=== PATIENT | male | born 1950 | race African-American/Black ===

== ENCOUNTER → 2016-06-26 | Outpatient (CLI) | payer MEDICAID ==
[2014-07-05 12:32] VITALS: BP 166/74
[2016-06-26 16:06] LABS: BASOPHILS # (AUTO) 0.1 X10^3/uL (0.0-0.1); BASOPHILS % (AUTO) 1.5 % (0.2-1.0); EOSINOPHILS # (AUTO) 0.3 x10^3/uL (0.0-0.2); EOSINOPHILS % (AUTO) 3.7 % (0.9-2.9); HEMATOCRIT 35.1 % (42.0-54.0); HEMOGLOBIN 10.9 g/dL (13.5-18.0); LYMPHOCYTES # (AUTO) 2.1 X10^3/uL (1.3-2.9); MEAN CORPUSCULAR HEMOGLOBIN 22.2 pg (27.0-34.0); MEAN CORPUSCULAR VOLUME 71.6 fL (80.0-100.0); MEAN PLATELET VOLUME 6.8 fL (7.4-11.0); MONOCYTES # (AUTO) 0.8 x10^3/uL (0.3-0.8); MONOCYTES % (AUTO) 10.6 % (0.0-13.0); NEUTROPHILS # (AUTO) 4.1 x10^3/uL (2.2-4.8); NEUTROPHILS % (AUTO) 55.2 % (42.0-75.0); PLATELET COUNT 399 X10^3/uL (150.0-450.0); RED BLOOD COUNT 4.91 X10^6/uL (4.7-6.0); WHITE BLOOD COUNT 7.4 X10^3/uL (3.6-10.0)
[2016-06-26 16:12] LABS: CREATININE,URINE 298.78 mg/dL (40-278); MICROALBUMIN,URINE 32.1 mg/L
[2016-06-26 16:14] LABS: HEMOGLOBIN A1C 6.8 % (4.5-6.2)
[2016-06-26 16:34] LABS: HYPOCHROMASIA 1+
[2016-06-26 16:37] LABS: ANISOCYTOSIS SLIGHT; BURR CELLS SLIGHT; TARGET CELLS SLIGHT
[2016-06-26 16:38] LABS: OVALOCYTES SLIGHT
[2016-06-26 16:52] LABS: ERYTHROCYTE SEDIMENTATION RATE 40 MM/HOUR (0-15)
[2016-06-26 16:53] LABS: PLATELET MORPHOLOGY COMMENT NORMAL (NORMAL)
[2016-06-26 16:59] LABS: BLOOD UREA NITROGEN 8 mg/dL (7-18); CALCIUM 8.7 mg/dL (8.5-10.1); CARBON DIOXIDE 27.1 mmol/L (21-32); CHLORIDE 103 mmol/L (98-107); COR NA(FOR HYPERGLY) 143 mmol/L (136-145); CREATININE 0.94 mg/dL (0.70-1.30); GLUCOSE 180 mg/dL (65-99); SODIUM 141 mmol/L (136-145); eGFR BLACK RACES > 60 (>60); eGFR NON BLACK RACES > 60 (>60)
--- NOTE | 2016-06-26 17:41 | RAD ---
HISTORY: Cough Study: PA and lateral Comparison: 06/13/2014 Findings: The trachea is midline. The heart is borderline enlarged but unchanged. The pulmonary vessels are n ormal. There is mild linear densities along the lung bases which are more prominent. There are mild degenerative changes throughout the spine. No effusion is seen. The bones are intact. IMPRESSION: Mild discoid atelectasis or scarring along the lung bases which is more prominent. Reported By:
--- NOTE | 2016-06-26 18:17 | RAD ---
HISTORY: Right hip pain Study: AP pelvis and frog-leg view right hip Comparison: None Findings: A single frontal view of the pelvis demonstrates the pelvic ring to be intact. No evidence for acut e cortical disruption or dislocation of the hip can be observed. Frog leg views of the hip fails to demonstrate evidence for fracture or significant joint abnormality. Impression: Mild joint space narrowing in both hips with no acute fracture. Reported By:
== END ==
LOC: LAB 14:53
PROVIDERS: ATTEND Nurse Practitioner Family
DX: M25.551 Pain in right hip (principal); R05 Cough; E11.40 Type 2 diabetes mellitus with diabetic neuropathy, unspecified
CPT/HCPCS: 36415; 71020; 73501; 80048; 82043; 83036; 85025; 85652; 86140

== ENCOUNTER → 2016-07-13 | Outpatient (CLI) | payer MEDICAID ==
[2014-07-05 12:32] VITALS: BP 166/74
[2016-07-13 10:05] LABS: URIC ACID 5.7 mg/dL (3.5-7.2)
[2016-07-13 10:07] LABS: BASOPHILS # (AUTO) 0.1 X10^3/uL (0.0-0.1); BASOPHILS % (AUTO) 1.7 % (0.2-1.0); EOSINOPHILS # (AUTO) 0.3 x10^3/uL (0.0-0.2); EOSINOPHILS % (AUTO) 4.5 % (0.9-2.9); HEMATOCRIT 36.6 % (42.0-54.0); HEMOGLOBIN 11.4 g/dL (13.5-18.0); LYMPHOCYTES # (AUTO) 1.9 X10^3/uL (1.3-2.9); MEAN CORPUSCULAR HEMOGLOBIN 22.3 pg (27.0-34.0); MEAN CORPUSCULAR HGB CONC 31.2 g/dL (33.0-35.0); MEAN CORPUSCULAR VOLUME 71.4 fL (80.0-100.0); MONOCYTES # (AUTO) 0.7 x10^3/uL (0.3-0.8); MONOCYTES % (AUTO) 10.8 % (0.0-13.0); NEUTROPHILS # (AUTO) 3.3 x10^3/uL (2.2-4.8); PLATELET COUNT 357 X10^3/uL (150.0-450.0); RED BLOOD COUNT 5.13 X10^6/uL (4.7-6.0); RED CELL DISTRIBUTION WIDTH 18.6 % (11.6-16.5); WHITE BLOOD COUNT 6.3 X10^3/uL (3.6-10.0)
[2016-07-13 10:46] LABS: ANISOCYTOSIS SLIGHT; HYPOCHROMASIA 1+; PLATELET MORPHOLOGY COMMENT NORMAL (NORMAL)
[2016-07-15 06:48] LABS: ANTI-NUCLEAR ANTIBODY TEST None Detected (None Detected)
== END ==
LOC: LAB 08:59
PROVIDERS: ATTEND Nurse Practitioner Family
DX: M25.551 Pain in right hip (principal); D64.89 Other specified anemias
CPT/HCPCS: 36415; 82607; 82728; 82746; 84466; 84550; 85025; 86200; 86308

== ENCOUNTER → 2016-07-27 | Outpatient (CLI) | payer MEDICAID ==
[2014-07-05 12:32] VITALS: BP 166/74
[2016-07-27 08:46] LABS: BASOPHILS # (AUTO) 0.1 X10^3/uL (0.0-0.1); BASOPHILS % (AUTO) 1.5 % (0.2-1.0); EOSINOPHILS # (AUTO) 0.4 x10^3/uL (0.0-0.2); HEMATOCRIT 35.8 % (42.0-54.0); HEMOGLOBIN 10.9 g/dL (13.5-18.0); LYMPHOCYTES # (AUTO) 3.2 X10^3/uL (1.3-2.9); LYMPHOCYTES % (AUTO) 41.3 % (21.0-51.0); MEAN CORPUSCULAR HEMOGLOBIN 22.1 pg (27.0-34.0); MEAN CORPUSCULAR HGB CONC 30.3 g/dL (33.0-35.0); MEAN CORPUSCULAR VOLUME 72.9 fL (80.0-100.0); MONOCYTES # (AUTO) 1.2 x10^3/uL (0.3-0.8); MONOCYTES % (AUTO) 15.8 % (0.0-13.0); NEUTROPHILS # (AUTO) 2.8 x10^3/uL (2.2-4.8); NEUTROPHILS % (AUTO) 36.4 % (42.0-75.0); PLATELET COUNT 352 X10^3/uL (150.0-450.0); RED BLOOD COUNT 4.91 X10^6/uL (4.7-6.0); RED CELL DISTRIBUTION WIDTH 19.2 % (11.6-16.5); WHITE BLOOD COUNT 7.8 X10^3/uL (3.6-10.0)
[2016-07-27 08:56] LABS: ALANINE AMINOTRANSFERASE 16 Units/L (12-78); ALBUMIN 3.1 g/dL (3.4-5.0); ALKALINE PHOSPHATASE 85 Units/L (46-116); ASPARTATE AMINO TRANSFERASE 13 Units/L (15-37); BLOOD UREA NITROGEN 8 mg/dL (7-18); CALCIUM 8.8 mg/dL (8.5-10.1); CHLORIDE 109 mmol/L (98-107); COR CA(FOR HYPOALB) 9.5 mg/dL (8.5-10.1); CREATININE 0.89 mg/dL (0.70-1.30); GLUCOSE 58 mg/dL (65-99); SODIUM 146 mmol/L (136-145); TOTAL PROTEIN 7.9 g/dL (6.4-8.2); eGFR BLACK RACES > 60 (>60); eGFR NON BLACK RACES > 60 (>60)
[2016-07-27 09:23] LABS: ANISOCYTOSIS 1+; HYPOCHROMASIA 1+; PLATELET MORPHOLOGY COMMENT NORMAL (NORMAL)
--- NOTE | 2016-07-29 08:46 | RAD ---
Skeletal bone survey, 30 two views provided Indication: Chronic pain in multiple joints Cervical spine without acute fracture or malalignment. No sclerotic or lytic lesion. Thoracic and jamie mbar spine demonstrates moderate multilevel spondylosis without lytic or sclerotic lesion. No lesion identified within the skull. Pelvis and bilateral proximal femoral are normal. No abnormality ident ified within either humerus. Curvilinear sclerotic lesions within the proximal right tibia and dista l right tibia are again noted. Postsurgical change with removal of hardware within the distal right fibular diaphysis. Left tibia demonstrates similar curvilinear sclerotic lesions within the proximal and distal tibial metaphysis. Curvilinear sclerotic lesion within the distal right radial metaphysi s. Similar sclerotic lesion within distal left radial metaphysis. Curvilinear sclerotic lesion withi n distal right femoral metaphysis. 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 No acute lytic or sclerotic lesion identified within the axial or appendicu lar skeleton. Reported By:
[2016-07-29 20:48] LABS: ALBUMIN (SPEP) 3.34 g/dL (3.75-5.01); ALPHA-1 (SPEP) 0.58 g/dL (0.19-0.46); ALPHA-2 (SPEP) 1.08 g/dL (0.48-1.05); GAMMA (SPEP) 1.38 g/dL (0.62-1.51)
== END ==
LOC: LAB 07:33
PROVIDERS: ATTEND Nurse Practitioner Family
DX: G89.29 Other chronic pain (principal)
CPT/HCPCS: 36415; 77075; 80053; 84165; 84166; 85025

== ENCOUNTER 2016-07-30 07:54 | Day surgery (SDC) | payer MEDICAID ==
[2016-07-30] MEDS ORDERED: D5 LR 1000 ML 1,000 ML IV ONE (08:05)
[2016-07-30] MEDS ORDERED: DIPRIVAN VIAL 20 ML ONE (09:50)
[2016-07-30 11:36] VITALS: BP 147/67
== END 2016-07-30 10:30 | disposition home or self-care (01) ==
LOC: SURG1 07:54
PROVIDERS: ATTEND Internal Medicine Gastroenterology
PROC: 0DJ08ZZ Inspection of Upper Intestinal Tract, Via Natural or Artificial Opening Endoscopic (ICD-10-PCS; principal; 2016-07-30 10:30)
DX: D50.8 Other iron deficiency anemias (principal); K21.9 Gastro-esophageal reflux disease without esophagitis; R10.13 Epigastric pain; K25.9 Gastric ulcer, unspecified as acute or chronic, without hemorrhage or perforation; K20.8 Other esophagitis
CPT/HCPCS: A4217; J3490; J7120

== ENCOUNTER → 2016-07-31 | Outpatient (CLI) | payer MEDICAID ==
[2016-07-30 11:36] VITALS: BP 147/67
[2016-08-05 07:48] LABS: KAPPA LIGHT CHAINS 6.13 mg/dL (0.33-1.94); LAMBDA LIGHT CHAIN 3.24 mg/dL (0.57-2.63)
[2016-08-05 22:38] LABS: ALBUMIN (SPEP) 3.32 g/dL (3.75-5.01); ALPHA-1 (SPEP) 0.58 g/dL (0.19-0.46); ALPHA-2 (SPEP) 1.15 g/dL (0.48-1.05); GAMMA (SPEP) 1.36 g/dL (0.62-1.51)
[2016-08-06 06:32] LABS: KAPPA/LAMBDA RATIO 1.89 (0.26-1.65)
== END ==
LOC: LAB 15:50
PROVIDERS: ATTEND Nurse Practitioner Family
DX: M89.8X8 Other specified disorders of bone, other site (principal)
CPT/HCPCS: 83883; 84157; 84165; 84166

== ENCOUNTER 2016-08-06 06:51 | Day surgery (SDC) | payer MEDICAID ==
[2016-08-06] MEDS ORDERED: D5 LR 1000 ML 1,000 ML IV ONE (07:20)
[2016-08-06] MEDS ORDERED: DIPRIVAN VIAL 20 ML ONE ×2 (08:33→08:45)
[2016-08-06 09:46] VITALS: BP 137/70
== END 2016-08-06 09:15 | disposition home or self-care (01) ==
LOC: SURG1 06:51
PROVIDERS: ATTEND Internal Medicine Gastroenterology
PROC: 0DJD8ZZ Inspection of Lower Intestinal Tract, Via Natural or Artificial Opening Endoscopic (ICD-10-PCS; principal; 2016-08-06 07:30)
PROC: 0DBH8ZX Excision of Cecum, Via Natural or Artificial Opening Endoscopic, Diagnostic (ICD-10-PCS; principal; 2016-08-06 07:30)
DX: D50.8 Other iron deficiency anemias (principal); R71.0 Precipitous drop in hematocrit; Z86.010 Personal history of colon polyps; R19.4 Change in bowel habit; K63.5 Polyp of colon; K57.30 Diverticulosis of large intestine without perforation or abscess without bleeding; K64.0 First degree hemorrhoids
CPT/HCPCS: A4217; J3490; J7120

== ENCOUNTER → 2016-09-07 | Outpatient (CLI) | payer MEDICAID ==
[2016-09-07 08:12] LABS: BASOPHILS # (AUTO) 0.1 X10^3/uL (0.0-0.1); EOSINOPHILS # (AUTO) 0.3 x10^3/uL (0.0-0.2); EOSINOPHILS % (AUTO) 5.1 % (0.9-2.9); HEMATOCRIT 34.1 % (42.0-54.0); HEMOGLOBIN 10.7 g/dL (13.5-18.0); LYMPHOCYTES # (AUTO) 2.6 X10^3/uL (1.3-2.9); LYMPHOCYTES % (AUTO) 39.3 % (21.0-51.0); MEAN CORPUSCULAR HEMOGLOBIN 22.1 pg (27.0-34.0); MEAN CORPUSCULAR HGB CONC 31.3 g/dL (33.0-35.0); MEAN CORPUSCULAR VOLUME 70.7 fL (80.0-100.0); MEAN PLATELET VOLUME 6.9 fL (7.4-11.0); MONOCYTES % (AUTO) 15.5 % (0.0-13.0); NEUTROPHILS # (AUTO) 2.6 x10^3/uL (2.2-4.8); NEUTROPHILS % (AUTO) 38.1 % (42.0-75.0); PLATELET COUNT 371 X10^3/uL (150.0-450.0); RED BLOOD COUNT 4.83 X10^6/uL (4.7-6.0); WHITE BLOOD COUNT 6.7 X10^3/uL (3.6-10.0)
[2016-09-07 08:24] LABS: ALANINE AMINOTRANSFERASE 25 Units/L (12-78); ALBUMIN 3.1 g/dL (3.4-5.0); ALKALINE PHOSPHATASE 74 Units/L (46-116); ASPARTATE AMINO TRANSFERASE 19 Units/L (15-37); BLOOD UREA NITROGEN 11 mg/dL (7-18); CALCIUM 8.8 mg/dL (8.5-10.1); CARBON DIOXIDE 26.6 mmol/L (21-32); CHLORIDE 109 mmol/L (98-107); COR CA(FOR HYPOALB) 9.5 mg/dL (8.5-10.1); CREATININE 0.94 mg/dL (0.70-1.30); GLUCOSE 54 mg/dL (65-99); SODIUM 142 mmol/L (136-145); TOTAL PROTEIN 7.6 g/dL (6.4-8.2); eGFR BLACK RACES > 60 (>60); eGFR NON BLACK RACES > 60 (>60)
[2016-09-07 08:40] LABS: HYPOCHROMASIA 1+; MICROCYTOSIS 1+; PLATELET MORPHOLOGY COMMENT NORMAL (NORMAL); POIKILOCYTOSIS SLIGHT
== END ==
LOC: LAB 07:45
PROVIDERS: ATTEND Internal Medicine Hematology & Oncology
DX: D47.2 Monoclonal gammopathy (principal); D50.8 Other iron deficiency anemias; E53.8 Deficiency of other specified B group vitamins
CPT/HCPCS: 36415; 80053; 85025

== ENCOUNTER → 2016-10-19 | Outpatient (CLI) | payer OTHER, MEDICAID ==
[2016-10-19 08:05] LABS: BASOPHILS # (AUTO) 0.1 X10^3/uL (0.0-0.1); BASOPHILS % (AUTO) 1.3 % (0.2-1.0); EOSINOPHILS # (AUTO) 0.2 x10^3/uL (0.0-0.2); HEMATOCRIT 35.8 % (42.0-54.0); HEMOGLOBIN 11.4 g/dL (13.5-18.0); LYMPHOCYTES # (AUTO) 2.3 X10^3/uL (1.3-2.9); MEAN CORPUSCULAR HEMOGLOBIN 23.2 pg (27.0-34.0); MEAN CORPUSCULAR HGB CONC 31.7 g/dL (33.0-35.0); MEAN CORPUSCULAR VOLUME 73.1 fL (80.0-100.0); MEAN PLATELET VOLUME 7.1 fL (7.4-11.0); MONOCYTES # (AUTO) 0.9 x10^3/uL (0.3-0.8); MONOCYTES % (AUTO) 15.2 % (0.0-13.0); NEUTROPHILS # (AUTO) 2.6 x10^3/uL (2.2-4.8); NEUTROPHILS % (AUTO) 42.5 % (42.0-75.0); PLATELET COUNT 326 X10^3/uL (150.0-450.0); RED CELL DISTRIBUTION WIDTH 22.8 % (11.6-16.5); WHITE BLOOD COUNT 6.1 X10^3/uL (3.6-10.0)
[2016-10-19 08:20] LABS: ALANINE AMINOTRANSFERASE 36 Units/L (12-78); ALBUMIN 3.1 g/dL (3.4-5.0); ALKALINE PHOSPHATASE 90 Units/L (46-116); ASPARTATE AMINO TRANSFERASE 16 Units/L (15-37); BLOOD UREA NITROGEN 6 mg/dL (7-18); CALCIUM 8.7 mg/dL (8.5-10.1); CARBON DIOXIDE 28.9 mmol/L (21-32); CHLORIDE 102 mmol/L (98-107); CHOL/HDL RATIO 7.7 (0.0-5.0); CHOLESTEROL 146 mg/dL (0-200); COR CA(FOR HYPOALB) 9.4 mg/dL (8.5-10.1); COR NA(FOR HYPERGLY) 135 mmol/L (136-145); CREATININE 0.93 mg/dL (0.70-1.30); GLUCOSE 131 mg/dL (65-99); HDL CHOLESTEROL 19 mg/dL (40-60); SODIUM 134 mmol/L (136-145); TOTAL PROTEIN 7.8 g/dL (6.4-8.2); TRIGLYCERIDES 73 mg/dL (0-150); eGFR BLACK RACES > 60 (>60); eGFR NON BLACK RACES > 60 (>60)
[2016-10-19 08:21] LABS: CREATININE,URINE 158.06 mg/dL (40-278); MICROALBUMIN,URINE 10.8 mg/L
[2016-10-19 08:30] LABS: HEMOGLOBIN A1C 6.5 % (4.5-6.2)
[2016-10-19 08:34] LABS: PLATELET MORPHOLOGY COMMENT NORMAL (NORMAL)
[2016-10-19 08:35] LABS: ANISOCYTOSIS 2+; HYPOCHROMASIA 1+; MICROCYTOSIS SLIGHT
--- NOTE | 2016-10-19 08:39 | RAD ---
Left shoulder, three views Indication: Chronic left shoulder pain Comparison: October 21, 2012 Findings: No acute fracture subluxation is identified. There is patchy sclerosis of the left humeral head, compatible with osteonecrosis without evidence of articular collapse or significant secondary OA. There is mild DJD of the AC joint. The acromiohumeral interval is within normal limits. Soft ti ssues are unremarkable. Impression: Osteonecrosis of the humeral head without evidence of subchondral collapse or significant secondary OA. Mild AC joint DJD. Reported By:
[2016-10-19 11:17] LABS: IRON 30 ug/dL (50-175); TOTAL IRON BINDING CAPACITY 361 ug/dL (250-450); TOTAL PSA 0.27 ng/mL (0.13-4.0)
== END ==
LOC: LAB 07:12
PROVIDERS: ATTEND Nurse Practitioner Family
DX: D64.9 Anemia, unspecified (principal); I10 Essential (primary) hypertension; E11.40 Type 2 diabetes mellitus with diabetic neuropathy, unspecified; R35.8 Other polyuria; E61.1 Iron deficiency; M25.512 Pain in left shoulder; M19.012 Primary osteoarthritis, left shoulder; R39.15 Urgency of urination
CPT/HCPCS: 36415; 73030; 80053; 80061; 82043; 83036; 83540; 83550; 84153; 85025

== ENCOUNTER 2016-12-17 07:21 | Day surgery (SDC) | payer OTHER, MEDICAID ==
[2016-12-17] MEDS ORDERED: NS 1000 ML 1,000 ML ONE (07:40)
[2016-12-17] MEDS ORDERED: ROBINUL ONE (09:22)
[2016-12-17] MEDS ORDERED: FENTANYL INJ 100 mcg ONE (09:22)
[2016-12-17] MEDS ORDERED: DIPRIVAN VIAL 10 ML ONE (09:22)
[2016-12-17] MEDS ORDERED: VERSED ONE (09:37)
[2016-12-17 10:01] VITALS: BP 167/74
== END 2016-12-17 09:56 | disposition home or self-care (01) ==
LOC: SURG1 07:21 → EDSEX 07:21 → SURG1 09:56
PROVIDERS: ATTEND Internal Medicine Gastroenterology
PROC: 0DB38ZX Excision of Lower Esophagus, Via Natural or Artificial Opening Endoscopic, Diagnostic (ICD-10-PCS; principal; 2016-12-17 09:30)
PROC: 0DB68ZX Excision of Stomach, Via Natural or Artificial Opening Endoscopic, Diagnostic (ICD-10-PCS; principal; 2016-12-17 09:30)
PROC: 0DJ08ZZ Inspection of Upper Intestinal Tract, Via Natural or Artificial Opening Endoscopic (ICD-10-PCS; principal; 2016-12-17 09:30)
DX: K25.9 Gastric ulcer, unspecified as acute or chronic, without hemorrhage or perforation (principal); K21.9 Gastro-esophageal reflux disease without esophagitis; K29.60 Other gastritis without bleeding; K20.8 Other esophagitis
CPT/HCPCS: A4217; J2250; J3010; J3490

== ENCOUNTER → 2017-01-06 | Outpatient (CLI) | payer OTHER, MEDICAID ==
[2017-01-06 08:57] LABS: BASOPHILS % (AUTO) 0.3 % (0.2-1.0); EOSINOPHILS # (AUTO) 0.3 x10^3/uL (0.0-0.2); EOSINOPHILS % (AUTO) 4.5 % (0.9-2.9); HEMATOCRIT 39.6 % (42.0-54.0); HEMOGLOBIN 13.1 g/dL (13.5-18.0); LYMPHOCYTES # (AUTO) 2.3 X10^3/uL (1.3-2.9); LYMPHOCYTES % (AUTO) 32.5 % (21.0-51.0); MEAN CORPUSCULAR HEMOGLOBIN 27.1 pg (27.0-34.0); MEAN CORPUSCULAR HGB CONC 33.2 g/dL (33.0-35.0); MEAN CORPUSCULAR VOLUME 81.8 fL (80.0-100.0); MEAN PLATELET VOLUME 7.4 fL (7.4-11.0); MONOCYTES # (AUTO) 1.1 x10^3/uL (0.3-0.8); MONOCYTES % (AUTO) 15.3 % (0.0-13.0); NEUTROPHILS # (AUTO) 3.3 x10^3/uL (2.2-4.8); NEUTROPHILS % (AUTO) 47.4 % (42.0-75.0); PLATELET COUNT 275 X10^3/uL (150.0-450.0); RED BLOOD COUNT 4.85 X10^6/uL (4.7-6.0); RED CELL DISTRIBUTION WIDTH 22.4 % (11.6-16.5)
[2017-01-06 09:06] LABS: ALANINE AMINOTRANSFERASE 21 Units/L (12-78); ALKALINE PHOSPHATASE 105 Units/L (46-116); ASPARTATE AMINO TRANSFERASE 13 Units/L (15-37); BLOOD UREA NITROGEN 6 mg/dL (7-18); CALCIUM 8.7 mg/dL (8.5-10.1); CARBON DIOXIDE 25.9 mmol/L (21-32); CHLORIDE 104 mmol/L (98-107); COR CA(FOR HYPOALB) 9.5 mg/dL (8.5-10.1); CREATININE 0.97 mg/dL (0.70-1.30); SODIUM 141 mmol/L (136-145); TOTAL PROTEIN 7.6 g/dL (6.4-8.2); eGFR BLACK RACES > 60 (>60); eGFR NON BLACK RACES > 60 (>60)
[2017-01-06 09:34] LABS: ANISOCYTOSIS 1+; PLATELET MORPHOLOGY COMMENT NORMAL (NORMAL)
[2017-01-06 09:36] LABS: IRON 42 ug/dL (50-175); TOTAL IRON BINDING CAPACITY 323 ug/dL (250-450)
[2017-01-08 05:19] LABS: KAPPA LIGHT CHAINS 6.29 mg/dL (0.33-1.94); LAMBDA LIGHT CHAIN 2.62 mg/dL (0.57-2.63)
[2017-01-08 14:02] LABS: IMMUNOGLOBULIN M 57 mg/dL (35-263)
[2017-01-08 15:50] LABS: ALBUMIN (SPEP) 3.32 g/dL (3.75-5.01); ALPHA-1 (SPEP) 0.37 g/dL (0.19-0.46); ALPHA-2 (SPEP) 1.19 g/dL (0.48-1.05); GAMMA (SPEP) 1.41 g/dL (0.62-1.51)
--- NOTE | 2017-01-11 07:08 | MRI ---
MRI left shoulder without contrast Indication: Left shoulder pain Technique: Multiplanar, multi sequence imaging of the left shoulder without IV contrast administratio n. Comparison: Radiographs performed on 10/19/2016 Findings: There is a large curvilinear area of decreased T1 and increased T2 signal within the left h umeral head most severely affecting the posterior lateral head. There is surrounding decreased T1 and T2 signal within the lesion consistent with osteonecrosis. There is no significant bone marrow edema adjacent to the area of osteonecrosis within the humeral head or neck. There is fragmentation of the superior humeral head with tracts of fluid extending from the humeral head cortex into the medullary bone for example on coronal image 12. Small osteophyte is noted within the medial humeral head as we ll. Moderate-sized joint effusion within the glenohumeral joint. Diffuse tendinopathy of the supraspinatus and infraspinatus tendon with low grade approximate 25% art icular surface tearing of the distal infraspinatus tendon. No muscle atrophy within the supraspinatus or infraspinatus tendons. Subscapularis tendon is normal. Intra-articular long head biceps tendon is also normal. There is mild increased T2 signal within the superior and posterior superior labrum consistent with n ondisplaced, degenerative tearing. The posterior labrum also demonstrates abnormal morphology and int ermediate T2 signal consistent with a degenerative tear. No acute or displaced labral tear is present . The distal acromion is type 1. AC joint demonstrates mild synovial osseous hypertrophic change. There is no mass effect on the adjacent rotator cuff. Impression: 1.Fairly large volume osteonecrosis of the humeral head most severely affecting the posterior lateral humeral head articular surface with mild subchondral collapse and fragmentation of the superior femo ral head cortex. Small surface osteophyte is also present within the medial humeral head. There is no significant bone marrow edema within the adjacent humeral head or neck junction. 2. Moderate diffuse tendinopathy of the supraspinatus and infraspinatus tendons with low-grade articu lar surface fraying/tearing of the distal infraspinatus tendon. 3. Degenerative tear of the superior, posterior superior and posterior labrum, there is no evidence o f acute or displaced labral tear. 4. Mild to moderate glenohumeral osteoarthrosis with moderate-size glenohumeral joint effusion. 5. Mild osteoarthrosis of the AC joint, there is no evidence of mass effect of the rotator cuff by de generative changes at the AC joint. Reported By:
== END | disposition home or self-care (01) ==
LOC: EDSEX → RAD 08:08
PROVIDERS: ATTEND Orthopaedic Surgery
DX: D47.2 Monoclonal gammopathy (principal); M25.512 Pain in left shoulder; M25.712 Osteophyte, left shoulder; S43.492A Other sprain of left shoulder joint, initial encounter; X58.XXXA Exposure to other specified factors, initial encounter; M19.012 Primary osteoarthritis, left shoulder; M87.822 Other osteonecrosis, left humerus
CPT/HCPCS: 36415; 73221; 80053; 82607; 82728; 82784; 83540; 83550; 83883; 84165; 85025; 86334

== ENCOUNTER → 2017-01-19 | Outpatient (CLI) | payer OTHER, MEDICAID ==
[2017-01-19 14:26] LABS: CREATININE,URINE 173.65 mg/dL (40-278); MICROALBUMIN,URINE 7.9 mg/L
--- NOTE | 2017-01-20 08:17 | MRI ---
MRI SPINE LUMBAR WITHOUT CONTRAST CLINICAL HISTORY: 66-year-old male with chronic low back pain and bilateral radicular symptoms. COMPARISON: Radiographs of the lumbar spine 07/05/2014. Technique: Multiplanar, multisequence MRI images of the lumbar spine were obtained without the admin istration of contrast. FINDINGS: The most caudad, fully-formed intervertebral disc will be labeled L5-S1 for the purpose of this dictation. Straightening of the lumbar lordosis as imaged. Subtle degenerative retrolisthesis L4 on L5 and L5 on S1. Vertebral body heights are preserved. Loss of disc space L4-S1 with associated s ignal loss. Marrow signal is unremarkable with remaining disc signal preserved. Cord signal is normal . The conus medullaris is normal in signal characteristics and morphology and terminates at the L1-2 level. T11-T12: Symmetric disc bulge with far right lateral annular fissure. No central canal or neural fora any stenosis. T12-L1: Large symmetric disc bulge without central canal or neural foraminal stenosis. L1-L2: Large symmetric disc bulge without central canal or neural foraminal stenosis. L2-L3: Large symmetric disc bulge with moderate facet hypertrophy and thickened ligamentum flavum no significant central canal or neural foraminal stenosis. Buckle ligamentum flavum contacts the dorsal aspect of the exiting right L2 nerve root. L3-L4: Large symmetric disc bulge with moderate to severe facet hypertrophy with thickened ligamentum flavum with mild bilateral neural foraminal stenosis and severe bilateral subarticular recess stenos is. Disc bulge contacts the ventral aspect of the exiting L3 nerve roots bilaterally as well as trans iting L4 nerve roots along the ventral aspect. No significant central canal stenosis. L4-L5: Severe symmetric disc bulge with severe facet hypertrophy and thickened ligamentum flavum. Ruby tral canal is concentrically narrowed to 6.8 mm with moderate left and moderate to severe right neura l foraminal stenosis. There is engagement of the ventral dorsal aspects of the exiting L4 nerve roots with mild flattening. L5-S1: Large symmetric disc bulge with a central extruded component with inferior migration and annul ar fissure centrally along the inferior aspect. Moderate facet hypertrophy. No central canal stenosis . Severe bilateral subarticular recess stenosis with mild bilateral neural foraminal stenosis. Disc b ulge contacts the ventral aspect of the exiting and transiting L5 and S1 nerve roots bilaterally. Paraspinous soft tissues are unremarkable. IMPRESSION: 1. Multilevel disc degeneration and spondyloarthropathy, most severe L4-L5 with concentric narrowing of the central canal and significant bilateral neural foraminal stenosis with engagement of the exiti ng and transiting nerve roots. 2. See level by level descriptions above. Reported By:
== END | disposition home or self-care (01) | DRG 74 ==
LOC: RAD 13:57
PROVIDERS: ATTEND Psychiatry & Neurology Neurology
DX: E11.40 Type 2 diabetes mellitus with diabetic neuropathy, unspecified (principal); R29.898 Other symptoms and signs involving the musculoskeletal system; M51.36 Other intervertebral disc degeneration, lumbar region; M47.896 Other spondylosis, lumbar region; M48.061 Spinal stenosis, lumbar region without neurogenic claudication
CPT/HCPCS: 36415; 72148; 82043; 83036

== ENCOUNTER → 2017-01-21 | Outpatient (CLI) | payer OTHER, MEDICAID | LOC: RAD 14:32 | PROVIDERS: ATTEND Psychiatry & Neurology Neurology | DX: R29.898 Other symptoms and signs involving the musculoskeletal system (principal); M62.81 Muscle weakness (generalized) | CPT/HCPCS: 93306 ==

== ENCOUNTER → 2017-02-22 | Outpatient (CLI) | payer OTHER, MEDICAID ==
[~2017-02-22] MED LIST: LEXISCAN IV ONE
[2017-02-22 12:26] LABS: BILIRUBIN,URINE NEGATIVE (NEGATIVE); BLOOD/HEMOGLOBIN,URINE NEGATIVE (NEGATIVE); GLUCOSE, URINE NEGATIVE (NEGATIVE); KETONES,URINE NEGATIVE (NEGATIVE); LEUKOCYTE ESTERASE ,URINE NEGATIVE (NEGATIVE); NITRITES,URINE NEGATIVE (NEGATIVE); PROTEIN,URINE NEGATIVE (NEGATIVE); UROBILINOGEN,URINE 1+ (NORMAL)
[2017-02-22 12:26] LABS: BASOPHILS # (AUTO) 0.1 X10^3/uL (0.0-0.1); BASOPHILS % (AUTO) 1.3 % (0.2-1.0); EOSINOPHILS # (AUTO) 0.2 x10^3/uL (0.0-0.2); EOSINOPHILS % (AUTO) 3.8 % (0.9-2.9); HEMATOCRIT 42.7 % (42.0-54.0); HEMOGLOBIN 14.1 g/dL (13.5-18.0); LYMPHOCYTES # (AUTO) 1.9 X10^3/uL (1.3-2.9); LYMPHOCYTES % (AUTO) 31.1 % (21.0-51.0); MEAN CORPUSCULAR HEMOGLOBIN 28.2 pg (27.0-34.0); MEAN CORPUSCULAR VOLUME 85.3 fL (80.0-100.0); MEAN PLATELET VOLUME 7.5 fL (7.4-11.0); MONOCYTES # (AUTO) 0.7 x10^3/uL (0.3-0.8); MONOCYTES % (AUTO) 11.5 % (0.0-13.0); NEUTROPHILS # (AUTO) 3.2 x10^3/uL (2.2-4.8); NEUTROPHILS % (AUTO) 52.3 % (42.0-75.0); PLATELET COUNT 257 X10^3/uL (150.0-450.0); RED BLOOD COUNT 5.01 X10^6/uL (4.7-6.0); RED CELL DISTRIBUTION WIDTH 17.8 % (11.6-16.5); WHITE BLOOD COUNT 6.2 X10^3/uL (3.6-10.0)
[2017-02-22 12:29] LABS: ALANINE AMINOTRANSFERASE 23 Units/L (12-78); ALBUMIN 3.4 g/dL (3.4-5.0); ALKALINE PHOSPHATASE 110 Units/L (46-116); ASPARTATE AMINO TRANSFERASE 16 Units/L (15-37); BLOOD UREA NITROGEN 6 mg/dL (7-18); CALCIUM 8.9 mg/dL (8.5-10.1); CARBON DIOXIDE 32.4 mmol/L (21-32); CHLORIDE 103 mmol/L (98-107); CREATININE 0.73 mg/dL (0.70-1.30); SODIUM 143 mmol/L (136-145); TOTAL PROTEIN 8.2 g/dL (6.4-8.2); eGFR BLACK RACES > 60 (>60); eGFR NON BLACK RACES > 60 (>60)
--- NOTE | 2017-02-22 12:35 | RAD ---
Examination: Chest, PA and lateral views History: Preop Comparison reference: 06/26/2016 Findings: Continued normal heart size. There is no acute pulmonary or pleural lesion identified. Ther e is mild chronic bibasal interstitial prominence related to peribronchial thickening. No pleural flu id or hilar lesion demonstrated. Appearance of the thoracic spine is consistent with DISH. Impression: No significant change or acute disease demonstrated. Reported By:
[2017-02-22 12:39] LABS: APPEARANCE,URINE CLEAR (CLEAR); BACTERIA,URINE TRACE /HPF (NEGATIVE); COLOR,URINE YELLOW (YELLOW); RBC,URINE 0-1 /HPF (NEGATIVE); SQUAMOUS EPITHELIAL CELL,UR MODERATE /HPF (NEGATIVE)
[2017-02-22 13:19] LABS: ERYTHROCYTE SEDIMENTATION RATE 36 MM/HOUR (0-15)
== END ==
LOC: RAD 08:21
PROVIDERS: ATTEND Internal Medicine Cardiovascular Disease
DX: Z01.818 Encounter for other preprocedural examination (principal); Z79.899 Other long term (current) drug therapy; Z11.8 Encounter for screening for other infectious and parasitic diseases; Z79.01 Long term (current) use of anticoagulants; Z01.810 Encounter for preprocedural cardiovascular examination; Z01.811 Encounter for preprocedural respiratory examination; M87.022 Idiopathic aseptic necrosis of left humerus; I20.9 Angina pectoris, unspecified
CPT/HCPCS: 36415; 71020; 78452; 80053; 81001; 85025; 85610; 85652; 85730; 86140; 86850; 86900; 86901; 87640; 87641; 93005; 93010; 93017; A4222; A9502; J2785

== ENCOUNTER 2017-02-23 08:30 | Inpatient (IN) | payer MEDICAID ==
[2017-03-08] MEDS ORDERED: D5 LR 1000 ML 1,000 ML IV ONE (07:41)
[2017-03-08] MEDS ORDERED: ANCEF VIAL 1 GM ONE (07:42)
[2017-03-08] MEDS ORDERED: NS 100 ML IV 100 ML IV ONE (07:42)
[2017-03-08] MEDS ORDERED: MARCAINE 0.25% INJ ONE (07:50)
[2017-03-08] MEDS ORDERED: XYLOCAINE 1% and EPINEPHRINE 1:100,000 ONE ×2 (07:50→08:26)
[2017-03-08] MEDS ORDERED: FENTANYL INJ 100 mcg ONE (07:59)
[2017-03-08] MEDS ORDERED: NAROPIN 0.75% EPI ONE (08:02)
[2017-03-08 08:14] VITALS: BMI 34.4
[2017-03-08] MEDS ORDERED: PREVNAR 13 IM ONE (08:14)
[2017-03-08] MEDS ORDERED: FENTANYL INJ 250 mcg ONE ×2 (08:42→09:37)
[2017-03-08] MEDS: HYDROGEN PEROXIDE 3% ONE ×2 (09:42→11:48)
[2017-03-08] MEDS: BACTROBAN OINT ONE ×2 (09:43→11:48)
[2017-03-08] MEDS ORDERED: NS IRRIGATION 1000 ML 1,000 ML with BACITRACIN VIAL 50,000 UNT IR ONE ×2 (09:44)
[2017-03-08] MEDS ORDERED: VERSED ONE (10:35)
[2017-03-08] MEDS ORDERED: XYLOCAINE 2 % (PLAIN) ONE (10:35)
[2017-03-08] MEDS ORDERED: QUELICIN (OR ANECTINE) ONE (10:35)
[2017-03-08] MEDS ORDERED: ULTANE GAS IN ONE (10:35)
[2017-03-08] MEDS ORDERED: NEOSTIGMINE INJ ONE (10:35)
[2017-03-08] MEDS ORDERED: ROBINUL ONE (10:35)
[2017-03-08] MEDS ORDERED: ZOFRAN INJ 4 MG VIAL ONE (10:35)
[2017-03-08] MEDS ORDERED: NORCURON INJ 10 MG VIAL ONE (10:35)
[2017-03-08] MEDS ORDERED: LR 1000 ML IV 1,000 ML IV ONE (10:58)
[2017-03-08] MEDS: DILAUDID INJ ONE ×5 (12:02→13:01)
[2017-03-08] MEDS ORDERED: PHENERGAN INJ 25 MG IVP PRN (12:33)
[2017-03-08] MEDS ORDERED: BENADRYL INJ 50 MG VIAL IVP PRN (12:33)
[2017-03-08] MEDS ORDERED: REGLAN INJ 10 MG VIAL IVP PRN (12:33)
[2017-03-08] MEDS ORDERED: ZOFRAN INJ 4 MG VIAL IVP PRN (12:33)
[2017-03-08] MEDS ORDERED: DILAUDID INJ IVP PRN (12:33)
[2017-03-08] MEDS: MORPHINE SULFATE PCA 30 MG IVP PRN (14:19)
--- NOTE | 2017-03-08 14:46 | RAD ---
Examination: Left shoulder, three views History: Postop Comparison reference 10/19/2016 Findings: Arthroplasty has been performed, and there is no evidence for displacement, periprosthetic fracture, hardware abnormality. The expected postsurgical soft tissue changes are observed. Impression: Interval performance left TSA; no postoperative abnormality demonstrated. Reported By:
[2017-03-08] MEDS: LR 1000 ML IV 1,000 ML IV SCH (16:49)
[2017-03-09] MEDS: MORPHINE SULFATE PCA 30 MG IVP PRN (02:55)
[2017-03-09 05:39] LABS: BASOPHILS # (AUTO) 0.1 X10^3/uL (0.0-0.1); BASOPHILS % (AUTO) 0.9 % (0.2-1.0); EOSINOPHILS % (AUTO) 0.3 % (0.9-2.9); HEMATOCRIT 40.1 % (42.0-54.0); HEMOGLOBIN 13.3 g/dL (13.5-18.0); LYMPHOCYTES # (AUTO) 1.8 X10^3/uL (1.3-2.9); MEAN CORPUSCULAR HEMOGLOBIN 28.4 pg (27.0-34.0); MEAN CORPUSCULAR HGB CONC 33.3 g/dL (33.0-35.0); MEAN CORPUSCULAR VOLUME 85.5 fL (80.0-100.0); MEAN PLATELET VOLUME 7.3 fL (7.4-11.0); MONOCYTES # (AUTO) 1.7 x10^3/uL (0.3-0.8); MONOCYTES % (AUTO) 14.9 % (0.0-13.0); NEUTROPHILS # (AUTO) 7.6 x10^3/uL (2.2-4.8); NEUTROPHILS % (AUTO) 67.9 % (42.0-75.0); PLATELET COUNT 209 X10^3/uL (150.0-450.0); RED BLOOD COUNT 4.69 X10^6/uL (4.7-6.0); RED CELL DISTRIBUTION WIDTH 17.4 % (11.6-16.5); WHITE BLOOD COUNT 11.2 X10^3/uL (3.6-10.0)
[2017-03-09 06:08] LABS: BLOOD UREA NITROGEN 5 mg/dL (7-18); CARBON DIOXIDE 28.9 mmol/L (21-32); CHLORIDE 101 mmol/L (98-107); COR NA(FOR HYPERGLY) 140 mmol/L (136-145); SODIUM 139 mmol/L (136-145)
[2017-03-09 06:14] LABS: CALCIUM 8.2 mg/dL (8.5-10.1); CREATININE 0.84 mg/dL (0.70-1.30); eGFR BLACK RACES > 60 (>60); eGFR NON BLACK RACES > 60 (>60)
[2017-03-09] MEDS ORDERED: K-RIDER 10 MEQ/NS 100 ML 10 MEQ/100 ML BAG IV PRN (06:27)
[2017-03-09] MEDS ORDERED: POTASSIUM CHLORIDE LIQ 20 MEQ UDC PO PRN (06:27)
[2017-03-09] MEDS ORDERED: POTASSIUM CHL 60 MEQ/NS 0.45% 500 ML IV PRN (06:27)
[2017-03-09] MEDS ORDERED: K-LYTE EFFERVESCENT PO PRN (06:27)
[2017-03-09] MEDS ORDERED: POTASSIUM CHL 40 MEQ/NS 0.45% 500 ML IV PRN (06:27)
[2017-03-09] MEDS ORDERED: MAG-OX TAB PO PRN (06:27)
[2017-03-09] MEDS: LR 1000 ML IV 1,000 ML IV SCH ×2 (09:20→16:47)
[2017-03-09] MEDS ORDERED: NS 500 ML IV 500 ML IV ONE (10:07)
[2017-03-09] MEDS: MAGNESIUM SULFATE 1 GM/100 mL PREMIX 1 GM/100 ML BAG IV PRN ×4 (10:16→15:13)
[2017-03-09] MEDS: MILK OF MAGNESIA PO SCH ×2 (11:11→21:25)
[2017-03-09] MEDS: COLACE CAP 100 MG PO SCH ×2 (11:11→21:25)
[2017-03-09] MEDS: LEVAQUIN PREMIX IV 250 MG 250 MG/50 ML BAG IV SCH (11:11)
--- NOTE | 2017-03-09 14:25 | PCM.PROG ---
Progress Note - Progress Note for Day of Date: 03/09/17 - Subjective Subjective: doing very well. pain well controlled. dressing clean and dry. labs normal. vital stable. - Past Medical Family Social History Allergies: Allergies No Known Drug Allergies Allergy (Verified 03/08/17 08:33) - Vital Signs and I&O's Vital Signs: Temperature 100.3 F Pulse Rate [Right Radial] 97 Pulse Rate 81 Respiratory Rate 20 Blood Pressure [Left Arm] 165/70 Blood Pressure 155/88 O2 Sat by Pulse Oximetry 98 Intake and Output: Intake & Output 03/07/17 03/08/17 03/09/17 03/10/17 11:59 11:59 11:59 11:59 Intake Total 1080 Output Total 1350 Balance -1350 1080 - Physical Exam Mood Description: Calm Speech Pattern: Clear - Laboratory and Diagnostics Result Diagrams: 03/09/17 05:10 03/09/17 05:10 Labs: Laboratory WBC 11.2 X10^3/uL (3.6-10.0) H 03/09/17 05:10 RBC 4.69 X10^6/uL (4.7-6.0) L 03/09/17 05:10 Hgb 13.3 g/dL (13.5-18.0) L 03/09/17 05:10 Hct 40.1 % (42.0-54.0) L 03/09/17 05:10 MCV 85.5 fL (80.0-100.0) 03/09/17 05:10 MCH 28.4 pg (27.0-34.0) 03/09/17 05:10 MCHC 33.3 g/dL (33.0-35.0) 03/09/17 05:10 RDW 17.4 % (11.6-16.5) H 03/09/17 05:10 Plt Count 209 X10^3/uL (150.0-450.0) 03/09/17 05:10 MPV 7.3 fL (7.4-11.0) L 03/09/17 05:10 Neut % 67.9 % (42.0-75.0) 03/09/17 05:10 Lymph % 16.0 % (21.0-51.0) L 03/09/17 05:10 [place] % 14.9 % (0.0-13.0) H 03/09/17 05:10 Eos % 0.3 % (0.9-2.9) L 03/09/17 05:10 Baso % 0.9 % (0.2-1.0) 03/09/17 05:10 Neut # 7.6 x10^3/uL (2.2-4.8) H 03/09/17 05:10 Lymph # 1.8 X10^3/uL (1.3-2.9) 03/09/17 05:10 [place] # 1.7 x10^3/uL (0.3-0.8) H 03/09/17 05:10 Eos # 0.0 x10^3/uL (0.0-0.2) 03/09/17 05:10 Baso # 0.1 X10^3/uL (0.0-0.1) 03/09/17 05:10 Absolute Nucleated RBC 0.1 /100WBC 03/09/17 05:10 Sodium 139 mmol/L (136-145) 03/09/17 05:10 Corrected Sodium 140 mmol/L (136-145) 03/09/17 05:10 Potassium 3.5 mmol/L (3.5-5.1) 03/09/17 05:10 Chloride 101 mmol/L (98-107) 03/09/17 05:10 Carbon Dioxide 28.9 mmol/L (21-32) 03/09/17 05:10 BUN 5 mg/dL (7-18) L 03/09/17 05:10 Creatinine 0.84 mg/dL (0.70-1.30) 03/09/17 05:10 Est GFR (MDRD) Af Amer > 60 (>60) 03/09/17 05:10 Est GFR (MDRD) Non-Af > 60 (>60) 03/09/17 05:10 Glucose 132 mg/dL (65-99) H 03/09/17 05:10 POC Glucose (mg/dL) 172 mg/dL (65-99) H 03/09/17 11:15 Calcium 8.2 mg/dL (8.5-10.1) L 03/09/17 05:10 Magnesium 1.2 mg/dL (1.7-2.9) L 03/09/17 05:10 Blood Type B POSITIVE 03/04/17 12:38 Antibody Screen Negative 03/04/17 12:38 Crossmatch See Detail 03/04/17 12:38 - Plan (1) Shoulder joint replacement status Status: Acute Qualifiers: Laterality: left Qualified Code(s): Z96.612 - Presence of left artificial shoulder joint Plan: PO pain meds. dressing change tomorrow. social service agency director for discharge planning tomorrow. follow up as advised. use shoulder immobilizer as advised.
--- NOTE | 2017-03-09 14:55 | OR.GENERIC ---
Post-Op Note Generic - Post-Op Note Operative Report: preoperative diagnosis-LEFT shoulder avascular necrosis stage III, proximal humerus Postoperative diagnosis-LEFT shoulder avascular necrosis stage III, proximal humerus Procedure-LEFT shoulder hemiarthroplasty implants used -Alistair re [place] TSA a .11 modular humeral stem b. humeral head 44 22 mm Indications- 66-year-old malewith LEFT humeral avascular necrosis. Stage III. Patient presented to my office with LEFT shoulder pain and inability to move the LEFT shoulder for many months to a year. X-rays are suggestive for avascular necrosis with collapse of LEFT humeral head. This was confirmed with an MRI. Treatment discussions were done with him. Patient had an intact rotator cuff and had no osteoarthritic changes in the glenoid surface and so was posted for hemiarthroplasty of the LEFT shoulder. He was taken through the procedure in detail. Preoperative and postoperative course was explained to them in detail. Complications including but not limited to infection, osteomyelitis, hemorrhage, neurovascular damage, axillary nerve injury, stiffness, need for revision, fracture, loosening a few of the complications which were discussed with them. They understood and verbalized same. Patient was seen in the preoperative holding area. Limb was marked. Patient got an appropriate block. Consent was again revisited. Patient was brought to the operating room. Patient was put under generous anesthesia and endotracheal intubation was completed. Patient was placed in a beachchair position. Limb was tapped and draped. A deltopectoral approach was used. Incision measuring about 10-15 cm was placed from the tip of the coracoid process. Dissection carried down through subcutaneous chest tissue to expose the deltopectoral groove. Cephalic vein identified and protected throughout the procedure. Tributaries on the lateral side where ligated and the cephalic vein was retracted medially. A deep retractor was placed retracting the pectoralis major on the medial side and a deltoid retractor was placed retracting the deltoid. Dissection carried down to the deep tissue to expose the biceps tendon. Biceps tendon identified and protected throughout the procedure. Subscapularis had to be resected from the lesser tuberosity to expose the humeral head as well as the glenoid. The subscapularis was tagged with the #1 Ethibond. At this stage the rotator cuff where identified and protected. Rotator cuff did not show any significant tear showed minimal tear on the undersurface. Capsulotomy completedanteriorly and the the humeral head dislocated with the extension and external rotation. Humeral head delivered into the wound. Using using a targeting jig and a planned osteotomy was marked. An extramedullary alignment jig was placed parallel to the femoral shaft and at 135.retroversion was determined and fine performed to be around 30-40 of retroversion. with the elbow flexed at 90 and the forearm rotated about 30-40 of external rotation, the targeting [employer] fixed in place with pins. The neck osteotomy was completed through the slot of the jig. The resected head measured about 46 millimeter in diameter. There was collapse of the humeral head noted. Osteophytes are also noted. Superior and inferior retractors were placed to protect the rotator cuff as well as the axillary nerve and the vessels. An entry was made on the lateral aspect of the neck cut corresponding to the long axis of the humerus. Medullary canal was entered with the 8mm medullary reamer which was reamed manually. Sequential reaming was done manually up to size 11. It was ensured that the reaming was up to the top of the cutting teeth as well using a press-fit stem. at this time for preparation of the humerus was done with sequential broaching. the broach was advanced with appropriate version dialed into it.Started from 8 and size 11 was found to be a very good fit. It was confirmed with C-arm. Calcar was reamed and the neck cut was smoothened. The glenoid was exposed and on inspection no arthritis was noted and it was decided to not proceed with glenoid resurfacing. Humeral head was trialed with single radius as well as multiple reduced heads and a size 4422 humeral head was found to be suitable and stable. the broach was extracted after trialing. Thorough irrigation was done and definitive prosthesis was opened. A press-fit stem size 11 was mounted on the insertion device. After thorough irrigation of the medullary canal the press-fit stem was driven into the humeral shaft without much difficulty. There was a good fit with the anterolateral flexion of about 30-40 . The definitive head was mounted on the Ruiz taper after cleaning the Ruiz taper. The humeral head was reduced. Thorough irrigation was done. 2-3 drill holes were made in the lesser tuberosity and exiting medially. Multiple sutures which were placed in the subscapularis was retrieved with a Hall suture passer. Subscapularis repair was performeddirectly to the bone through multiple drill holes. The limb was placed in internal rotation for the repair. Thorough irrigation was done. Wound was closed in layers. hemostasis was maintained. sterile dressing was placed. Patient was woken up from the surgery. Patient was extubated. An LEFT shoulder immobilizer was applied. Patient reports shift to the PACU in stable condition. Postop x-ray shows satisfactory placement of the humeral processes and nipple reduced humeral head without any complications. The family was updated about surgery and the postoperative course. Patient will be admitted for pain control. He'll be placed on a [employer] morphine pump. We will plan on discharging him in the next few days. All questions were answered.
[2017-03-09] MEDS: PERCOCET TAB 5/325 MG PO PRN (16:26)
[2017-03-09] MEDS ORDERED: HumuLIN R SUBCUT PRN (18:07)
[2017-03-09] MEDS ORDERED: SNACK - Diabetic Appropriate PO SCH (20:00)
[2017-03-10 05:25] LABS: BASOPHILS # (AUTO) 0.1 X10^3/uL (0.0-0.1); BASOPHILS % (AUTO) 0.5 % (0.2-1.0); EOSINOPHILS % (AUTO) 0.3 % (0.9-2.9); HEMATOCRIT 38.9 % (42.0-54.0); LYMPHOCYTES # (AUTO) 1.1 X10^3/uL (1.3-2.9); LYMPHOCYTES % (AUTO) 10.1 % (21.0-51.0); MEAN CORPUSCULAR HEMOGLOBIN 28.6 pg (27.0-34.0); MEAN CORPUSCULAR HGB CONC 33.3 g/dL (33.0-35.0); MEAN CORPUSCULAR VOLUME 85.9 fL (80.0-100.0); MEAN PLATELET VOLUME 7.6 fL (7.4-11.0); MONOCYTES # (AUTO) 1.7 x10^3/uL (0.3-0.8); MONOCYTES % (AUTO) 15.1 % (0.0-13.0); NEUTROPHILS # (AUTO) 8.3 x10^3/uL (2.2-4.8); PLATELET COUNT 187 X10^3/uL (150.0-450.0); RED BLOOD COUNT 4.53 X10^6/uL (4.7-6.0); WHITE BLOOD COUNT 11.2 X10^3/uL (3.6-10.0)
[2017-03-10 05:32] LABS: BLOOD UREA NITROGEN 5 mg/dL (7-18); CARBON DIOXIDE 30.2 mmol/L (21-32); CHLORIDE 100 mmol/L (98-107); COR NA(FOR HYPERGLY) 137 mmol/L (136-145); CREATININE 0.73 mg/dL (0.70-1.30); MAGNESIUM 2.1 mg/dL (1.7-2.9); SODIUM 136 mmol/L (136-145); eGFR BLACK RACES > 60 (>60); eGFR NON BLACK RACES > 60 (>60)
[2017-03-10] MEDS: LEVAQUIN PREMIX IV 250 MG 250 MG/50 ML BAG IV SCH (09:34)
[2017-03-10] MEDS: MILK OF MAGNESIA PO SCH (09:34)
[2017-03-10] MEDS ORDERED: FERROUS SULFATE 325 MG PO SCH (09:45)
[2017-03-10] MEDS ORDERED: LORATADINE 10 MG PO SCH (09:45)
[2017-03-10] MEDS ORDERED: PATIENT'S HOME MEDICATION (Glimepiride [Glimepiride 2 Mg] 2 MG) PO SCH (09:45)
[2017-03-10] MEDS ORDERED: PATIENT'S HOME MEDICATION (Losartan Potassium [Losartan Potassium] 25 MG) PO SCH (09:45)
[2017-03-10] MEDS ORDERED: NEURONTIN CAP 300 MG PO SCH (10:00)
[2017-03-10] MEDS ORDERED: ASPIRIN EC 81 MG PO SCH (10:00)
[2017-03-10] MEDS ORDERED: NEURONTIN CAP 100 MG PO SCH (10:00)
[2017-03-10] MEDS ORDERED: ZETIA TAB 10 MG PO SCH (10:00)
--- NOTE | 2017-03-10 10:28 | PCM.PROG ---
Progress Note - Progress Note for Day of Date: 03/09/17 - Subjective Subjective: IS STATUS POST LEFT TOTAL SHOULDER REPLACEMENT. SURGERY WAS ON 03/08/17 BY . CONSULTED US FOR MEDICAL CARE WHILE PATIENT IS IN THE HOSPITAL. TODAY, HE IS ALERT AND ORIENTED, LYING IN BED ON MORNING ROUNDS. HE IS NOTED WITH COMPLAINTS OF LEFT SHOULDER PAIN. ON EXAMINATION, HEART IS NORMAL IN RATE AND RHYTHM. LUNGS ARE CLEAR BILATERALLY TO AUSCULTATION. ABDOMEN IS ROUND, SOFT, AND NON-TENDER WITH NORMAL BOWEL SOUNDS NOTED IN ALL QUADRANTS. THERE IS A SURGICAL DRESSING NOTED TO THE LEFT SHOULDER. DRESSING IS DRY AND INTACT WITH NO SIGNS OF INFECTION NOTED TO SITE. HIS VITAL SIGNS THIS MORNING ARE 101.1-98-22-99%-195/87. ABNORMAL LAB VALUES INCLUDE THE FOLLOWING: WBC 11.2, RBC 4.53, HGB 13.0, HCT 38.9, BUN 5, GLUCOSE 132, CALCIUM 8.2, MAGNESIUM 1.2. HE WILL RECEIVE PHYSICAL THERAPY AND OCCUPATIONAL THERAPY TODAY. WE WILL CONTINUE WITH CURRENT PLAN OF CARE. OTHERWISE, WE WILL FOLLOW UP WITH AM LABS AND CONTINUE TO MONITOR PATIENT. - Past Medical Family Social History Past Med/Fam/Surg Hx: No changes since H&P Allergies: Allergies No Known Drug Allergies Allergy (Verified 03/08/17 08:33) - Review of Systems ROS: No change since H&P - Vital Signs and I&O's Vital Signs: Temperature 98.5 F Pulse Rate [Right Radial] 111 Pulse Rate 81 Respiratory Rate 22 Blood Pressure [Left Arm] 159/67 Blood Pressure 155/88 O2 Sat by Pulse Oximetry 93 Intake and Output: Intake & Output 03/07/17 03/08/17 03/09/17 03/10/17 11:59 11:59 11:59 11:59 Intake Total 1080 660 Output Total 1350 795 Balance -1350 1080 -135 - Physical Exam Oriented: Normal Eyes: Normal. negative: Blurred Vision, Diplopia, Discharge, Pain, Redness, Photophobia, Other Ear: Normal. negative: Right, Left, Swelling, Ecchymosis, Hemotypanum, Abrasion , Laceration Nose: Normal. negative: Injected, Discharge, Blood, Other Throat: Normal. negative: Tonsillar Hypertrophy, Red, Exudate, Dry, Other Respiratory: Normal. negative: Right, Left, Generalized, Superior, Inferior, Diminished, Wheezes, Rales, Rhonchi, OTHER Cardiovascular: Normal. negative: Tachycardia, Bradycardia, Irregular, S3, S4, Systolic, Diastolic, Murmur, Edema, Other : Normal. negative: Dysuria, Hematuria, Frequency, Discharge, Testicular Pain , Bleeding, , Other Auscultation: Bowel Sounds: Normal. negative: Bruit, Absent, Increased, Decreased, High Pitched, Other Palpation: Normal Tenderness: Normal. negative: Rebound, Guarding, Rigidity Skin: Normal, Wound (SURGICAL WOUND LEFT SHOULDER ) Musculoskeletal: Left, Shoulder, Tender Psychiatric: Normal Mood Description: Calm Affect: Normal Speech Pattern: Clear - Laboratory and Diagnostics Result Diagrams: 03/10/17 04:25 03/10/17 04:25 Labs: Laboratory WBC 11.2 X10^3/uL (3.6-10.0) H 03/10/17 04:25 RBC 4.53 X10^6/uL (4.7-6.0) L 03/10/17 04:25 Hgb 13.0 g/dL (13.5-18.0) L 03/10/17 04:25 Hct 38.9 % (42.0-54.0) L 03/10/17 04:25 MCV 85.9 fL (80.0-100.0) 03/10/17 04:25 MCH 28.6 pg (27.0-34.0) 03/10/17 04:25 MCHC 33.3 g/dL (33.0-35.0) 03/10/17 04:25 RDW 17.0 % (11.6-16.5) H 03/10/17 04:25 Plt Count 187 X10^3/uL (150.0-450.0) 03/10/17 04:25 MPV 7.6 fL (7.4-11.0) 03/10/17 04:25 Neut % 74.0 % (42.0-75.0) 03/10/17 04:25 Lymph % 10.1 % (21.0-51.0) L 03/10/17 04:25 [place] % 15.1 % (0.0-13.0) H 03/10/17 04:25 Eos % 0.3 % (0.9-2.9) L 03/10/17 04:25 Baso % 0.5 % (0.2-1.0) 03/10/17 04:25 Neut # 8.3 x10^3/uL (2.2-4.8) H 03/10/17 04:25 Lymph # 1.1 X10^3/uL (1.3-2.9) L 03/10/17 04:25 [place] # 1.7 x10^3/uL (0.3-0.8) H 03/10/17 04:25 Eos # 0.0 x10^3/uL (0.0-0.2) 03/10/17 04:25 Baso # 0.1 X10^3/uL (0.0-0.1) 03/10/17 04:25 Absolute Nucleated RBC 0.0 /100WBC 03/10/17 04:25 Sodium 136 mmol/L (136-145) 03/10/17 04:25 Corrected Sodium 137 mmol/L (136-145) 03/10/17 04:25 Potassium 3.6 mmol/L (3.5-5.1) 03/10/17 04:25 Chloride 100 mmol/L (98-107) 03/10/17 04:25 Carbon Dioxide 30.2 mmol/L (21-32) 03/10/17 04:25 BUN 5 mg/dL (7-18) L 03/10/17 04:25 Creatinine 0.73 mg/dL (0.70-1.30) 03/10/17 04:25 Est GFR (MDRD) Af Amer > 60 (>60) 03/10/17 04:25 Est GFR (MDRD) Non-Af > 60 (>60) 03/10/17 04:25 Glucose 134 mg/dL (65-99) H 03/10/17 04:25 POC Glucose (mg/dL) 129 mg/dL (65-99) H 03/10/17 06:00 Calcium 8.0 mg/dL (8.5-10.1) L 03/10/17 04:25 Magnesium 2.1 mg/dL (1.7-2.9) 03/10/17 04:25 Blood Type B POSITIVE 03/04/17 12:38 Antibody Screen Negative 03/04/17 12:38 Crossmatch See Detail 03/04/17 12:38 - Plan (1) Shoulder joint replacement status Status: Acute Qualifiers: Laterality: left Qualified Code(s): Z96.612 - Presence of left artificial shoulder joint Plan: PO pain meds, wound care, PT/OT, use shoulder immobilizer as advised, continue to monitor
[2017-03-10] MEDS: GLUCOPHAGE PO SCH ×2 (10:44→13:51)
[2017-03-10] MEDS: PERCOCET TAB 5/325 MG PO PRN (11:26)
[2017-03-10 12:20] VITALS: BP 177/80
[2017-03-10] MEDS ORDERED: FLUVIRIN IM ONE (15:34)
[2017-03-10] MEDS ORDERED: ZANAFLEX PO SCH (21:00)
[2017-03-10] MEDS ORDERED: LANTUS SC SCH (21:00)
[2017-03-10] MEDS ORDERED: PATIENT'S HOME MEDICATION (Tizanidine Hcl [Zanaflex 4 Mg] 4 MG) PO SCH (21:00)
[2017-03-10] MEDS ORDERED: ZANTAC PO SCH (21:00)
[2017-03-10] MEDS ORDERED: NIACIN PO SCH (21:00)
[2017-03-10] MEDS ORDERED: NIASPAN ER TAB 500 MG PO SCH (21:00)
[2017-03-11] MEDS ORDERED: AMARYL TAB 4 MG PO SCH (07:00)
[2017-03-11] MEDS ORDERED: COZAAR PO SCH (09:00)
[2017-03-11] MEDS ORDERED: CLARITIN PO SCH (09:00)
[2017-03-11] MEDS ORDERED: HYDROCHLOROTHIAZIDE 12.5 MG CAP PO SCH (09:00)
[2017-03-11] MEDS ORDERED: HEMOCYTE-PLUS PO SCH (09:00)
== END 2017-03-10 16:15 | disposition home or self-care (01) | DRG 483 ==
LOC: OBS 03-08 07:34 → MED/SURG 03-08 11:23
PROVIDERS: ADMIT Orthopaedic Surgery; ATTEND Internal Medicine
PROC: 0RRK0J6 Replacement of Left Shoulder Joint with Synthetic Substitute, Humeral Surface, Open Approach (ICD-10-PCS; principal; 2017-03-09)
PROC: 3E0234Z Introduction of Serum, Toxoid and Vaccine into Muscle, Percutaneous Approach (ICD-10-PCS; 2017-03-09)
DX: M87.022 Idiopathic aseptic necrosis of left humerus (principal); M25.512 Pain in left shoulder; E11.65 Type 2 diabetes mellitus with hyperglycemia; R26.89 Other abnormalities of gait and mobility; Z23 Encounter for immunization; I10 Essential (primary) hypertension; E78.2 Mixed hyperlipidemia
CPT/HCPCS: 36415; 73030; 76000; 80048; 83735; 85025; 86850; 86900; 86901; 86922; 90686; 94640; 94762; A4216; A4222; S0020; 90670; J0330; J0690; J1170; J1956; J2001; J2250; J2271; J2405; J2710; J3010; J3490; J7120

== ENCOUNTER → 2017-03-04 | Outpatient (CLI) | payer OTHER, MEDICAID | LOC: LAB 12:25 | PROVIDERS: ATTEND Orthopaedic Surgery | DX: Z79.899 Other long term (current) drug therapy (principal) | CPT/HCPCS: 86850; 86900; 86901 ==

== ENCOUNTER 2017-04-05 08:47 | Emergency (ER) | payer OTHER, MEDICAID ==
[2017-04-05 09:10] VITALS: BMI 33.9
--- NOTE | 2017-04-05 09:46 | DR.GENAD ---
HPI - PCP Primary Care Physician: COLEMAN DUBON - HPI Comment HPI Comment: HISTORY BELOW. - Complaint/Symptoms Chief Complaint Doctors Comments: PATIENT NOTED TO BE BLEEDING FROM LEFT LATERAL ANKLE AFTER PHYSICAL THERAPY TODAY. NO TRAUMA. CURRENTLY IN ED, NO ACTIVE BLEEDING NOTED. Chief Complaint:: PTS FAMILY BROUGHT HIM HERE WITH C/O OF TAKING HIM TO THERAPY AND SHE NOTICED THAT HIS RIGHT LEG WAS BLEEDING .. Self Treatment fo Chief Complaint: BLOOD ON PTS PANTS LEG AND DRIED BLOOD NOTED TO PTS RIGHT SHOE .. CLOSER EXAM OF PTS RIGHT LOWER FOOT AN ABRASION NOTED .. NO ACITIVE BLEEDING NOTED ,, BR - Nurses notes reviewed Nurses Notes Review: Yes - Source History Provided: Patient - Mode of Arrival Mode of Arrival: Ambulatory - Timing Onset of Chief Complaint: 04/05/17 Came on: Suddenly - Duration Duration: Since Onset Duration: Hours - Severity Severity: Moderate PMH - PMH Past Medical History: Yes Past Medical History: Arthritis, Cirrhosis, Coronary Artery Disease, Dyslipidemia, Hypertension Past Surgical History: Yes Surgical History: Ortho Surgery - Family History History of Family Medical Conditions: Yes Family Medical History: Diabetes Mellitus, Cancer, [place], Heart Failure, Hypertension - Social History Does patient currently use any type of tobacco product: No Have you used tobacco products in the last 12 months: No Type of Tobacco Use: None Does any household member use tobacco: No Alcohol Use: None Do you use any recreational Drugs:: No Lives With: Family Lives Where: Home - infectious screening In the last 2 months have you had wt loss of >10#?: NO Have you had fever, night sweats or hemotysis?: No Have you traveled outside the country in the last 6 months?: No Isolation: Standard ROS - Review of Systems Constitutional: Weakness, Fatigue. negative: Chills, Fever Eyes: negative: Eye Pain, Discharge ENTM: negative: Ear Pain, Nose Discharge, Nose Congestion, Mouth Pain Respiratoy: Short of Breath (ON EXERTION) Cardiovascular: negative: Chest Pain Gastrointestinal/Abdominal: negative: Abdominal Pain, Diarrhea, Nausea, Vomiting Genitourinary: negative: Hematuria Neurological: Weakness Musculoskeletal: Ankle (ABRASION, LT) Integumentary: Bruises (ABRSION LT LAT ANKLE. SOME OLD BLOOD PRESENT.) Hematologic/Lymphatic: Easy Bruising All Other Systems: Reviewed and Negative PE - Vital Signs Vitals: Pulse Rate [Right Radial] 89 Pulse Rate 79 Respiratory Rate 18 Blood Pressure [Right Arm] 159/72 Blood Pressure [Left Arm] 177/80 Blood Pressure 181/87 O2 Sat by Pulse Oximetry 99 - General Limitations: No Limitations General Appearance: Alert - Head Head Exam: Normal Inspection - Eyes Eye exam: negative: PERRL - ENT ENT Exam: Normal External Ear Exam External Ear Exam: Normal External Inspection TM/Canal Exam: Bilateral Normal Nose Exam: Normal Nose Exam Mouth Exam: Normal Inspection - Neck Neck Exam: Trachea Midline - Chest Chest Inspection: Symmetric Chest Wall Rise - Respiratory Respiratory Exam: Normal Lung Sounds Bilat Respiratory Exam: Bilateral Rhonchi, Lower Rhonchi - Cardiovascular Cardiovascular Exam: Regular Rate, Normal Rhythm, Normal Heart Sounds - Abdominal Exam Abdominal Exam: Normal Bowel Sounds, Soft. negative: Tenderness - Extremities Extremities Exam: Edema (3 PLUS LOWER EXTREMITY EDEMA.) - Back Back Exam: Paraspinal Tenderness - Neurologic Neurological Exam: Alert - Psychiatric Psychiatric Exam: Normal Affect, Normal Mood MDM - Differential Diagnosis Differential Diagnosis: LEFT ANKLE ABRSION Course - Treatment Treatment: SEE ORDERS. - Reevaluation 1st: Improved (DRESSING APPLIED TO ABRASION IM ED.) - Education/Counseling Education/Counseling: Patient, Education Educated On: Diagnosis, Needs for Follow Up - Diagnosis Discharge Problem: Ankle abrasion Qualifiers: Encounter type: initial encounter Laterality: left Qualified Code(s): S90.512A - Abrasion, left ankle, initial encounter - Discharge Plan Disposition: 01 HOME, SELF-CARE Condition: Stable - Follow ups/Referrals Follow ups/Referrals: NFD,None [Primary Care Provider] - 3 days - Instructions Instructions: [facility], Adult, [id number] Additional Instructions: RETURN TO ED IF WORSE. YOU ALSO HAVE ABRSION ON YOUR LEFT ANKLE.
[2017-04-05 09:59] VITALS: BP 159/72
== END 2017-04-05 11:00 | disposition home or self-care (01) ==
LOC: ER 09:17
DX: S90.512A Abrasion, left ankle, initial encounter (principal); Y33.XXXA Other specified events, undetermined intent, initial encounter; Y92.9 Unspecified place or not applicable
CPT/HCPCS: 99282

== ENCOUNTER → 2017-04-20 | Outpatient (CLI) | payer OTHER, MEDICAID ==
[2017-04-05 09:59] VITALS: BP 159/72
--- NOTE | 2017-04-20 14:19 | RAD ---
HISTORY: Follow-up left shoulder arthroplasty Study: Left shoulder internal, external, Y-view Comparison: 03/08/2017 Findings: The patient is status post left shoulder hemiarthroplasty. Position and alignment is anatomic. The cl avicle, scapula, left upper ribs, and proximal humerus are intact. There is no evidence for fracture or loosening. IMPRESSION: Status post left shoulder hemiarthroplasty in good position without acute findings Reported By:
== END | disposition home or self-care (01) | DRG 556 ==
LOC: RAD 09:15
PROVIDERS: ATTEND Orthopaedic Surgery
DX: M25.512 Pain in left shoulder (principal); Z96.612 Presence of left artificial shoulder joint
CPT/HCPCS: 73030

== ENCOUNTER → 2017-04-26 | Outpatient (CLI) | payer OTHER, MEDICAID ==
[2017-04-05 09:59] VITALS: BP 159/72
[2017-04-26 07:57] LABS: BASOPHILS # (AUTO) 0.1 X10^3/uL (0.0-0.1); BASOPHILS % (AUTO) 1.4 % (0.2-1.0); EOSINOPHILS # (AUTO) 0.2 x10^3/uL (0.0-0.2); EOSINOPHILS % (AUTO) 3.8 % (0.9-2.9); HEMATOCRIT 39.5 % (42.0-54.0); HEMOGLOBIN 13.2 g/dL (13.5-18.0); LYMPHOCYTES # (AUTO) 2.5 X10^3/uL (1.3-2.9); LYMPHOCYTES % (AUTO) 44.1 % (21.0-51.0); MEAN CORPUSCULAR HGB CONC 33.3 g/dL (33.0-35.0); MEAN CORPUSCULAR VOLUME 86.9 fL (80.0-100.0); MEAN PLATELET VOLUME 7.2 fL (7.4-11.0); MONOCYTES # (AUTO) 0.7 x10^3/uL (0.3-0.8); NEUTROPHILS # (AUTO) 2.2 x10^3/uL (2.2-4.8); NEUTROPHILS % (AUTO) 38.7 % (42.0-75.0); PLATELET COUNT 314 X10^3/uL (150.0-450.0); RED BLOOD COUNT 4.54 X10^6/uL (4.7-6.0); RED CELL DISTRIBUTION WIDTH 16.8 % (11.6-16.5); WHITE BLOOD COUNT 5.6 X10^3/uL (3.6-10.0)
[2017-04-26 08:01] LABS: MICROALBUMIN,URINE 14.1 mg/L
[2017-04-26 08:06] LABS: ALANINE AMINOTRANSFERASE 18 Units/L (12-78); ALBUMIN 3.1 g/dL (3.4-5.0); ALKALINE PHOSPHATASE 81 Units/L (46-116); ASPARTATE AMINO TRANSFERASE 17 Units/L (15-37); BLOOD UREA NITROGEN 7 mg/dL (7-18); CALCIUM 8.9 mg/dL (8.5-10.1); CARBON DIOXIDE 27.6 mmol/L (21-32); CHLORIDE 102 mmol/L (98-107); CHOL/HDL RATIO 4.4 (0.0-5.0); CHOLESTEROL 131 mg/dL (0-200); COR CA(FOR HYPOALB) 9.6 mg/dL (8.5-10.1); CREATININE 0.79 mg/dL (0.70-1.30); HDL CHOLESTEROL 30 mg/dL (40-60); SODIUM 137 mmol/L (136-145); TOTAL PROTEIN 7.9 g/dL (6.4-8.2); TRIGLYCERIDES 104 mg/dL (0-150); eGFR BLACK RACES > 60 (>60); eGFR NON BLACK RACES > 60 (>60)
[2017-04-26 08:23] LABS: TOTAL PSA 0.18 ng/mL (0.13-4.0)
[2017-04-26 09:04] LABS: ERYTHROCYTE SEDIMENTATION RATE 31 MM/HOUR (0-15)
== END ==
LOC: LAB 07:27
PROVIDERS: ATTEND Nurse Practitioner Family
DX: E11.40 Type 2 diabetes mellitus with diabetic neuropathy, unspecified (principal); M10.9 Gout, unspecified; R35.8 Other polyuria; R35.0 Frequency of micturition
CPT/HCPCS: 36415; 80053; 80061; 82043; 83036; 84153; 85025; 85652; 86140

== ENCOUNTER 2017-04-29 08:26 | Day surgery (SDC) | payer OTHER, MEDICAID ==
[2017-04-29] MEDS ORDERED: NS 1000 ML 1,000 ML ONE (08:35)
[2017-04-29] MEDS ORDERED: DIPRIVAN VIAL 20 ML ONE (09:59)
[2017-04-29 12:54] VITALS: BP 157/58
== END 2017-04-29 10:40 | disposition home or self-care (01) ==
LOC: SURG1 08:26
PROVIDERS: ATTEND Internal Medicine Gastroenterology
PROC: 0DJ08ZZ Inspection of Upper Intestinal Tract, Via Natural or Artificial Opening Endoscopic (ICD-10-PCS; principal; 2017-04-29 12:00)
PROC: 0DB68ZX Excision of Stomach, Via Natural or Artificial Opening Endoscopic, Diagnostic (ICD-10-PCS; principal; 2017-04-29 12:00)
DX: R63.4 Abnormal weight loss (principal); R10.13 Epigastric pain; K25.9 Gastric ulcer, unspecified as acute or chronic, without hemorrhage or perforation; K29.60 Other gastritis without bleeding; K20.8 Other esophagitis; K21.9 Gastro-esophageal reflux disease without esophagitis
CPT/HCPCS: A4217; J3490

== ENCOUNTER → 2017-07-05 | Outpatient (CLI) | payer OTHER, MEDICAID ==
[2017-07-05 08:24] LABS: BASOPHILS # (AUTO) 0.1 X10^3/uL (0.0-0.1); BASOPHILS % (AUTO) 1.5 % (0.2-1.0); EOSINOPHILS # (AUTO) 0.2 x10^3/uL (0.0-0.2); EOSINOPHILS % (AUTO) 3.1 % (0.9-2.9); HEMATOCRIT 39.3 % (42.0-54.0); HEMOGLOBIN 12.9 g/dL (13.5-18.0); LYMPHOCYTES # (AUTO) 2.4 X10^3/uL (1.3-2.9); MEAN CORPUSCULAR HEMOGLOBIN 27.6 pg (27.0-34.0); MEAN CORPUSCULAR HGB CONC 32.8 g/dL (33.0-35.0); MEAN CORPUSCULAR VOLUME 84.2 fL (80.0-100.0); MEAN PLATELET VOLUME 7.2 fL (7.4-11.0); MONOCYTES # (AUTO) 0.6 x10^3/uL (0.3-0.8); NEUTROPHILS # (AUTO) 3.4 x10^3/uL (2.2-4.8); NEUTROPHILS % (AUTO) 50.4 % (42.0-75.0); PLATELET COUNT 327 X10^3/uL (150.0-450.0); RED BLOOD COUNT 4.67 X10^6/uL (4.7-6.0); RED CELL DISTRIBUTION WIDTH 16.5 % (11.6-16.5); WHITE BLOOD COUNT 6.8 X10^3/uL (3.6-10.0)
[2017-07-05 08:32] LABS: ALANINE AMINOTRANSFERASE 16 Units/L (12-78); ALBUMIN 3.1 g/dL (3.4-5.0); ALKALINE PHOSPHATASE 75 Units/L (46-116); ASPARTATE AMINO TRANSFERASE 9 Units/L (15-37); BLOOD UREA NITROGEN 6 mg/dL (7-18); CALCIUM 8.7 mg/dL (8.5-10.1); CARBON DIOXIDE 28.3 mmol/L (21-32); CHLORIDE 104 mmol/L (98-107); COR CA(FOR HYPOALB) 9.4 mg/dL (8.5-10.1); CREATININE 0.71 mg/dL (0.70-1.30); SODIUM 143 mmol/L (136-145); TOTAL PROTEIN 7.9 g/dL (6.4-8.2); eGFR BLACK RACES > 60 (>60); eGFR NON BLACK RACES > 60 (>60)
[2017-07-05 09:21] LABS: IRON 27 ug/dL (50-175); TOTAL IRON BINDING CAPACITY 345 ug/dL (250-450)
[2017-07-07 08:50] LABS: KAPPA LIGHT CHAINS 3.83 mg/dL (0.33-1.94); LAMBDA LIGHT CHAIN 2.28 mg/dL (0.57-2.63)
[2017-07-07 15:39] LABS: IMMUNOGLOBULIN M 41 mg/dL (35-263); KAPPA/LAMBDA RATIO 1.68 (0.26-1.65)
[2017-07-08 00:37] LABS: ALBUMIN (SPEP) 3.24 g/dL (3.75-5.01); GAMMA (SPEP) 1.35 g/dL (0.62-1.51)
== END ==
LOC: LAB 07:42
PROVIDERS: ATTEND Internal Medicine Hematology & Oncology
DX: D47.2 Monoclonal gammopathy (principal); D64.9 Anemia, unspecified
CPT/HCPCS: 36415; 80053; 82728; 82784; 83540; 83550; 83883; 84165; 85025; 86334

== ENCOUNTER 2019-03-24 12:02 | Inpatient (IN) ==
[2019-03-24 12:38] VITALS: BMI 38.7
[2019-03-24] MEDS ORDERED: AMOXIL CAP 500 MG PO ONE ×2 (14:02→14:19)
[2019-03-24 14:06] LABS: BASOPHILS # (AUTO) 0.1 X10^3/uL (0.0-0.1); BASOPHILS % (AUTO) 0.6 % (0.2-1.0); EOSINOPHILS # (AUTO) 0.2 x10^3/uL (0.0-0.2); EOSINOPHILS % (AUTO) 2.4 % (0.9-2.9); HEMATOCRIT 37.9 % (42.0-54.0); HEMOGLOBIN 12.7 g/dL (13.5-18.0); LYMPHOCYTES # (AUTO) 1.7 X10^3/uL (1.3-2.9); LYMPHOCYTES % (AUTO) 20.7 % (21.0-51.0); MEAN CORPUSCULAR HEMOGLOBIN 29.6 pg (27.0-34.0); MEAN CORPUSCULAR HGB CONC 33.5 g/dL (33.0-35.0); MEAN CORPUSCULAR VOLUME 88.3 fL (80.0-100.0); MEAN PLATELET VOLUME 6.9 fL (7.4-11.0); MONOCYTES % (AUTO) 12.6 % (0.0-13.0); NEUTROPHILS # (AUTO) 5.3 x10^3/uL (2.2-4.8); NEUTROPHILS % (AUTO) 63.7 % (42.0-75.0); PLATELET COUNT 385 X10^3/uL (150.0-450.0); RED BLOOD COUNT 4.29 X10^6/uL (4.7-6.0); RED CELL DISTRIBUTION WIDTH 16.1 % (11.6-16.5); WHITE BLOOD COUNT 8.3 X10^3/uL (3.6-10.0)
--- NOTE | 2019-03-24 14:08 | DR.SOBA ---
HPI Time Seen Time Seen by Provider: 03/24/19 13:58 Primary Care Physician Primary Care Physician: DR. VILLALTA Complaints Chief Complaint Doctors Comments: A 68 y/o male stating that he's had SOB and coughing for like 1 week now. He has productive cough but no fever. He was sent to the ED for evaluation and tx. by his BUSINESS RULES ANALYST. Chief Complaint:: PT STATES HE WOKE UP THIS AM SOB. REC'D A CALL FROM ARIS DORADO NP PRIOR TO PATIENT'S ARRIVAL THAT STATED THAT PATIENT WAS BEING SENT TO THE ER BECAUSE HIS HOME HEALTH NURSE STATED THAT PATIENT SOUNDED AWFUL. Reviewed Nurses Notes Reviewed: Yes Source History Provided: Patient, Significant Other and EMS Mode of Arrival Mode of Arrival: EMS Timing Onset of Chief Complaint: 03/24/19 Context Onset:: With Light Exertion PE Risk Factors:: None History of:: None Currently on:: Neither Prehospital Care:: None Modifying Factors Worsens:: Nothing Improves:: Nothing Associated Signs and Symptoms Associated Signs and Symptoms: Cough PMH PMH Past Medical History: Yes Past Medical History: Arthritis, Cirrhosis, CHF, COPD, Coronary Artery Disease, CVA, Diabetes, Dyslipidemia, GERD and Hypertension Past Medical History Comment: CHRONIC CONSTIPATION SEBORRHEIC DERMATITIS SHINGLES Past Surgical History: Yes Surgical History: Other Family History History of Family Medical Conditions: Yes Family Medical History: Diabetes Mellitus, Cancer, [place], Heart Failure and Hypertension Social History Do you use any recreational Drugs:: No Lives With: Spouse infectious screening In the last 2 months have you had wt loss of >10#?: NO Have you had fever, night sweats or hemotysis?: No Have you traveled outside the country in the last 6 months?: No Isolation: Standard ROS Review of Systems Constitutional: No Symptoms Reported Eyes: No Symptoms Reported ENTM: No Symptoms Reported Respiratoy: Productive Cough and Short of Breath Cardiovascular: No Symptoms Reported Gastrointestinal/Abdominal: No Symptoms Reported Genitourinary: No Symptoms Reported Neurological: No Symptoms Reported Musculoskeletal: No Symptoms Reported Integumentary: No Symptoms Reported Hematologic/Lymphatic: No Symptoms Reported Endocrine: No Symptoms Reported Psychiatric: No Symptoms Reported PE Vital Signs Vitals: Temperature 97.8 F Pulse Rate [Left Brachial] 64 Pulse Rate 60 Respiratory Rate 18 Blood Pressure [Right Arm] 143/60 Blood Pressure [Left Arm] 143/75 Blood Pressure 137/58 O2 Sat by Pulse Oximetry 94 General Limitations: No Limitations General Appearance: Alert and In No Apparent Distress Head Head Exam: Normal Inspection, Atraumatic and Normocephalic Eyes Eye exam: Normal Appearance and EOMI ENT ENT Exam: Normal Exam, Normal Oropharynx and Mucous Membranes Moist Neck Neck Exam: Normal Inspection, Full ROM and Trachea Midline Chest Chest Inspection: Normal Inspection and Symmetric Chest Wall Rise Respiratory Respiratory Exam: negative Normal Lung Sounds Bilat, Accessory Muscle Use, Chest Wall Tenderness, Prolonged Expiratory Phase, Respiratory Distress and Stridor Respiratory Exam: Bilateral: Rhonchi Cardiovascular Cardiovascular Exam: Regular Rate, Normal Rhythm, +S1 and +S2 Abdominal Exam Abdominal Exam: Normal Inspection, Normal Bowel Sounds and Soft Extremities Extremities Exam: Normal Inspection and Full ROM Back Back Exam: Normal Inspection and Full ROM Neurologic Neurological Exam: Alert and Oriented X3 Psychiatric Psychiatric Exam: Normal Affect and Normal Mood Skin Skin Exam: Dry and Normal Color COURSE Reevaluation 1st: Improved Consultation Consultation Comments: Name: WILEY VARGAS : 1950 Sex: M Location: ER Order Number(s): [id number] Procedure(s):CHEST WITH CON Ordering Physician: MIKE PENA Primary Care: Brooke Villalta M.D. Service Date: 03/24/19 Service Time: 1503 HISTORY:Abnormal chest x-ray, shortness of breath Study: CT chest with contrast Comparison: Same day radiograph Technique: Multiple axial images of the chest were obtained from the thoracic inlet to the upper abdomen after the administration of IV contrast. Dose reduction techniques including Automated Exposure Control (AEC) and adjustment of mA and kV were utilized. Findings: There is a left upper lobe mass measuring 2.9 x 2.7 cm for which malignancy is not excluded. Heart size is normal with calcified plaque throughout the coronary arteries and aorta. The aorta appears normal in caliber. There is a right lower lobe infiltrate that may represent pneumonia, correlate clinically. No effusion or pneumothorax identified. Airways are patent . The soft tissues and osseous structures appear intact. Cholelithiasis noted. IMPRESSION: 1. Left upper lobe mass measuring 2.9 x 2.7 cm concerning for malignancy. Pulmonology follow-up recommended for tissue sampling. 2. Right lower lobe infiltrates suggestive of pneumonia, correlate clinically. 3. Incidental note of cholelithiasis. Electronically signed by: SUNNI CABELLO (Mar 24, 2019 16:14:26) Education/Counseling Education/Counseling: Patient, Education and Counseling Educated On: Treatment, Diagnosis, Prognosis and Needs for Follow Up ROR Labs Reviewed Laboratory Results Reviewed?: Yes Result Diagrams: 03/24/19 12:34 03/24/19 12:34 Laboratory: WBC 8.3 X10^3/uL (3.6-10.0) 03/24/19 12:34 RBC 4.29 X10^6/uL (4.7-6.0) L 03/24/19 12:34 Hgb 12.7 g/dL (13.5-18.0) L 03/24/19 12:34 Hct 37.9 % (42.0-54.0) L 03/24/19 12:34 MCV 88.3 fL (80.0-100.0) 03/24/19 12:34 MCH 29.6 pg (27.0-34.0) 03/24/19 12:34 MCHC 33.5 g/dL (33.0-35.0) 03/24/19 12:34 RDW 16.1 % (11.6-16.5) 03/24/19 12:34 Plt Count 385 X10^3/uL (150.0-450.0) 03/24/19 12:34 MPV 6.9 fL (7.4-11.0) L 03/24/19 12:34 Neut % (Auto) 63.7 % (42.0-75.0) 03/24/19 12:34 Lymph % (Auto) 20.7 % (21.0-51.0) L 03/24/19 12:34 [place] % (Auto) 12.6 % (0.0-13.0) 03/24/19 12:34 Eos % (Auto) 2.4 % (0.9-2.9) 03/24/19 12:34 Baso % (Auto) 0.6 % (0.2-1.0) 03/24/19 12:34 Neut # (Auto) 5.3 x10^3/uL (2.2-4.8) H 03/24/19 12:34 Lymph # (Auto) 1.7 X10^3/uL (1.3-2.9) 03/24/19 12:34 [place] # (Auto) 1.0 x10^3/uL (0.3-0.8) H 03/24/19 12:34 Eos # (Auto) 0.2 x10^3/uL (0.0-0.2) 03/24/19 12:34 Baso # (Auto) 0.1 X10^3/uL (0.0-0.1) 03/24/19 12:34 Absolute Nucleated RBC 0.1 /100WBC 03/24/19 12:34 PT 14.2 SECONDS (11.8-14.3) 03/24/19 12:34 INR Target Range - 03/24/19 12:34 INR 1.14 (0.8-1.3) 03/24/19 12:34 APTT 30.2 SECONDS (22.9-36.5) 03/24/19 12:34 PTT Comment - 03/24/19 12:34 D-Dimer 376 ng/mL (0-400) 03/24/19 12:34 Sodium 139 mmol/L (136-145) 03/24/19 12:34 Corrected Sodium TNP 03/24/19 12:34 Potassium 3.7 mmol/L (3.5-5.1) 03/24/19 12:34 Chloride 100 mmol/L (98-107) 03/24/19 12:34 Carbon Dioxide 31.3 mmol/L (21-32) 03/24/19 12:34 BUN 5 mg/dL (7-18) L 03/24/19 12:34 Creatinine 0.87 mg/dL (0.70-1.30) 03/24/19 12:34 Est GFR (MDRD) Af Amer > 60 (>60) 03/24/19 12:34 Est GFR (MDRD) Non-Af > 60 (>60) 03/24/19 12:34 Glucose 91 mg/dL (65-99) 03/24/19 12:34 Calcium 8.8 mg/dL (8.5-10.1) 03/24/19 12:34 Corrected Calcium 9.8 mg/dL (8.5-10.1) 03/24/19 12:34 Total Bilirubin 0.50 mg/dL (0.2-1.0) 03/24/19 12:34 AST 14 Units/L (15-37) L 03/24/19 12:34 ALT 17 Units/L (12-78) 03/24/19 12:34 Alkaline Phosphatase 84 Units/L (46-116) 03/24/19 12:34 Creatine Kinase 36 Units/L (39-308) L 03/24/19 12:34 CK-MB (CK-2) < 1.0 ng/mL (0-4.0) 03/24/19 12:34 CK/CKMB % Calc 2.8 % (<4) 03/24/19 12:34 Troponin I < 0.02 ng/mL (0-1.5) 03/24/19 12:34 B-Natriuretic Peptide 118 pg/mL (0-79) H 03/24/19 12:34 Total Protein 7.6 g/dL (6.4-8.2) 03/24/19 12:34 Albumin 2.8 g/dL (3.4-5.0) L 03/24/19 12:34 Globulin 4.8 g/dL (2.5-4.5) H 03/24/19 12:34 Albumin/Globulin Ratio 0.6 Ratio (1.1-2.1) L 03/24/19 12:34 Opioid Opioid Risk Tool Age (Ronaldo box if 16-45): No History of Preadolescent Sexual Abuse: No Total: 0 Total Score Risk Category: Low Risk Copyright: Dominic THOMPSON predicting aberrant behaviors Diagnosis Discharge Problem: Lobar pneumonia, unspecified organism, Mass of upper lobe of left lung, Cerebrovascular accident, old
[2019-03-24 14:21] LABS: BLOOD UREA NITROGEN 5 mg/dL (7-18); CALCIUM 8.8 mg/dL (8.5-10.1); CARBON DIOXIDE 31.3 mmol/L (21-32); CHLORIDE 100 mmol/L (98-107); CREATININE 0.87 mg/dL (0.70-1.30); SODIUM 139 mmol/L (136-145); TROPONIN I < 0.02 ng/mL (0-1.5); eGFR NON BLACK RACES > 60 (>60)
[2019-03-24 14:26] LABS: ALANINE AMINOTRANSFERASE 17 Units/L (12-78); ALBUMIN 2.8 g/dL (3.4-5.0); ALKALINE PHOSPHATASE 84 Units/L (46-116); ASPARTATE AMINO TRANSFERASE 14 Units/L (15-37); CKMB % 2.8 % (<4); COR CA(FOR HYPOALB) 9.8 mg/dL (8.5-10.1); CREATINE KINASE 36 Units/L (39-308); CREATINE KINASE MB < 1.0 ng/mL (0-4.0); TOTAL PROTEIN 7.6 g/dL (6.4-8.2)
--- NOTE | 2019-03-24 14:38 | RAD ---
HISTORYShortness of breathSTUDYSingle-view [id number] trachea is midline. The cardiac silhouette is enlarged with a tortuous thoracic aorta. Focal density within the left upper lobe is observed for which developing infiltrate versus pulmonary mass is primary concern. CT of the chest with contrast would better well characterize these findings. The lesion measures 3.7 x 2.9 centimeters. The bony thorax is unremarkable.IMPRESSIONFocal density within the left upper lobe for which underlying pulmonary mass cannot be excluded and CT is recommended for further characterization. Developing infiltrate hand bronchopneumonia could have a similar appearance. The findings are not well appreciated on prior examination.Electronically signed by: KWESI BHAKTA (Mar 24, 2019 14:36:25)
--- NOTE | 2019-03-24 16:16 | CT ---
HISTORY:Abnormal chest x-ray, shortness of breathStudy: CT chest with contrastComparison: Same day radiographTechnique: Multiple axial images of the chest were obtained from the thoracic inlet to the upper abdomen after the administration of IV contrast. Dose reduction techniques including Automated Exposure Control (AEC) and adjustment of mA and kV were utilized.Findings:There is a left upper lobe mass measuring 2.9 x 2.7 cm for which malignancy is not excluded. Heart size is normal with calcified plaque throughout the coronary arteries and aorta. The aorta appears normal in caliber. There is a right lower lobe infiltrate that may represent pneumonia, correlate clinically. No effusion or pneumothorax identified. Airways are patent .The soft tissues and osseous structures appear intact. Cholelithiasis noted.IMPRESSION:1. Left upper lobe mass measuring 2.9 x 2.7 cm concerning for malignancy. Pulmonology follow-up recommended for tissue sampling.2. Right lower lobe infiltrates suggestive of pneumonia, correlate clinically.3. Incidental note of cholelithiasis.Electronically signed by: SUNNI CABELLO (Mar 24, 2019 16:14:26)
[2019-03-24] MEDS ORDERED: FORTAZ or TAZICEF VIAL INJ 1 G in NS 100 ML IV + SPIKE MINIBAG* 100 ML IV SCH (18:26)
[2019-03-24] MEDS ORDERED: FORTAZ or TAZICEF VIAL INJ IM ONE (18:26)
[2019-03-24] MEDS ORDERED: ZITHROMAX INJ 500 MG VIAL 500 MG in NS 250 ML IV 250 ML IV SCH ×4 (18:26)
[2019-03-24] MEDS ORDERED: NS 1/2 1000 ML IV 1,000 ML IV ONE (18:39)
[2019-03-24] MEDS: NS 1/2 1000 ML IV 1,000 ML IV SCH (18:52)
[2019-03-24] MEDS: SNACK - Diabetic Appropriate PO SCH (19:18)
[2019-03-24] MEDS: ROBITUSSIN DM PO SCH ×2 (19:48→21:48)
[2019-03-24] MEDS: DUONEB 0.5 MG/3 MG (3 mL) NEB SCH (20:29)
[2019-03-24] MEDS ORDERED: DUONEB 0.5 MG/3 MG (3 mL) NEB SCH (21:00)
[2019-03-24 21:47] LABS: BILIRUBIN,URINE NEGATIVE (NEGATIVE); BLOOD/HEMOGLOBIN,URINE NEGATIVE (NEGATIVE); GLUCOSE, URINE NEGATIVE (NEGATIVE); KETONES,URINE NEGATIVE (NEGATIVE); LEUKOCYTE ESTERASE ,URINE 1+ (NEGATIVE); NITRITES,URINE NEGATIVE (NEGATIVE); PROTEIN,URINE 1+ (NEGATIVE); UROBILINOGEN,URINE 1+ (NORMAL)
[2019-03-24 21:57] LABS: APPEARANCE,URINE HAZY (CLEAR); COLOR,URINE YELLOW (YELLOW)
[2019-03-24 21:58] LABS: BACTERIA,URINE NEGATIVE /HPF (NEGATIVE); MUCUS,URINE FEW /HPF (NEGATIVE); RBC,URINE NONE SEEN /HPF (0-3); SQUAMOUS EPITHELIAL CELL,UR NEGATIVE /HPF (NEGATIVE)
[2019-03-25] MEDS: DUONEB 0.5 MG/3 MG (3 mL) NEB SCH ×6 (00:45→20:35)
[2019-03-25] MEDS: FORTAZ or TAZICEF VIAL INJ 1 G in NS 100 ML IV + SPIKE MINIBAG* 100 ML IV SCH ×3 (02:34→20:48)
[2019-03-25 06:08] LABS: BASOPHILS # (AUTO) 0.1 X10^3/uL (0.0-0.1); EOSINOPHILS # (AUTO) 0.2 x10^3/uL (0.0-0.2); EOSINOPHILS % (AUTO) 3.9 % (0.9-2.9); HEMATOCRIT 36.4 % (42.0-54.0); HEMOGLOBIN 12.3 g/dL (13.5-18.0); LYMPHOCYTES # (AUTO) 1.7 X10^3/uL (1.3-2.9); LYMPHOCYTES % (AUTO) 28.2 % (21.0-51.0); MEAN CORPUSCULAR HEMOGLOBIN 29.4 pg (27.0-34.0); MEAN CORPUSCULAR HGB CONC 33.7 g/dL (33.0-35.0); MEAN CORPUSCULAR VOLUME 87.3 fL (80.0-100.0); MEAN PLATELET VOLUME 6.7 fL (7.4-11.0); MONOCYTES # (AUTO) 0.9 x10^3/uL (0.3-0.8); MONOCYTES % (AUTO) 14.1 % (0.0-13.0); NEUTROPHILS # (AUTO) 3.2 x10^3/uL (2.2-4.8); NEUTROPHILS % (AUTO) 52.8 % (42.0-75.0); PLATELET COUNT 365 X10^3/uL (150.0-450.0); RED BLOOD COUNT 4.17 X10^6/uL (4.7-6.0); RED CELL DISTRIBUTION WIDTH 15.8 % (11.6-16.5); WHITE BLOOD COUNT 6.1 X10^3/uL (3.6-10.0)
[2019-03-25 06:24] LABS: ALANINE AMINOTRANSFERASE 19 Units/L (12-78); ALBUMIN 2.5 g/dL (3.4-5.0); ALKALINE PHOSPHATASE 69 Units/L (46-116); ASPARTATE AMINO TRANSFERASE 15 Units/L (15-37); BLOOD UREA NITROGEN 3 mg/dL (7-18); CALCIUM 8.4 mg/dL (8.5-10.1); CARBON DIOXIDE 29.6 mmol/L (21-32); CHLORIDE 101 mmol/L (98-107); COR CA(FOR HYPOALB) 9.6 mg/dL (8.5-10.1); CREATININE 0.75 mg/dL (0.70-1.30); SODIUM 139 mmol/L (136-145); TOTAL PROTEIN 6.9 g/dL (6.4-8.2); eGFR NON BLACK RACES > 60 (>60)
[2019-03-25] MEDS ORDERED: ULTRAM PO PRN (08:38)
[2019-03-25] MEDS ORDERED: PATIENT'S HOME MEDICATION (Ranitidine Hcl 150 MG) PO SCH (08:45)
[2019-03-25] MEDS ORDERED: LASIX PO SCH (09:00)
[2019-03-25] MEDS: NEURONTIN CAP 300 MG PO SCH ×2 (09:53→20:50)
[2019-03-25] MEDS: ASPIRIN EC 81 MG PO SCH (09:53)
[2019-03-25] MEDS: LIPITOR TAB 10 MG PO SCH (09:53)
[2019-03-25] MEDS: FERROUS GLUCONATE PO SCH (09:53)
[2019-03-25] MEDS: PROTONIX TAB 40 MG PO SCH (09:53)
[2019-03-25] MEDS: TOPROL XL PO SCH (09:53)
[2019-03-25] MEDS: ROBITUSSIN DM PO SCH ×4 (09:53→20:48)
[2019-03-25] MEDS: COZAAR PO SCH (09:54)
[2019-03-25] MEDS: VSL#3 PO SCH (09:54)
--- NOTE | 2019-03-25 10:09 | DR.H&P ---
H&P History & Physical for Day of: H&P Date: 03/25/19 Chief Complaint Chief Complaint: SOB Allergies Allergies Allergy/AdvReac Type Severity Reaction Status Date / Time No Known Drug Allergies Allergy Verified 11/30/18 11:11 History of Present Illness History of Present Illness: Mr. Barraza is a 68y/o male with a PMH of COPD on intermittent oxygen, HTN, PVD, CHF and tobacco use presents with worsening SOB. Patient has home health due to chronic leg venous stasis ulcers and was advised to go to ED due to abnormal lung exam. He was seen in clinic on 03/06/19 and treated with Levaquin and prednisone. Patient reports increased cough with mucous. Denies fever or chills, no GI symptoms. In the ED, CXR was concerning for RUL pneumonia and possible STEPHANIE mass. CT chest was done and showed a STEPHANIE mass measuring 2.9 x 2.7 cm and RUL pneumonia. Patient was admitted for lobar pneumonia, started on IV abx and bronchodilators. Patient does smoke daily. Past Medical History Past Medical History: Arthritis, Cirrhosis, CHF, COPD, Coronary Artery Disease, CVA, Diabetes, Dyslipidemia, GERD and Hypertension Past Surgical History Surgical History: Unknown Family History Family Medical History: Diabetes Mellitus, Coronary Artery Disease and Heart Failure Social History Does patient currently use any type of tobacco product: Yes Have you used tobacco products in the last 12 months: Yes Type of Tobacco Use: Cigarettes How many years tobacco product used: 50 Does any household member use tobacco: No Alcohol Use: None Drug Use: None Medications Home Medications: No Known Drug Allergies Allergy (Verified 11/30/18 11:11) CONTINUE taking the following medications aspirin [Aspirin Low Dose] 81 mg PO DAILY 03/24/19 [History] atorvastatin 10 mg PO DAILY 03/24/19 [History] docusate sodium [Colace] 100 - 200 mg PO QHS PRN 03/24/19 [History] ezetimibe 10 mg PO QHS 03/24/19 [History] ferrous sulfate [Iron (ferrous sulfate)] 325 mg PO DAILY 03/24/19 [History] furosemide 40 mg PO BID 03/24/19 [History] gabapentin 100 mg PO QNOON 03/24/19 [History] gabapentin 300 mg PO BID 03/24/19 [History] glimepiride 2 mg PO QAM 03/24/19 [History] insulin detemir U-100 [Levemir FlexTouch U-100 Insuln] 5 unit SUBCUT QHS 03/24/19 [History] levocetirizine 5 mg PO DAILY 03/24/19 [History] loratadine 10 mg PO DAILY 03/24/19 [History] losartan 25 mg PO DAILY 03/24/19 [History] metformin 850 mg PO TID 03/24/19 [History] metoprolol succinate 25 mg PO DAILY 03/24/19 [History] niacin 1,000 mg PO QHS 03/24/19 [History] pantoprazole [Protonix] 40 mg PO QAM 03/24/19 [History] potassium chloride 10 meq PO DAILY 03/24/19 [History] ranitidine HCl 150 mg PO QHS 03/24/19 [History] solifenacin 5 mg PO DAILY 03/24/19 [History] tamsulosin 0.4 mg PO QHS 03/24/19 [History] tramadol 100 mg PO TID PRN 03/24/19 [History] Labs Result Diagrams: 03/25/19 05:35 03/25/19 05:35 Labs: 03/24/19 17:43 Sputum - Expectorated Sputum - Final Laboratory WBC 6.1 X10^3/uL (3.6-10.0) 03/25/19 05:35 RBC 4.17 X10^6/uL (4.7-6.0) L 03/25/19 05:35 Hgb 12.3 g/dL (13.5-18.0) L 03/25/19 05:35 Hct 36.4 % (42.0-54.0) L 03/25/19 05:35 MCV 87.3 fL (80.0-100.0) 03/25/19 05:35 MCH 29.4 pg (27.0-34.0) 03/25/19 05:35 MCHC 33.7 g/dL (33.0-35.0) 03/25/19 05:35 RDW 15.8 % (11.6-16.5) 03/25/19 05:35 Plt Count 365 X10^3/uL (150.0-450.0) 03/25/19 05:35 MPV 6.7 fL (7.4-11.0) L 03/25/19 05:35 Neut % (Auto) 52.8 % (42.0-75.0) 03/25/19 05:35 Lymph % (Auto) 28.2 % (21.0-51.0) 03/25/19 05:35 [place] % (Auto) 14.1 % (0.0-13.0) H 03/25/19 05:35 Eos % (Auto) 3.9 % (0.9-2.9) H 03/25/19 05:35 Baso % (Auto) 1.0 % (0.2-1.0) 03/25/19 05:35 Neut # (Auto) 3.2 x10^3/uL (2.2-4.8) 03/25/19 05:35 Lymph # (Auto) 1.7 X10^3/uL (1.3-2.9) 03/25/19 05:35 [place] # (Auto) 0.9 x10^3/uL (0.3-0.8) H 03/25/19 05:35 Eos # (Auto) 0.2 x10^3/uL (0.0-0.2) 03/25/19 05:35 Baso # (Auto) 0.1 X10^3/uL (0.0-0.1) 03/25/19 05:35 Absolute Nucleated RBC 0.0 /100WBC 03/25/19 05:35 PT 14.2 SECONDS (11.8-14.3) 03/24/19 12:34 INR Target Range - 03/24/19 12:34 INR 1.14 (0.8-1.3) 03/24/19 12:34 APTT 30.2 SECONDS (22.9-36.5) 03/24/19 12:34 PTT Comment - 03/24/19 12:34 D-Dimer 376 ng/mL (0-400) 03/24/19 12:34 Sodium 139 mmol/L (136-145) 03/25/19 05:35 Corrected Sodium TNP 03/25/19 05:35 Potassium 3.7 mmol/L (3.5-5.1) 03/25/19 05:35 Chloride 101 mmol/L (98-107) 03/25/19 05:35 Carbon Dioxide 29.6 mmol/L (21-32) 03/25/19 05:35 BUN 3 mg/dL (7-18) L 03/25/19 05:35 Creatinine 0.75 mg/dL (0.70-1.30) 03/25/19 05:35 Est GFR (MDRD) Af Amer > 60 (>60) 03/25/19 05:35 Est GFR (MDRD) Non-Af > 60 (>60) 03/25/19 05:35 Glucose 93 mg/dL (65-99) 03/25/19 05:35 POC Glucose (mg/dL) 93 mg/dL (65-99) 03/25/19 06:23 Lactic Acid 1.0 mmol/L (0.4-2.0) 03/24/19 17:02 Calcium 8.4 mg/dL (8.5-10.1) L 03/25/19 05:35 Corrected Calcium 9.6 mg/dL (8.5-10.1) 03/25/19 05:35 Total Bilirubin 0.50 mg/dL (0.2-1.0) 03/25/19 05:35 AST 15 Units/L (15-37) 03/25/19 05:35 ALT 19 Units/L (12-78) 03/25/19 05:35 Alkaline Phosphatase 69 Units/L (46-116) 03/25/19 05:35 Creatine Kinase 36 Units/L (39-308) L 03/24/19 12:34 CK-MB (CK-2) < 1.0 ng/mL (0-4.0) 03/24/19 12:34 CK/CKMB % Calc 2.8 % (<4) 03/24/19 12:34 Troponin I < 0.02 ng/mL (0-1.5) 03/24/19 12:34 B-Natriuretic Peptide 118 pg/mL (0-79) H 03/24/19 12:34 Total Protein 6.9 g/dL (6.4-8.2) 03/25/19 05:35 Albumin 2.5 g/dL (3.4-5.0) L 03/25/19 05:35 Globulin 4.4 g/dL (2.5-4.5) 03/25/19 05:35 Albumin/Globulin Ratio 0.6 Ratio (1.1-2.1) L 03/25/19 05:35 Specimen Type Random urine 03/24/19 21:32 Urine Color Yellow (YELLOW) 03/24/19 21:32 Urine Appearance Hazy (CLEAR) 03/24/19 21:32 Urine pH 8.0 (5.0 - 8.0) 03/24/19 21:32 Ur Specific [place] 1.005 (1.000-1.030) 03/24/19 21:32 Urine Protein 1+ (NEGATIVE) 03/24/19 21:32 Urine Glucose (UA) Negative (NEGATIVE) 03/24/19 21:32 Urine Ketones Negative (NEGATIVE) 03/24/19 21:32 Urine Occult Blood Negative (NEGATIVE) 03/24/19 21:32 Urine Nitrite Negative (NEGATIVE) 03/24/19 21:32 Urine Bilirubin Negative (NEGATIVE) 03/24/19 21:32 Urine Urobilinogen 1+ (NORMAL) 03/24/19 21:32 Ur Leukocyte Esterase 1+ (NEGATIVE) 03/24/19 21:32 Urine RBC None seen /HPF (0-3) 03/24/19 21:32 Urine WBC 0-2 /HPF (0-5) 03/24/19 21:32 Ur Squamous Epith Cells Negative /HPF (NEGATIVE) 03/24/19 21:32 Urine Bacteria Negative /HPF (NEGATIVE) 03/24/19 21:32 Urine Mucus Few /HPF (NEGATIVE) 03/24/19 21:32 Ur Culture Indicated? No/not indicated 03/24/19 21:32 Review of Systems Constitutional: Weakness Eyes: No Symptoms Reported ENT: Nose Discharge and Nose Congestion Respiratory: Cough, Shortness of Breath, SOB with Excertion and Wheezing; denies Hemoptysis Cardiovascular: Edema Gastrointestinal: No Symptoms Reported Genitourinary: No Symptoms Reported Musculoskeletal: No Symptoms Reported Neurological: Weakness Physical Exam Vital Signs: Temperature 97.7 F Pulse Rate [Left Brachial] 82 Pulse Rate 77 Respiratory Rate 18 Blood Pressure [Right Arm] 131/59 Blood Pressure [Left Arm] 142/64 Blood Pressure 137/58 O2 Sat by Pulse Oximetry 95 Oriented: Normal Nose: Discharge Respiratory: Rhonchi Throughout and Wheezes Throughout Cardiovascular: Normal Auscultation: Bowel Sounds: Normal Palpation: Normal Tenderness: Normal Skin: Other (chronic venous stasis in both legs with blisters, wrapped in dressing ) Psychiatric: Normal Mood Description: Calm Affect: Flat Speech Pattern: Clear and Appropriate Assessment/Plan (1) Lobar pneumonia, unspecified organism: Status: Acute Plan: continue Fortaz and azithromycin, follow sputum cultures Continue bronchodilators, oxygen prn to keep sats > 90% (2) COPD exacerbation: Status: Acute Plan: Will add prednisone, continue bronchodilators (3) Mass of upper lobe of left lung: Status: Acute Plan: CT-chest concerning for STEPHANIE mass, discussed findings with patient and the need for biopsy. Patient reports seeing Pulmonary in [place] but has not seen them in a while. Will need outpatient referral to Pulmonary on discharge. (4) Cerebrovascular accident, old: Status: Acute (5) Type 2 diabetes mellitus: Qualifiers: Diabetes mellitus complication detail: with peripheral angiopathy without gangrene Diabetes mellitus complication status: with circulatory complication Diabetes mellitus intermission coordinator insulin use: with intermission coordinator use Qualified Code(s): E11.51 - Type 2 diabetes mellitus with diabetic peripheral angiopathy without gangrene; Z79.4 - nursing home (current) use of insulin Status: Acute Plan: continue SSI, resume levemir (6) PAD (peripheral artery disease): Status: Acute (7) Tobacco use: Status: Acute (8) Hypertension: Qualifiers: Hypertension type: essential hypertension Qualified Code(s): I10 - Essential (primary) hypertension Status: Acute Plan: resume home medications
[2019-03-25] MEDS ORDERED: SOLIFENACIN 5 MG PO SCH (10:15)
[2019-03-25] MEDS ORDERED: LORATADINE 10 MG PO SCH (10:15)
[2019-03-25] MEDS ORDERED: PLAVIX ONE (11:11)
[2019-03-25] MEDS ORDERED: LOVENOX INJ 40 MG SYR SC ONE (11:11)
[2019-03-25] MEDS ORDERED: PREDNISONE TAB 20 MG PO ONE ×2 (11:12→11:26)
[2019-03-25] MEDS ORDERED: CLARITIN ONE (11:12)
[2019-03-25] MEDS: NEURONTIN CAP 100 MG PO SCH (11:18)
[2019-03-25] MEDS: PREDNISONE TAB 20 MG PO SCH (11:19)
[2019-03-25] MEDS: PLAVIX PO SCH (11:20)
[2019-03-25] MEDS: LOVENOX INJ 40 MG SYR SC SCH (11:20)
[2019-03-25] MEDS: PULMICORT NEB TX 0.5 MG NEB SCH ×2 (12:07→20:35)
[2019-03-25] MEDS: NS 1/2 1000 ML IV 1,000 ML IV SCH ×2 (13:35→22:25)
[2019-03-25] MEDS: HumuLIN R SUBCUT PRN ×2 (16:49→21:16)
[2019-03-25] MEDS ORDERED: NS 1/2 1000 ML IV 1,000 ML IV ONE (20:37)
[2019-03-25] MEDS: NIASPAN ER TAB 500 MG PO SCH (20:49)
[2019-03-25] MEDS: FLOMAX PO SCH (20:49)
[2019-03-25] MEDS: ZETIA TAB 10 MG PO SCH (20:50)
[2019-03-25] MEDS: LEVEMIR SC SCH (20:50)
[2019-03-25] MEDS: SNACK - Diabetic Appropriate PO SCH (20:53)
[2019-03-26] MEDS: DUONEB 0.5 MG/3 MG (3 mL) NEB SCH ×6 (00:58→20:34)
[2019-03-26] MEDS: FORTAZ or TAZICEF VIAL INJ 1 G in NS 100 ML IV + SPIKE MINIBAG* 100 ML IV SCH (03:33)
[2019-03-26 06:12] LABS: BASOPHILS % (AUTO) 0.4 % (0.2-1.0); EOSINOPHILS % (AUTO) 0.1 % (0.9-2.9); HEMATOCRIT 35.4 % (42.0-54.0); HEMOGLOBIN 11.6 g/dL (13.5-18.0); LYMPHOCYTES # (AUTO) 1.9 X10^3/uL (1.3-2.9); LYMPHOCYTES % (AUTO) 23.4 % (21.0-51.0); MEAN CORPUSCULAR HEMOGLOBIN 28.6 pg (27.0-34.0); MEAN CORPUSCULAR HGB CONC 32.7 g/dL (33.0-35.0); MEAN CORPUSCULAR VOLUME 87.6 fL (80.0-100.0); MEAN PLATELET VOLUME 6.8 fL (7.4-11.0); MONOCYTES % (AUTO) 12.1 % (0.0-13.0); NEUTROPHILS # (AUTO) 5.2 x10^3/uL (2.2-4.8); PLATELET COUNT 360 X10^3/uL (150.0-450.0); RED BLOOD COUNT 4.04 X10^6/uL (4.7-6.0); WHITE BLOOD COUNT 8.1 X10^3/uL (3.6-10.0)
[2019-03-26 06:16] LABS: BLOOD UREA NITROGEN 3 mg/dL (7-18); CALCIUM 8.4 mg/dL (8.5-10.1); CHLORIDE 105 mmol/L (98-107); COR NA(FOR HYPERGLY) 144 mmol/L (136-145); CREATININE 0.75 mg/dL (0.70-1.30); SODIUM 143 mmol/L (136-145); eGFR NON BLACK RACES > 60 (>60)
[2019-03-26] MEDS ORDERED: MICRO K EXTEN CAP 10 MEQ PO PRN (06:22)
[2019-03-26] MEDS ORDERED: POTASSIUM CHLORIDE LIQ 20 MEQ UDC PO PRN (06:22)
[2019-03-26] MEDS ORDERED: POTASSIUM CHL 40 MEQ/NS 0.45% 500 ML IV PRN (06:22)
[2019-03-26] MEDS ORDERED: K-DUR TAB 20 MEQ PO PRN (06:22)
[2019-03-26] MEDS ORDERED: POTASSIUM CHL 60 MEQ/NS 0.45% 500 ML IV PRN (06:22)
[2019-03-26] MEDS ORDERED: K-RIDER 10 MEQ/NS 100 ML 10 MEQ/100 ML BAG IV PRN (06:22)
[2019-03-26] MEDS: KLOR-CON PO PRN ×2 (06:27→11:41)
[2019-03-26] MEDS ORDERED: ROCEPHIN VIAL 1 GRAM ONE (09:11)
[2019-03-26] MEDS ORDERED: NS 100 ML IV + SPIKE MINIBAG* 100 ML IV ONE (09:11)
[2019-03-26] MEDS: ROCEPHIN VIAL 1 GRAM 1 G in NS 100 ML IV + SPIKE MINIBAG* 100 ML IV SCH ×2 (09:25→09:26)
[2019-03-26] MEDS: ROBITUSSIN DM PO SCH ×4 (09:27→20:17)
[2019-03-26] MEDS: VSL#3 PO SCH (09:27)
[2019-03-26] MEDS: CLARITIN PO SCH (09:28)
[2019-03-26] MEDS: NEURONTIN CAP 300 MG PO SCH ×2 (09:28→20:17)
[2019-03-26] MEDS: PREDNISONE TAB 20 MG PO SCH (09:28)
[2019-03-26] MEDS: FERROUS GLUCONATE PO SCH (09:28)
[2019-03-26] MEDS: TOPROL XL PO SCH (09:29)
[2019-03-26] MEDS: LASIX PO SCH (09:29)
[2019-03-26] MEDS: LIPITOR TAB 10 MG PO SCH (09:29)
[2019-03-26] MEDS: ASPIRIN EC 81 MG PO SCH (09:29)
[2019-03-26] MEDS: PLAVIX PO SCH (09:30)
[2019-03-26] MEDS: PROTONIX TAB 40 MG PO SCH (09:30)
[2019-03-26] MEDS: COZAAR PO SCH (09:30)
[2019-03-26] MEDS: LOVENOX INJ 40 MG SYR SC SCH (09:31)
[2019-03-26] MEDS: PULMICORT NEB TX 0.5 MG NEB SCH ×2 (09:36→20:34)
[2019-03-26] MEDS: ZITHROMAX TAB 250 MG PO SCH (10:11)
--- NOTE | 2019-03-26 10:24 | PCM.PROG ---
Progress Note Progress Note for Day of Date of Exam: 03/26/19 Subjective Subjective: Patient seen at bedside, reports feeling better. Denies any complaints. Sputum culture normal ramirez, will switch to Rocephin. Continue Azithromycin, bronchodilators and prednisone. DC IVF, replace K. Past Medical Family Social History Past Med/Fam/Surg Hx: No changes since H&P Allergies: Allergies No Known Drug Allergies Allergy (Verified 11/30/18 11:11) Review of Systems ROS: No change since H&P Vital Signs and I&O's Vital Signs: Temperature 97.5 F Pulse Rate [Left Brachial] 86 Pulse Rate 67 Respiratory Rate 18 Blood Pressure [Right Arm] 129/53 Blood Pressure [Left Arm] 152/64 Blood Pressure 137/58 O2 Sat by Pulse Oximetry 96 Intake and Output: Intake & Output 03/23/19 03/24/19 03/25/19 03/26/19 23:59 23:59 23:59 23:59 Intake Total 400 / 400 1200 / 1200 2160 / 2160 Output Total 1300 / 1300 325 / 325 Balance 400 / 400 -100 / -100 1835 / 1835 Physical Exam Oriented: Normal Nose: Normal Throat: Normal Respiratory: Wheezes (improved air entry, decreased wheezing ) Cardiovascular: Normal Auscultation: Bowel Sounds: Normal Tenderness: Normal Skin: Other (chronic venous stasis in both legs with blisters, wrapped in dressing ) Psychiatric: Normal Mood Description: Calm Affect: Flat Speech Pattern: Clear and Appropriate Laboratory and Diagnostics Result Diagrams: 03/26/19 05:55 03/26/19 05:55 Labs: 03/24/19 17:43 Sputum - Expectorated Sputum Sputum Culture - Preliminary 03/24/19 17:43 Sputum - Expectorated Sputum - Final 03/24/19 17:10 Blood Blood Culture - Preliminary 03/24/19 17:02 Blood Blood Culture - Preliminary Laboratory WBC 8.1 X10^3/uL (3.6-10.0) 03/26/19 05:55 RBC 4.04 X10^6/uL (4.7-6.0) L 03/26/19 05:55 Hgb 11.6 g/dL (13.5-18.0) L 03/26/19 05:55 Hct 35.4 % (42.0-54.0) L 03/26/19 05:55 MCV 87.6 fL (80.0-100.0) 03/26/19 05:55 MCH 28.6 pg (27.0-34.0) 03/26/19 05:55 MCHC 32.7 g/dL (33.0-35.0) L 03/26/19 05:55 RDW 16.0 % (11.6-16.5) 03/26/19 05:55 Plt Count 360 X10^3/uL (150.0-450.0) 03/26/19 05:55 MPV 6.8 fL (7.4-11.0) L 03/26/19 05:55 Neut % (Auto) 64.0 % (42.0-75.0) 03/26/19 05:55 Lymph % (Auto) 23.4 % (21.0-51.0) 03/26/19 05:55 [place] % (Auto) 12.1 % (0.0-13.0) 03/26/19 05:55 Eos % (Auto) 0.1 % (0.9-2.9) L 03/26/19 05:55 Baso % (Auto) 0.4 % (0.2-1.0) 03/26/19 05:55 Neut # (Auto) 5.2 x10^3/uL (2.2-4.8) H 03/26/19 05:55 Lymph # (Auto) 1.9 X10^3/uL (1.3-2.9) 03/26/19 05:55 [place] # (Auto) 1.0 x10^3/uL (0.3-0.8) H 03/26/19 05:55 Eos # (Auto) 0.0 x10^3/uL (0.0-0.2) 03/26/19 05:55 Baso # (Auto) 0.0 X10^3/uL (0.0-0.1) 03/26/19 05:55 Absolute Nucleated RBC 0.0 /100WBC 03/26/19 05:55 PT 14.2 SECONDS (11.8-14.3) 03/24/19 12:34 INR Target Range - 03/24/19 12:34 INR 1.14 (0.8-1.3) 03/24/19 12:34 APTT 30.2 SECONDS (22.9-36.5) 03/24/19 12:34 PTT Comment - 03/24/19 12:34 D-Dimer 376 ng/mL (0-400) 03/24/19 12:34 Sodium 143 mmol/L (136-145) 03/26/19 05:55 Corrected Sodium 144 mmol/L (136-145) 03/26/19 05:55 Potassium 3.3 mmol/L (3.5-5.1) L 03/26/19 05:55 Chloride 105 mmol/L (98-107) 03/26/19 05:55 Carbon Dioxide 28.0 mmol/L (21-32) 03/26/19 05:55 BUN 3 mg/dL (7-18) L 03/26/19 05:55 Creatinine 0.75 mg/dL (0.70-1.30) 03/26/19 05:55 Est GFR (MDRD) Af Amer > 60 (>60) 03/26/19 05:55 Est GFR (MDRD) Non-Af > 60 (>60) 03/26/19 05:55 Glucose 133 mg/dL (65-99) H 03/26/19 05:55 POC Glucose (mg/dL) 139 mg/dL (65-99) H 03/26/19 05:26 Lactic Acid 1.0 mmol/L (0.4-2.0) 03/24/19 17:02 Calcium 8.4 mg/dL (8.5-10.1) L 03/26/19 05:55 Corrected Calcium 9.6 mg/dL (8.5-10.1) 03/25/19 05:35 Total Bilirubin 0.50 mg/dL (0.2-1.0) 03/25/19 05:35 AST 15 Units/L (15-37) 03/25/19 05:35 ALT 19 Units/L (12-78) 03/25/19 05:35 Alkaline Phosphatase 69 Units/L (46-116) 03/25/19 05:35 Creatine Kinase 36 Units/L (39-308) L 03/24/19 12:34 CK-MB (CK-2) < 1.0 ng/mL (0-4.0) 03/24/19 12:34 CK/CKMB % Calc 2.8 % (<4) 03/24/19 12:34 Troponin I < 0.02 ng/mL (0-1.5) 03/24/19 12:34 B-Natriuretic Peptide 118 pg/mL (0-79) H 03/24/19 12:34 Total Protein 6.9 g/dL (6.4-8.2) 03/25/19 05:35 Albumin 2.5 g/dL (3.4-5.0) L 03/25/19 05:35 Globulin 4.4 g/dL (2.5-4.5) 03/25/19 05:35 Albumin/Globulin Ratio 0.6 Ratio (1.1-2.1) L 03/25/19 05:35 Specimen Type Random urine 03/24/19 21:32 Urine Color Yellow (YELLOW) 03/24/19 21:32 Urine Appearance Hazy (CLEAR) 03/24/19 21:32 Urine pH 8.0 (5.0 - 8.0) 03/24/19 21:32 Ur Specific [place] 1.005 (1.000-1.030) 03/24/19 21:32 Urine Protein 1+ (NEGATIVE) 03/24/19 21:32 Urine Glucose (UA) Negative (NEGATIVE) 03/24/19 21:32 Urine Ketones Negative (NEGATIVE) 03/24/19 21:32 Urine Occult Blood Negative (NEGATIVE) 03/24/19 21:32 Urine Nitrite Negative (NEGATIVE) 03/24/19 21:32 Urine Bilirubin Negative (NEGATIVE) 03/24/19 21:32 Urine Urobilinogen 1+ (NORMAL) 03/24/19 21:32 Ur Leukocyte Esterase 1+ (NEGATIVE) 03/24/19 21:32 Urine RBC None seen /HPF (0-3) 03/24/19 21:32 Urine WBC 0-2 /HPF (0-5) 03/24/19 21:32 Ur Squamous Epith Cells Negative /HPF (NEGATIVE) 03/24/19 21:32 Urine Bacteria Negative /HPF (NEGATIVE) 03/24/19 21:32 Urine Mucus Few /HPF (NEGATIVE) 03/24/19 21:32 Ur Culture Indicated? No/not indicated 03/24/19 21:32 Plan (1) Lobar pneumonia, unspecified organism: Status: Acute Plan: sputum: normal ramirez, DC fortaz, switch to Rocephin, continue Azithromycin and prednisone Continue bronchodilators, oxygen prn to keep sats > 90% (2) COPD exacerbation: Status: Acute Plan: continue prednisone and bronchodilators (3) Mass of upper lobe of left lung: Status: Acute Plan: CT-chest concerning for STEPHANIE mass, discussed findings with patient and the need for biopsy. Patient reports seeing Pulmonary in [place] but has not seen them in a while. Will need outpatient referral to Pulmonary on discharge. (4) Hypokalemia: Status: Acute Plan: replace as per protocol (5) Cerebrovascular accident, old: Status: Acute (6) Type 2 diabetes mellitus: Status: Acute Qualifiers: Diabetes mellitus roasterman insulin use: with roasterman use Diabetes mellitus complication status: with circulatory complication Diabetes mellitus complication detail: with peripheral angiopathy without gangrene Qualified Code(s): E11.51 - Type 2 diabetes mellitus with diabetic peripheral angiopathy without gangrene; Z79.4 - superintendent terminal (current) use of insulin Plan: continue SSI, resume levemir (7) PAD (peripheral artery disease): Status: Acute (8) Tobacco use: Status: Acute (9) Hypertension: Status: Acute Qualifiers: Hypertension type: essential hypertension Qualified Code(s): I10 - Essential (primary) hypertension Plan: resume home medications
[2019-03-26 10:37] LABS: MAGNESIUM 1.9 mg/dL (1.7-2.9)
[2019-03-26] MEDS: NEURONTIN CAP 100 MG PO SCH (11:42)
[2019-03-26] MEDS: MAGNESIUM SULFATE 1 GRAM/100 mL PREMIX 1 GM/100 ML BAG IV PRN ×2 (11:42→13:02)
[2019-03-26] MEDS: NIASPAN ER TAB 500 MG PO SCH (20:17)
[2019-03-26] MEDS: FLOMAX PO SCH (20:18)
[2019-03-26] MEDS: SNACK - Diabetic Appropriate PO SCH (20:18)
[2019-03-26] MEDS: ZETIA TAB 10 MG PO SCH (20:18)
[2019-03-26] MEDS: LEVEMIR SC SCH (20:52)
[2019-03-26] MEDS: HumuLIN R SUBCUT PRN (20:53)
[2019-03-26] MEDS ORDERED: NS 500 ML IV 500 ML IV ONE (23:10)
[2019-03-27] MEDS: DUONEB 0.5 MG/3 MG (3 mL) NEB SCH ×3 (01:28→09:39)
[2019-03-27 06:25] LABS: BASOPHILS % (AUTO) 0.6 % (0.2-1.0); EOSINOPHILS % (AUTO) 0.3 % (0.9-2.9); HEMATOCRIT 34.4 % (42.0-54.0); HEMOGLOBIN 11.5 g/dL (13.5-18.0); LYMPHOCYTES % (AUTO) 25.8 % (21.0-51.0); MEAN CORPUSCULAR HEMOGLOBIN 28.8 pg (27.0-34.0); MEAN CORPUSCULAR HGB CONC 33.4 g/dL (33.0-35.0); MEAN CORPUSCULAR VOLUME 86.3 fL (80.0-100.0); MEAN PLATELET VOLUME 6.6 fL (7.4-11.0); MONOCYTES # (AUTO) 0.9 x10^3/uL (0.3-0.8); MONOCYTES % (AUTO) 11.2 % (0.0-13.0); NEUTROPHILS # (AUTO) 4.9 x10^3/uL (2.2-4.8); NEUTROPHILS % (AUTO) 62.1 % (42.0-75.0); PLATELET COUNT 379 X10^3/uL (150.0-450.0); RED BLOOD COUNT 3.99 X10^6/uL (4.7-6.0); RED CELL DISTRIBUTION WIDTH 15.7 % (11.6-16.5); WHITE BLOOD COUNT 7.9 X10^3/uL (3.6-10.0)
[2019-03-27 06:34] LABS: BLOOD UREA NITROGEN 3 mg/dL (7-18); CALCIUM 8.6 mg/dL (8.5-10.1); CARBON DIOXIDE 28.5 mmol/L (21-32); CHLORIDE 106 mmol/L (98-107); COR NA(FOR HYPERGLY) 143 mmol/L (136-145); CREATININE 0.69 mg/dL (0.70-1.30); MAGNESIUM 2.4 mg/dL (1.7-2.9); SODIUM 143 mmol/L (136-145); eGFR NON BLACK RACES > 60 (>60)
[2019-03-27] MEDS: LOVENOX INJ 40 MG SYR SC SCH (08:58)
[2019-03-27] MEDS: PLAVIX PO SCH (08:59)
[2019-03-27] MEDS: NEURONTIN CAP 300 MG PO SCH (09:00)
[2019-03-27] MEDS: PROTONIX TAB 40 MG PO SCH (09:00)
[2019-03-27] MEDS: ASPIRIN EC 81 MG PO SCH (09:00)
[2019-03-27] MEDS: ROBITUSSIN DM PO SCH (09:00)
[2019-03-27] MEDS: COZAAR PO SCH (09:00)
[2019-03-27] MEDS: VSL#3 PO SCH (09:01)
[2019-03-27] MEDS: PREDNISONE TAB 20 MG PO SCH (09:01)
[2019-03-27] MEDS: FERROUS GLUCONATE PO SCH (09:01)
[2019-03-27] MEDS: ZITHROMAX TAB 250 MG PO SCH (09:01)
[2019-03-27] MEDS: CLARITIN PO SCH (09:01)
[2019-03-27] MEDS: LIPITOR TAB 10 MG PO SCH (09:01)
[2019-03-27] MEDS: LASIX PO SCH (09:02)
[2019-03-27] MEDS: TOPROL XL PO SCH (09:02)
[2019-03-27] MEDS: ROCEPHIN VIAL 1 GRAM 1 G in NS 100 ML IV + SPIKE MINIBAG* 100 ML IV SCH (09:02)
[2019-03-27] MEDS: PULMICORT NEB TX 0.5 MG NEB SCH (09:39)
[2019-03-27 12:10] VITALS: BP 126/60
[2019-03-27] MEDS: NEURONTIN CAP 100 MG PO SCH (12:11)
--- NOTE | 2019-03-28 10:51 | W.DIS.FURT ---
Summary of Discharge Discharge Summary of Date Date of Exam: 03/27/19 Admission Date Date of Admission: 03/24/19 Admission Diagnosis Hospital Course: Mr. Barraza is a 68y/o male with multiple medical problems who was admitted due to worsening shortness of breath. He was noted to have right sided pneumonia and also noted to have a left upper lobe mass that was not seen in prev imaging. CT- chest was done and it showed a 2.9 cm mass concerning for malignancy. Patient was treated for pneumonia with IV antibiotics and prednisone for COPD exacerbation. Sputum cultures were normal. He recieved aggressive pulmonary toilet with duonebs and pulmicort. Patient remained on room air with improvement in his cough and breathing. He was stable for discharge with outpatient pulmonary follow up. Patient was discharged on oral antibiotics and prednisone. He will follow up with PCP in one week. Vital Signs: Vital Signs (72 hours) 03/25/19 12:00 03/25/19 12:07 03/25/19 16:00 Temperature 98.5 F 97.9 F Pulse Rate 67 Pulse Rate [Left Brachial] 70 79 Respiratory Rate 18 20 Blood Pressure [Left Arm] 123/58 123/55 Blood Pressure [Right Arm] O2 Sat by Pulse Oximetry 99 97 94 L 03/25/19 17:02 03/25/19 19:53 03/25/19 20:35 Temperature 98.0 F Pulse Rate 75 78 Pulse Rate [Left Brachial] 81 Respiratory Rate 24 Blood Pressure [Left Arm] 143/70 Blood Pressure [Right Arm] O2 Sat by Pulse Oximetry 95 98 96 03/25/19 23:37 03/26/19 00:58 03/26/19 03:56 Temperature 97.9 F 97.7 F Pulse Rate 82 Pulse Rate [Left Brachial] 77 90 Respiratory Rate 18 22 Blood Pressure [Left Arm] 128/51 152/64 Blood Pressure [Right Arm] O2 Sat by Pulse Oximetry 96 94 L 98 03/26/19 05:25 03/26/19 08:00 03/26/19 09:36 Temperature 97.5 F L Pulse Rate 87 67 Pulse Rate [Left Brachial] 86 Respiratory Rate 18 Blood Pressure [Left Arm] Blood Pressure [Right Arm] 129/53 O2 Sat by Pulse Oximetry 96 98 96 03/26/19 12:00 03/26/19 12:12 03/26/19 16:00 Temperature 98.4 F 98.1 F Pulse Rate 71 Pulse Rate [Left Brachial] 79 84 Respiratory Rate 20 20 Blood Pressure [Left Arm] Blood Pressure [Right Arm] 130/50 121/54 O2 Sat by Pulse Oximetry 95 98 97 03/26/19 16:59 03/26/19 19:54 03/26/19 20:34 Temperature 98.5 F Pulse Rate 77 82 Pulse Rate [Left Brachial] 89 Respiratory Rate 22 Blood Pressure [Left Arm] Blood Pressure [Right Arm] 136/59 O2 Sat by Pulse Oximetry 97 98 98 03/27/19 00:00 03/27/19 01:28 03/27/19 04:00 Temperature 98.2 F 98.5 F Pulse Rate 77 Pulse Rate [Left Brachial] 83 81 Respiratory Rate 18 18 Blood Pressure [Left Arm] Blood Pressure [Right Arm] 119/56 138/45 O2 Sat by Pulse Oximetry 98 96 97 03/27/19 08:00 03/27/19 09:39 03/27/19 12:00 Temperature 97.9 F 98.5 F Pulse Rate 86 Pulse Rate [Left Brachial] 75 87 Respiratory Rate 20 20 Blood Pressure [Left Arm] Blood Pressure [Right Arm] 115/59 126/60 O2 Sat by Pulse Oximetry 94 L 97 96 Labs: Laboratory Last Values WBC 7.9 X10^3/uL (3.6-10.0) 03/27/19 05:20 RBC 3.99 X10^6/uL (4.7-6.0) L 03/27/19 05:20 Hgb 11.5 g/dL (13.5-18.0) L 03/27/19 05:20 Hct 34.4 % (42.0-54.0) L 03/27/19 05:20 MCV 86.3 fL (80.0-100.0) 03/27/19 05:20 MCH 28.8 pg (27.0-34.0) 03/27/19 05:20 MCHC 33.4 g/dL (33.0-35.0) 03/27/19 05:20 RDW 15.7 % (11.6-16.5) 03/27/19 05:20 Plt Count 379 X10^3/uL (150.0-450.0) 03/27/19 05:20 MPV 6.6 fL (7.4-11.0) L 03/27/19 05:20 Neut % (Auto) 62.1 % (42.0-75.0) 03/27/19 05:20 Lymph % (Auto) 25.8 % (21.0-51.0) 03/27/19 05:20 [place] % (Auto) 11.2 % (0.0-13.0) 03/27/19 05:20 Eos % (Auto) 0.3 % (0.9-2.9) L 03/27/19 05:20 Baso % (Auto) 0.6 % (0.2-1.0) 03/27/19 05:20 Neut # (Auto) 4.9 x10^3/uL (2.2-4.8) H 03/27/19 05:20 Lymph # (Auto) 2.0 X10^3/uL (1.3-2.9) 03/27/19 05:20 [place] # (Auto) 0.9 x10^3/uL (0.3-0.8) H 03/27/19 05:20 Eos # (Auto) 0.0 x10^3/uL (0.0-0.2) 03/27/19 05:20 Baso # (Auto) 0.0 X10^3/uL (0.0-0.1) 03/27/19 05:20 Absolute Nucleated RBC 0.0 /100WBC 03/27/19 05:20 PT 14.2 SECONDS (11.8-14.3) 03/24/19 12:34 INR Target Range - 03/24/19 12:34 INR 1.14 (0.8-1.3) 03/24/19 12:34 APTT 30.2 SECONDS (22.9-36.5) 03/24/19 12:34 PTT Comment - 03/24/19 12:34 D-Dimer 376 ng/mL (0-400) 03/24/19 12:34 Sodium 143 mmol/L (136-145) 03/27/19 05:20 Corrected Sodium 143 mmol/L (136-145) 03/27/19 05:20 Potassium 3.7 mmol/L (3.5-5.1) 03/27/19 05:20 Chloride 106 mmol/L (98-107) 03/27/19 05:20 Carbon Dioxide 28.5 mmol/L (21-32) 03/27/19 05:20 BUN 3 mg/dL (7-18) L 03/27/19 05:20 Creatinine 0.69 mg/dL (0.70-1.30) L 03/27/19 05:20 Est GFR (MDRD) Af Amer > 60 (>60) 03/27/19 05:20 Est GFR (MDRD) Non-Af > 60 (>60) 03/27/19 05:20 Glucose 113 mg/dL (65-99) H 03/27/19 05:20 POC Glucose (mg/dL) 175 mg/dL (65-99) H 03/27/19 11:58 Lactic Acid 1.0 mmol/L (0.4-2.0) 03/24/19 17:02 Calcium 8.6 mg/dL (8.5-10.1) 03/27/19 05:20 Corrected Calcium 9.6 mg/dL (8.5-10.1) 03/25/19 05:35 Magnesium 2.4 mg/dL (1.7-2.9) 03/27/19 05:20 Total Bilirubin 0.50 mg/dL (0.2-1.0) 03/25/19 05:35 AST 15 Units/L (15-37) 03/25/19 05:35 ALT 19 Units/L (12-78) 03/25/19 05:35 Alkaline Phosphatase 69 Units/L (46-116) 03/25/19 05:35 Creatine Kinase 36 Units/L (39-308) L 03/24/19 12:34 CK-MB (CK-2) < 1.0 ng/mL (0-4.0) 03/24/19 12:34 CK/CKMB % Calc 2.8 % (<4) 03/24/19 12:34 Troponin I < 0.02 ng/mL (0-1.5) 03/24/19 12:34 B-Natriuretic Peptide 118 pg/mL (0-79) H 03/24/19 12:34 Total Protein 6.9 g/dL (6.4-8.2) 03/25/19 05:35 Albumin 2.5 g/dL (3.4-5.0) L 03/25/19 05:35 Globulin 4.4 g/dL (2.5-4.5) 03/25/19 05:35 Albumin/Globulin Ratio 0.6 Ratio (1.1-2.1) L 03/25/19 05:35 Specimen Type Random urine 03/24/19 21:32 Urine Color Yellow (YELLOW) 03/24/19 21:32 Urine Appearance Hazy (CLEAR) 03/24/19 21:32 Urine pH 8.0 (5.0 - 8.0) 03/24/19 21:32 Ur Specific [place] 1.005 (1.000-1.030) 03/24/19 21:32 Urine Protein 1+ (NEGATIVE) 03/24/19 21:32 Urine Glucose (UA) Negative (NEGATIVE) 03/24/19 21:32 Urine Ketones Negative (NEGATIVE) 03/24/19 21:32 Urine Occult Blood Negative (NEGATIVE) 03/24/19 21:32 Urine Nitrite Negative (NEGATIVE) 03/24/19 21:32 Urine Bilirubin Negative (NEGATIVE) 03/24/19 21:32 Urine Urobilinogen 1+ (NORMAL) 03/24/19 21:32 Ur Leukocyte Esterase 1+ (NEGATIVE) 03/24/19 21:32 Urine RBC None seen /HPF (0-3) 03/24/19 21:32 Urine WBC 0-2 /HPF (0-5) 03/24/19 21:32 Ur Squamous Epith Cells Negative /HPF (NEGATIVE) 03/24/19 21:32 Urine Bacteria Negative /HPF (NEGATIVE) 03/24/19 21:32 Urine Mucus Few /HPF (NEGATIVE) 03/24/19 21:32 Ur Culture Indicated? No/not indicated 03/24/19 21:32 Reason For Visit: STEPHANIE LUNG MASS ,RLL PNEUMONIA,DM Discharge Date Discharge Date: 03/27/19 Discharge Diagnosis All Active Problems (Updated 03/28/19 @ 11:01 by Brooke Villalta) Hypokalemia (Acute) Hypertension (Acute) COPD exacerbation (Acute) Tobacco use (Chronic) PAD (peripheral artery disease) (Chronic) Type 2 diabetes mellitus (Chronic) CVA (cerebral vascular accident) (Chronic) Weakness of left lower extremity (Chronic) Shoulder joint replacement status (Chronic) Ankle abrasion (Chronic) Cellulitis (Chronic) Lobar pneumonia, unspecified organism (Acute) Mass of upper lobe of left lung (Acute) Cerebrovascular accident, old (Chronic) Plan of Treatment: Continue with present treatment and follow up plan. Pt is to keep follow up appointment as instructed and take medications as ordered. Discharge Medications Discharge Medications: No Known Drug Allergies Allergy (Verified 11/30/18 11:11) CONTINUE taking the following medications Levemir FlexTouch U-100 Insuln 5 unit SUBCUT QHS 03/24/19 [History] aspirin [Aspirin Low Dose] 81 mg PO DAILY 03/24/19 [History] atorvastatin 10 mg PO DAILY 03/24/19 [History] docusate sodium [Colace] 100 - 200 mg PO QHS PRN 03/24/19 [History] ezetimibe 10 mg PO QHS 03/24/19 [History] ferrous sulfate [Iron (ferrous sulfate)] 325 mg PO DAILY 03/24/19 [History] gabapentin 100 mg PO QNOON 03/24/19 [History] gabapentin 300 mg PO BID 03/24/19 [History] glimepiride 2 mg PO QAM 03/24/19 [History] levocetirizine 5 mg PO DAILY 03/24/19 [History] loratadine 10 mg PO DAILY 03/24/19 [History] losartan 25 mg PO DAILY 03/24/19 [History] metformin 850 mg PO TID 03/24/19 [History] metoprolol succinate 25 mg PO DAILY 03/24/19 [History] niacin 1,000 mg PO QHS 03/24/19 [History] pantoprazole [Protonix] 40 mg PO QAM 03/24/19 [History] potassium chloride 10 meq PO DAILY 03/24/19 [History] ranitidine HCl 150 mg PO QHS 03/24/19 [History] solifenacin 5 mg PO DAILY 03/24/19 [History] tamsulosin 0.4 mg PO QHS 03/24/19 [History] tramadol 100 mg PO TID PRN 03/24/19 [History] New Prescriptions clopidogrel 75 mg PO DAILY 30 Days #30 tab 03/27/19 [Rx] furosemide 20 mg PO DAILY #0 tab 03/27/19 [Rx] levofloxacin [Levaquin] 750 mg PO DAILY 5 Days #5 tab 12/30/19 [Rx] prednisone 40 mg PO DAILY 3 Days #6 tab 03/27/19 [Rx] Follow up and Referral Follow Up: 1 Week (PCP) Discharge Disposition Discharge Disposition: Home with home health.
== END 2019-03-27 12:05 | disposition home health service (06) | DRG 194 ==
LOC: ER 12:02 → MED/SURG 17:33
PROVIDERS: ADMIT Internal Medicine; ATTEND Internal Medicine
DX: I10 Essential (primary) hypertension; Z79.4 Long term (current) use of insulin; I25.10 Atherosclerotic heart disease of native coronary artery without angina pectoris; E87.6 Hypokalemia; E78.2 Mixed hyperlipidemia; J44.1 Chronic obstructive pulmonary disease with (acute) exacerbation; Z86.73 Personal history of transient ischemic attack (TIA), and cerebral infarction without residual deficits; R91.8 Other nonspecific abnormal finding of lung field; J13 Pneumonia due to Streptococcus pneumoniae; Z72.0 Tobacco use; R06.02 Shortness of breath; E11.51 Type 2 diabetes mellitus with diabetic peripheral angiopathy without gangrene; I73.9 Peripheral vascular disease, unspecified
CPT/HCPCS: 36415; 71010; 71045; 71260; 80048; 80053; 81001; 82550; 82553; 83605; 83735; 83880; 84132; 84484; 85025; 85378; 85610; 85730; 87040; 87070; 87077; 87186; 87205; 94640; 94760; 96365; 99284; A4222; J0456; J0696; J0713; J1650; J1815; J3475; J7040; J7050; J7512; J7620; J7626

== ENCOUNTER 2019-05-04 10:25 | Inpatient (IN) ==
[2019-05-04 10:53] VITALS: BMI 38.7
--- NOTE | 2019-05-04 11:07 | DR.WEAKNES ---
HPI Time Seen Time Seen by Provider: 05/04/19 11:07 Primary Care Physician Primary Care Physician: DR. MOREIRA Complaints Chief Complaint:: [facility] WAS DISPATCHED TO PATIENT'S RESIDENCE. UPON ARRIVAL, PT WAS FOUND IN THE FLOOR COVERED IN URINE. EMS STATES PATIENT REFUSED TO COME TO THE ED AND THEY ASSISTED TO HELP HIM UP AND PATIENT COULDN'T STAND. PATIENT STATES HE COULDN'T WALK. PATIENT IS C/O LEFT SHOULDER PAIN. Source History Provided: Patient and EMS Mode of Arrival Mode of Arrival: EMS Timing Onset of Chief Complaint: 05/03/19 PMH PMH Past Medical History: Yes Past Medical History: Arthritis, Cirrhosis, CHF, COPD, Coronary Artery Disease, CVA, Diabetes, Dyslipidemia, GERD and Hypertension Past Medical History Comment: CHRONIC CONSTIPATION SEBORRHEIC DERMATITIS SHINGLES Past Surgical History: Yes Surgical History: Unknown Family History History of Family Medical Conditions: Yes Family Medical History: Diabetes Mellitus, Coronary Artery Disease and Heart Failure Social History Type of Tobacco Use: Cigarettes Does any household member use tobacco: No Alcohol Use: None Do you use any recreational Drugs:: No Lives With: Alone Lives Where: Home infectious screening Have you traveled outside the country in the last 6 months?: No Isolation: Standard ROS Review of Systems Constitutional: No Symptoms Reported and See HPI Eyes: No Symptoms Reported and See HPI ENTM: No Symptoms Reported and See HPI Respiratoy: No Symptoms Reported and See HPI Cardiovascular: No Symptoms Reported and See HPI Gastrointestinal/Abdominal: No Symptoms Reported and See HPI Genitourinary: No Symptoms Reported and See HPI Neurological: No Symptoms Reported and See HPI Musculoskeletal: No Symptoms Reported and See HPI Integumentary: No Symptoms Reported and See HPI Hematologic/Lymphatic: No Symptoms Reported and See HPI Endocrine: No Symptoms Reported and See HPI Psychiatric: No Symptoms Reported and See HPI All Other Systems: Reviewed and Negative PE Vital Signs Vitals: Temperature 98.6 F Pulse Rate 89 Respiratory Rate 16 Blood Pressure [Right Arm] 126/60 Blood Pressure 139/62 O2 Sat by Pulse Oximetry 96 General Limitations: Altered Mental Status General Appearance: Alert and In Distress Head Head Exam: Atraumatic and Normocephalic Head Exam Physical: Other (NONE NOTED.) Eyes Eye exam: PERRL; negative Scleral Icterus and Conjunctival Injection Eyelids: Normal Inspection: Bilateral Pupils: Regular, Round: Bilateral and Reactive: Bilateral ENT ENT Exam: Normal Oropharynx, Normal External Ear Exam and TM's Normal Bilaterally Mouth Exam: negative Lip Swelling and Tongue Swelling Throat Exam: negative Tonsillar Erythema, Tonsillomegaly and Tonsillar Exudate Neck Neck Exam: Normal Inspection and Trachea Midline; negative Tenderness and Lymphadenopathy Chest Chest Inspection: Symmetric Chest Wall Rise; negative Tenderness Respiratory Respiratory Exam: Respiratory Distress; negative Accessory Muscle Use and Chest Wall Tenderness Respiratory Exam: Bilateral: Rhonchi and Lower: Rhonchi Cardiovascular Cardiovascular Exam: Regular Rate, Normal Rhythm and Normal Heart Sounds Abdominal Exam Abdominal Exam: Normal Bowel Sounds and Soft; negative Tenderness Extremities Extremities Exam: Normal Inspection and Normal Capillary Refill; negative Tenderness, Edema and Calf Tenderness Back Back Exam: Normal Inspection; negative (R) CVA Tenderness and (L) CVA Tenderness Neurologic Neurological Exam: Alert; negative Motor Sensory Deficit Patient Oriented To: Person Cranial Nerve Exam: Gag reflex (XI): Normal MDM Differential Diagnosis Differential Diagnosis: CVA, Electrolyte Disorder, Hypoglycemia, Mass Lesion, TIA and Other (DE, PNEUMONIA, DEHYDRATION, UTI.) COURSE Treatment Treatment: SEE ORDERS NS 125CC/HR. ROCEPH 1GM IVPB. EFFERVESENCE POTASSIUM 50MEQ PO. Consultation Consultation Comments: DISCUSSED PATIENT WITH DR. ATKINSON, SHE WILL ADMIT PATIENT. Education/Counseling Education/Counseling: Patient Educated On: Diagnosis ROR Labs Reviewed Laboratory Results Reviewed?: Yes Result Diagrams: 05/04/19 12:20 05/04/19 12:20 Laboratory: WBC 11.3 X10^3/uL (3.6-10.0) H 05/04/19 12:20 RBC 4.64 X10^6/uL (4.7-6.0) L 05/04/19 12:20 Hgb 13.3 g/dL (13.5-18.0) L 05/04/19 12:20 Hct 40.0 % (42.0-54.0) L 05/04/19 12:20 MCV 86.2 fL (80.0-100.0) 05/04/19 12:20 MCH 28.7 pg (27.0-34.0) 05/04/19 12:20 MCHC 33.3 g/dL (33.0-35.0) 05/04/19 12:20 RDW 16.9 % (11.6-16.5) H 05/04/19 12:20 Plt Count 279 X10^3/uL (150.0-450.0) 05/04/19 12:20 MPV 6.5 fL (7.4-11.0) L 05/04/19 12:20 Neut % (Auto) 71.1 % (42.0-75.0) 05/04/19 12:20 Lymph % (Auto) 14.3 % (21.0-51.0) L 05/04/19 12:20 [place] % (Auto) 12.5 % (0.0-13.0) 05/04/19 12:20 Eos % (Auto) 1.2 % (0.9-2.9) 05/04/19 12:20 Baso % (Auto) 0.9 % (0.2-1.0) 05/04/19 12:20 Neut # (Auto) 8.1 x10^3/uL (2.2-4.8) H 05/04/19 12:20 Lymph # (Auto) 1.6 X10^3/uL (1.3-2.9) 05/04/19 12:20 [place] # (Auto) 1.4 x10^3/uL (0.3-0.8) H 05/04/19 12:20 Eos # (Auto) 0.1 x10^3/uL (0.0-0.2) 05/04/19 12:20 Baso # (Auto) 0.1 X10^3/uL (0.0-0.1) 05/04/19 12:20 Absolute Nucleated RBC 0.1 /100WBC 05/04/19 12:20 Sodium 137 mmol/L (136-145) 05/04/19 12:20 Corrected Sodium TNP 05/04/19 12:20 Potassium 3.1 mmol/L (3.5-5.1) L 05/04/19 12:20 Chloride 99 mmol/L (98-107) 05/04/19 12:20 Carbon Dioxide 34.2 mmol/L (21-32) H 05/04/19 12:20 BUN 8 mg/dL (7-18) 05/04/19 12:20 Creatinine 0.82 mg/dL (0.70-1.30) 05/04/19 12:20 Est GFR (MDRD) Af Amer > 60 (>60) 05/04/19 12:20 Est GFR (MDRD) Non-Af > 60 (>60) 05/04/19 12:20 Glucose 107 mg/dL (65-99) H 05/04/19 12:20 Lactic Acid 1.4 mmol/L (0.4-2.0) 05/04/19 14:38 Calcium 8.6 mg/dL (8.5-10.1) 05/04/19 12:20 Corrected Calcium 9.6 mg/dL (8.5-10.1) 05/04/19 12:20 Total Bilirubin 0.80 mg/dL (0.2-1.0) 05/04/19 12:20 AST 43 Units/L (15-37) H 05/04/19 12:20 ALT 32 Units/L (12-78) 05/04/19 12:20 Alkaline Phosphatase 68 Units/L (46-116) 05/04/19 12:20 Creatine Kinase 722 Units/L (39-308) H 05/04/19 12:20 CK-MB (CK-2) 2.5 ng/mL (0-4.0) 05/04/19 12:20 CK/CKMB % Calc 0.4 % (<4) 05/04/19 12:20 Troponin I < 0.02 ng/mL (0-1.5) 05/04/19 12:20 Total Protein 7.3 g/dL (6.4-8.2) 05/04/19 12:20 Albumin 2.7 g/dL (3.4-5.0) L 05/04/19 12:20 Globulin 4.6 g/dL (2.5-4.5) H 05/04/19 12:20 Albumin/Globulin Ratio 0.6 Ratio (1.1-2.1) L 05/04/19 12:20 Specimen Type Catherized urine 05/04/19 12:13 Urine Color Dark yellow (YELLOW) 05/04/19 12:13 Urine Appearance Hazy (CLEAR) 05/04/19 12:13 Urine pH 7.0 (5.0 - 8.0) 05/04/19 12:13 Ur Specific [place] 1.005 (1.000-1.030) 05/04/19 12:13 Urine Protein 1+ (NEGATIVE) 05/04/19 12:13 Urine Glucose (UA) Negative (NEGATIVE) 05/04/19 12:13 Urine Ketones 1+ (NEGATIVE) 05/04/19 12:13 Urine Occult Blood Negative (NEGATIVE) 05/04/19 12:13 Urine Nitrite Negative (NEGATIVE) 05/04/19 12:13 Urine Bilirubin Negative (NEGATIVE) 05/04/19 12:13 Urine Urobilinogen 3+ (NORMAL) 05/04/19 12:13 Ur Leukocyte Esterase 1+ (NEGATIVE) 05/04/19 12:13 Urine RBC 0-2 /HPF (0-3) 05/04/19 12:13 Urine WBC 3-5 /HPF (0-5) 05/04/19 12:13 Ur Squamous Epith Cells Few /HPF (NEGATIVE) 05/04/19 12:13 Urine Bacteria Trace /HPF (NEGATIVE) 05/04/19 12:13 Urine Mucus Few /HPF (NEGATIVE) 05/04/19 12:13 Ur Culture Indicated? No/not indicated 05/04/19 12:13 Other Results Comments: IMPRESSION Persistent right basal infiltrate consistent with pneumonia or atelectasis. Stable appearance of left midlung mass which has been previously described on chest CT of 03/24/2019, and is suspicious for carcinoma. XRAY XRAY Findings: REPORT NOTED AND DISCUSSED WITH PATIENT. EKG Rate: 90 [place]: Normal Rhythm: NSR and PACs Block: None Hypertrophy: None ST: Ant and Lat (T WAVES ABNORMALITY.) Opioid Opioid Risk Tool Age (Ronaldo box if 16-45): No History of Preadolescent Sexual Abuse: No Total: 0 Total Score Risk Category: Low Risk Copyright: Dominic THOMPSON predicting aberrant behaviors Diagnosis Discharge Problem: Hypokalemia, Acute dehydration AMS (altered mental status) Qualifiers: Altered mental status type: transient alteration of awareness Qualified Code(s): R40.4 - Transient alteration of awareness Pneumonia Qualifiers: Pneumonia type: due to unspecified organism Laterality: right Lung location: lower lobe of lung Qualified Code(s): J18.9 - Pneumonia, unspecified organism Rhabdomyolysis Qualifiers: Rhabdomyolysis type: non-traumatic Qualified Code(s): M62.82 - Rhabdomyolysis Instructions Forms: Excuse From Work Patient Portal
[2019-05-04] MEDS ORDERED: NS 1000 ML 1,000 ML ONE (11:18)
[2019-05-04] MEDS: NS 1000 ML 1,000 ML IV SCH ×2 (12:16→21:00)
[2019-05-04 12:18] LABS: BILIRUBIN,URINE NEGATIVE (NEGATIVE); BLOOD/HEMOGLOBIN,URINE NEGATIVE (NEGATIVE); GLUCOSE, URINE NEGATIVE (NEGATIVE); KETONES,URINE 1+ (NEGATIVE); LEUKOCYTE ESTERASE ,URINE 1+ (NEGATIVE); NITRITES,URINE NEGATIVE (NEGATIVE); PROTEIN,URINE 1+ (NEGATIVE); UROBILINOGEN,URINE 3+ (NORMAL)
[2019-05-04 12:19] LABS: APPEARANCE,URINE HAZY (CLEAR); COLOR,URINE DARK YELLOW (YELLOW)
[2019-05-04 12:25] LABS: BACTERIA,URINE TRACE /HPF (NEGATIVE); MUCUS,URINE FEW /HPF (NEGATIVE); RBC,URINE 0-2 /HPF (0-3); SQUAMOUS EPITHELIAL CELL,UR FEW /HPF (NEGATIVE)
[2019-05-04 12:39] LABS: BASOPHILS # (AUTO) 0.1 X10^3/uL (0.0-0.1); BASOPHILS % (AUTO) 0.9 % (0.2-1.0); EOSINOPHILS # (AUTO) 0.1 x10^3/uL (0.0-0.2); EOSINOPHILS % (AUTO) 1.2 % (0.9-2.9); HEMOGLOBIN 13.3 g/dL (13.5-18.0); LYMPHOCYTES # (AUTO) 1.6 X10^3/uL (1.3-2.9); LYMPHOCYTES % (AUTO) 14.3 % (21.0-51.0); MEAN CORPUSCULAR HEMOGLOBIN 28.7 pg (27.0-34.0); MEAN CORPUSCULAR HGB CONC 33.3 g/dL (33.0-35.0); MEAN CORPUSCULAR VOLUME 86.2 fL (80.0-100.0); MEAN PLATELET VOLUME 6.5 fL (7.4-11.0); MONOCYTES # (AUTO) 1.4 x10^3/uL (0.3-0.8); MONOCYTES % (AUTO) 12.5 % (0.0-13.0); NEUTROPHILS # (AUTO) 8.1 x10^3/uL (2.2-4.8); NEUTROPHILS % (AUTO) 71.1 % (42.0-75.0); PLATELET COUNT 279 X10^3/uL (150.0-450.0); RED BLOOD COUNT 4.64 X10^6/uL (4.7-6.0); RED CELL DISTRIBUTION WIDTH 16.9 % (11.6-16.5); WHITE BLOOD COUNT 11.3 X10^3/uL (3.6-10.0)
--- NOTE | 2019-05-04 12:51 | CT ---
HISTORY: mental status changesStudy: CT brain without contrastComparison: NoneTechnique:Multiple axial images of the brain were obtained from the skull base to the vertex without administration of IV contrast.Findings:There is focal low density and atrophy along the right frontoparietal region extending inferiorly into the sylvian fissure and anterior right temporal lobe region consistent with encephalomalacia from an old infarct. There is mild compensatory dilatation of the right lateral ventricle anteriorly. Ventricles are mildly enlarged with mild periventricular low density bilaterally. No intracranial hemorrhage or edema is seen and there is no extra-axial fluid collection or mass. The midline structures are unremarkable. 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
[2019-05-04 13:08] LABS: ALANINE AMINOTRANSFERASE 32 Units/L (12-78); ALBUMIN 2.7 g/dL (3.4-5.0); ALKALINE PHOSPHATASE 68 Units/L (46-116); ASPARTATE AMINO TRANSFERASE 43 Units/L (15-37); BLOOD UREA NITROGEN 8 mg/dL (7-18); CALCIUM 8.6 mg/dL (8.5-10.1); CARBON DIOXIDE 34.2 mmol/L (21-32); CHLORIDE 99 mmol/L (98-107); CKMB % 0.4 % (<4); COR CA(FOR HYPOALB) 9.6 mg/dL (8.5-10.1); CREATINE KINASE 722 Units/L (39-308); CREATINE KINASE MB 2.5 ng/mL (0-4.0); CREATININE 0.82 mg/dL (0.70-1.30); SODIUM 137 mmol/L (136-145); TOTAL PROTEIN 7.3 g/dL (6.4-8.2); TROPONIN I < 0.02 ng/mL (0-1.5); eGFR NON BLACK RACES > 60 (>60)
--- NOTE | 2019-05-04 13:27 | RAD ---
HISTORYAMS, SOBSTUDYAP [id number] normal heart size. Persistent right medial lower lobe infi ltrate. 3.0 cm noncalcified peripheral left midlung mass. No bone destruction, pulmonary edema or ple ural fluid.IMPRESSIONPersistent right basal infiltrate consistent with pneumonia or atelectasis. Stab le appearance of left midlung mass which has been previously described on chest CT of 03/24/2019, and is suspicious for carcinoma.Electronically signed by: DESIRE ROCHA (May 04, 2019 13:25:11)
--- NOTE | 2019-05-04 13:44 | RAD ---
HISTORYFellSTUDYLeft shoulder two [id number] AP views of the left shoulder demonstrate a hemiarthroplasty without obvious displacement or periprosthetic fracture. There is degenerative narrowing of the AC joint. No fracture is seen.IMPRESSIONApparent stable appearance of left hemiarthroplasty. Lateral/orthogonal views were not obtained on the current study to confirm anatomic glenohumeral relation.Electronically signed by: EDSIRE ROCHA (May 04, 2019 13:42:47)
[2019-05-04] MEDS ORDERED: K-LYTE EFFERVESCENT PO ONE (14:27)
[2019-05-04] MEDS ORDERED: K-LYTE EFFERVESCENT ONE (14:55)
[2019-05-04] MEDS ORDERED: ROCEPHIN VIAL 1 GRAM 1 G in NS 100 ML IV + SPIKE MINIBAG* 100 ML IV ONE (15:16)
[2019-05-04] MEDS ORDERED: ROCEPHIN VIAL 1 GRAM ONE (15:24)
[2019-05-04] MEDS ORDERED: NS 100 ML IV + SPIKE MINIBAG* 100 ML IV ONE (15:24)
[2019-05-04] MEDS ORDERED: TUSSIONEX PENNKINETIC SUSP PO PRN (17:18)
[2019-05-04] MEDS ORDERED: SALINE 3% 15 ML NEB TX NEB ONE (17:50)
[2019-05-04] MEDS: ROBITUSSIN DM PO SCH ×2 (18:39→21:36)
[2019-05-04] MEDS ORDERED: K-RIDER 10 MEQ/NS 100 ML 10 MEQ/100 ML BAG IV PRN (20:40)
[2019-05-04] MEDS ORDERED: POTASSIUM CHLORIDE LIQ 20 MEQ UDC PO PRN (20:40)
[2019-05-04] MEDS ORDERED: POTASSIUM CHL 40 MEQ/NS 0.45% 500 ML IV PRN (20:40)
[2019-05-04] MEDS ORDERED: POTASSIUM CHL 60 MEQ/NS 0.45% 500 ML IV PRN (20:40)
[2019-05-04] MEDS ORDERED: KLOR-CON PO PRN (20:40)
[2019-05-04] MEDS: DUONEB 0.5 MG/3 MG (3 mL) NEB SCH (20:57)
[2019-05-04] MEDS: VIBRAMYCIN 100 MG in NS 100 ML IV + SPIKE MINIBAG* 100 ML IV SCH (21:30)
[2019-05-05] MEDS: NS 1000 ML 1,000 ML IV SCH ×4 (00:15→20:04)
[2019-05-05] MEDS: DUONEB 0.5 MG/3 MG (3 mL) NEB SCH ×6 (01:05→20:22)
[2019-05-05] MEDS: MAGNESIUM SULFATE 1 GRAM/100 mL PREMIX 1 GM/100 ML BAG IV PRN (01:43)
[2019-05-05 06:34] LABS: BASOPHILS % (AUTO) 0.6 % (0.2-1.0); EOSINOPHILS # (AUTO) 0.2 x10^3/uL (0.0-0.2); EOSINOPHILS % (AUTO) 2.4 % (0.9-2.9); HEMATOCRIT 39.6 % (42.0-54.0); HEMOGLOBIN 13.4 g/dL (13.5-18.0); LYMPHOCYTES # (AUTO) 1.4 X10^3/uL (1.3-2.9); LYMPHOCYTES % (AUTO) 18.2 % (21.0-51.0); MEAN CORPUSCULAR HEMOGLOBIN 29.1 pg (27.0-34.0); MEAN CORPUSCULAR HGB CONC 33.8 g/dL (33.0-35.0); MEAN PLATELET VOLUME 6.5 fL (7.4-11.0); MONOCYTES # (AUTO) 1.1 x10^3/uL (0.3-0.8); NEUTROPHILS # (AUTO) 4.8 x10^3/uL (2.2-4.8); NEUTROPHILS % (AUTO) 63.8 % (42.0-75.0); PLATELET COUNT 292 X10^3/uL (150.0-450.0); WHITE BLOOD COUNT 7.5 X10^3/uL (3.6-10.0)
[2019-05-05 06:44] LABS: ALANINE AMINOTRANSFERASE 40 Units/L (12-78); ALBUMIN 2.3 g/dL (3.4-5.0); ALKALINE PHOSPHATASE 64 Units/L (46-116); ASPARTATE AMINO TRANSFERASE 47 Units/L (15-37); BLOOD UREA NITROGEN 3 mg/dL (7-18); CALCIUM 8.4 mg/dL (8.5-10.1); CARBON DIOXIDE 27.2 mmol/L (21-32); CHLORIDE 102 mmol/L (98-107); COR CA(FOR HYPOALB) 9.8 mg/dL (8.5-10.1); COR NA(FOR HYPERGLY) 138 mmol/L (136-145); CREATININE 0.62 mg/dL (0.70-1.30); MAGNESIUM 1.8 mg/dL (1.7-2.9); SODIUM 137 mmol/L (136-145); TOTAL PROTEIN 6.8 g/dL (6.4-8.2); eGFR NON BLACK RACES > 60 (>60)
--- NOTE | 2019-05-05 09:25 | DR.H&P ---
H&P History & Physical for Day of: H&P Date: 05/04/19 Chief Complaint Chief Complaint: weakness, AMS Allergies Allergies Allergy/AdvReac Type Severity Reaction Status Date / Time No Known Drug Allergies Allergy Verified 11/30/18 11:11 History of Present Illness History of Present Illness: Mr. Barraza is a 68y/o male with multiple comorbidities including CAD, CHF, Type 2 DM, COPD and medical non-compliance. He was found on the floor covered in urine when EMS got there. He was not able to get up so was brought to the ED. He was also confused initially. He reports falling as he was walking to the bathroom but does not recall any other events. He denies feeling sick recently. He reports no trouble with breathing. He states he has been taking his medications. During his last hospitalization, there was a mass found on CT chest and he was supposed to follow up with pulmonary but he states he did not follow up. ED work-up: CT head: negative CXR: persistent RLL infiltrate, mass noted that was present before concerning for carcinoma. Labs: CK 722 ,WBC elevated, low potassium. He was started on IVF and potassium replacement. Abx: Rocephin and doxycycline Past Medical History Past Medical History: Arthritis, Cirrhosis, CHF, COPD, Coronary Artery Disease, CVA, Diabetes, Dyslipidemia, GERD and Hypertension Past Surgical History Surgical History: Unknown Family History Family Medical History: Diabetes Mellitus, Coronary Artery Disease and Heart Failure Social History Does patient currently use any type of tobacco product: Yes Have you used tobacco products in the last 12 months: Yes Type of Tobacco Use: Cigarettes Does any household member use tobacco: Yes Alcohol Use: None Drug Use: None Prescription drug monitoring program results: PDMP was not reviewed Medications Home Medications: No Known Drug Allergies Allergy (Verified 11/30/18 11:11) Labs Result Diagrams: 05/05/19 06:00 05/05/19 06:00 Labs: Laboratory WBC 7.5 X10^3/uL (3.6-10.0) 05/05/19 06:00 RBC 4.60 X10^6/uL (4.7-6.0) L 05/05/19 06:00 Hgb 13.4 g/dL (13.5-18.0) L 05/05/19 06:00 Hct 39.6 % (42.0-54.0) L 05/05/19 06:00 MCV 86.0 fL (80.0-100.0) 05/05/19 06:00 MCH 29.1 pg (27.0-34.0) 05/05/19 06:00 MCHC 33.8 g/dL (33.0-35.0) 05/05/19 06:00 RDW 17.0 % (11.6-16.5) H 05/05/19 06:00 Plt Count 292 X10^3/uL (150.0-450.0) 05/05/19 06:00 MPV 6.5 fL (7.4-11.0) L 05/05/19 06:00 Neut % (Auto) 63.8 % (42.0-75.0) 05/05/19 06:00 Lymph % (Auto) 18.2 % (21.0-51.0) L 05/05/19 06:00 [place] % (Auto) 15.0 % (0.0-13.0) H 05/05/19 06:00 Eos % (Auto) 2.4 % (0.9-2.9) 05/05/19 06:00 Baso % (Auto) 0.6 % (0.2-1.0) 05/05/19 06:00 Neut # (Auto) 4.8 x10^3/uL (2.2-4.8) 05/05/19 06:00 Lymph # (Auto) 1.4 X10^3/uL (1.3-2.9) 05/05/19 06:00 [place] # (Auto) 1.1 x10^3/uL (0.3-0.8) H 05/05/19 06:00 Eos # (Auto) 0.2 x10^3/uL (0.0-0.2) 05/05/19 06:00 Baso # (Auto) 0.0 X10^3/uL (0.0-0.1) 05/05/19 06:00 Absolute Nucleated RBC 0.0 /100WBC 05/05/19 06:00 Sodium 137 mmol/L (136-145) 05/05/19 06:00 Corrected Sodium 138 mmol/L (136-145) 05/05/19 06:00 Potassium 4.1 mmol/L (3.5-5.1) 05/05/19 06:00 Chloride 102 mmol/L (98-107) 05/05/19 06:00 Carbon Dioxide 27.2 mmol/L (21-32) 05/05/19 06:00 BUN 3 mg/dL (7-18) L 05/05/19 06:00 Creatinine 0.62 mg/dL (0.70-1.30) L 05/05/19 06:00 Est GFR (MDRD) Af Amer > 60 (>60) 05/05/19 06:00 Est GFR (MDRD) Non-Af > 60 (>60) 05/05/19 06:00 Glucose 121 mg/dL (65-99) H 05/05/19 06:00 POC Glucose (mg/dL) 125 mg/dL (65-99) H 05/05/19 05:24 Lactic Acid 1.4 mmol/L (0.4-2.0) 05/04/19 14:38 Calcium 8.4 mg/dL (8.5-10.1) L 05/05/19 06:00 Corrected Calcium 9.8 mg/dL (8.5-10.1) 05/05/19 06:00 Magnesium 1.8 mg/dL (1.7-2.9) 05/05/19 06:00 Total Bilirubin 0.60 mg/dL (0.2-1.0) 05/05/19 06:00 AST 47 Units/L (15-37) H 05/05/19 06:00 ALT 40 Units/L (12-78) 05/05/19 06:00 Alkaline Phosphatase 64 Units/L (46-116) 05/05/19 06:00 Creatine Kinase 722 Units/L (39-308) H 05/04/19 12:20 CK-MB (CK-2) 2.5 ng/mL (0-4.0) 05/04/19 12:20 CK/CKMB % Calc 0.4 % (<4) 05/04/19 12:20 Troponin I < 0.02 ng/mL (0-1.5) 05/04/19 12:20 Total Protein 6.8 g/dL (6.4-8.2) 05/05/19 06:00 Albumin 2.3 g/dL (3.4-5.0) L 05/05/19 06:00 Globulin 4.5 g/dL (2.5-4.5) 05/05/19 06:00 Albumin/Globulin Ratio 0.5 Ratio (1.1-2.1) L 05/05/19 06:00 Specimen Type Catherized urine 05/04/19 12:13 Urine Color Dark yellow (YELLOW) 05/04/19 12:13 Urine Appearance Hazy (CLEAR) 05/04/19 12:13 Urine pH 7.0 (5.0 - 8.0) 05/04/19 12:13 Ur Specific [place] 1.005 (1.000-1.030) 05/04/19 12:13 Urine Protein 1+ (NEGATIVE) 05/04/19 12:13 Urine Glucose (UA) Negative (NEGATIVE) 05/04/19 12:13 Urine Ketones 1+ (NEGATIVE) 05/04/19 12:13 Urine Occult Blood Negative (NEGATIVE) 05/04/19 12:13 Urine Nitrite Negative (NEGATIVE) 05/04/19 12:13 Urine Bilirubin Negative (NEGATIVE) 05/04/19 12:13 Urine Urobilinogen 3+ (NORMAL) 05/04/19 12:13 Ur Leukocyte Esterase 1+ (NEGATIVE) 05/04/19 12:13 Urine RBC 0-2 /HPF (0-3) 05/04/19 12:13 Urine WBC 3-5 /HPF (0-5) 05/04/19 12:13 Ur Squamous Epith Cells Few /HPF (NEGATIVE) 05/04/19 12:13 Urine Bacteria Trace /HPF (NEGATIVE) 05/04/19 12:13 Urine Mucus Few /HPF (NEGATIVE) 05/04/19 12:13 Ur Culture Indicated? No/not indicated 05/04/19 12:13 Review of Systems Constitutional: Weakness Eyes: No Symptoms Reported ENT: No Symptoms Reported Respiratory: Shortness of Breath Cardiovascular: No Symptoms Reported Gastrointestinal: No Symptoms Reported Genitourinary: No Symptoms Reported Musculoskeletal: Back Pain and Leg Pain Skin: Bruising Neurological: Weakness and Confusion Physical Exam Vital Signs: Temperature 98.3 F Pulse Rate [Left] 88 Pulse Rate 94 Respiratory Rate 22 Blood Pressure [Right Arm] 135/61 Blood Pressure 124/57 O2 Sat by Pulse Oximetry 96 Oriented: Person and Place Throat: Dry Respiratory: Rhonchi Throughout and Wheezes Throughout Cardiovascular: Normal and Edema Auscultation: Bowel Sounds: Normal Palpation: Normal Tenderness: Normal Skin: Bruising Musculoskeletal: Right, Left, Leg and Motor Deficit Psychiatric: Normal Mood Description: Flat Affect: Flat Speech Pattern: Clear Assessment/Plan (1) AMS (altered mental status): Qualifiers: Altered mental status type: transient alteration of awareness Qualified Code(s): R40.4 - Transient alteration of awareness Status: Acute Plan: Oriented to self and place, able to follow commands and answer questions. CT head: negative for acute changes, chronic lacunar infarct noted. (2) Hypokalemia: Status: Acute Plan: replace as per protocol (3) Rhabdomyolysis: Qualifiers: Rhabdomyolysis type: non-traumatic Qualified Code(s): M62.82 - Rhabdomyolysis Status: Acute Plan: CK elevated, continue hydration likely due to fall at home (4) Leg weakness: Qualifiers: Laterality: bilateral Qualified Code(s): R29.898 - Other symptoms and signs involving the musculoskeletal system Status: Acute Plan: b/l LE weakness, CT-head negative. Will get MRI-brain to rule out acute stroke PT/OT (5) Lung mass: Status: Acute Plan: CXR: Persistent right basal infiltrate consistent with pneumonia or atelectasis. Stable appearance of left midlung mass which has been previously described on chest CT of 03/24/2019, and is suspicious for carcinoma. Patient did not follow up with Pulmonary since the last admission. (6) Right lower lobe pneumonia: Qualifiers: Pneumonia type: due to unspecified organism Qualified Code(s): J18.9 - Pneumonia, unspecified organism Status: Acute Plan: Continue Rocephin and Doxycycline Follow tabitha martinez (7) GERD (gastroesophageal reflux disease): Qualifiers: Esophagitis presence: without esophagitis Qualified Code(s): K21.9 - Gastro-esophageal reflux disease without esophagitis Status: Acute Plan: Continue pantoprazole (8) CAD (coronary artery disease): Qualifiers: Associated angina: angina presence unspecified Coronary Disease- Associated Artery/Lesion type: unspecified vessel or lesion type [place] vs. 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
[2019-05-05] MEDS: ROBITUSSIN DM PO SCH ×4 (10:00→20:36)
[2019-05-05] MEDS: VSL#3 PO SCH (10:00)
[2019-05-05] MEDS: COZAAR PO SCH (10:00)
[2019-05-05] MEDS: PROTONIX TAB 40 MG PO SCH (10:00)
[2019-05-05] MEDS: ASPIRIN 81 MG CHEWTAB PO SCH (10:00)
[2019-05-05] MEDS: TOPROL XL PO SCH (10:01)
[2019-05-05] MEDS: ROCEPHIN VIAL 1 GRAM 1 G in NS 100 ML IV + SPIKE MINIBAG* 100 ML IV SCH (10:01)
--- NOTE | 2019-05-05 10:43 | PCM.PROG ---
Progress Note Progress Note for Day of Date of Exam: 05/05/19 Subjective Subjective: Patient seen at bedside, reports doing ok. He is currently on NC 2L. He denies SOB. He is alert to self and place. He still has weakness, not able to lift both legs. He does not recall a fall or what brought him to the hospital. He reports eating well. Past Medical Family Social History Past Med/Fam/Surg Hx: No changes since H&P Allergies: Allergies No Known Drug Allergies Allergy (Verified 11/30/18 11:11) Review of Systems ROS: No change since H&P Vital Signs and I&O's Vital Signs: Temperature 98.3 F Pulse Rate [Left] 88 Pulse Rate 94 Respiratory Rate 22 Blood Pressure [Right Arm] 135/61 Blood Pressure 124/57 O2 Sat by Pulse Oximetry 96 Intake and Output: Intake & Output 05/02/19 05/03/19 05/04/19 05/05/19 23:59 23:59 23:59 23:59 Intake Total 220 / 220 200 / 200 Output Total 250 / 250 1000 / 1000 Balance -30 / -30 -800 / -800 Physical Exam Oriented: Person and Place Throat: Dry Respiratory: Wheezes and Rhonchi Cardiovascular: Normal and Edema Auscultation: Bowel Sounds: Normal Tenderness: Normal Skin: Bruising Musculoskeletal: Right, Left, Leg and Motor Deficit Psychiatric: Normal Mood Description: Flat Affect: Flat Speech Pattern: Clear Laboratory and Diagnostics Result Diagrams: 05/05/19 06:00 05/05/19 06:00 Labs: Laboratory WBC 7.5 X10^3/uL (3.6-10.0) 05/05/19 06:00 RBC 4.60 X10^6/uL (4.7-6.0) L 05/05/19 06:00 Hgb 13.4 g/dL (13.5-18.0) L 05/05/19 06:00 Hct 39.6 % (42.0-54.0) L 05/05/19 06:00 MCV 86.0 fL (80.0-100.0) 05/05/19 06:00 MCH 29.1 pg (27.0-34.0) 05/05/19 06:00 MCHC 33.8 g/dL (33.0-35.0) 05/05/19 06:00 RDW 17.0 % (11.6-16.5) H 05/05/19 06:00 Plt Count 292 X10^3/uL (150.0-450.0) 05/05/19 06:00 MPV 6.5 fL (7.4-11.0) L 05/05/19 06:00 Neut % (Auto) 63.8 % (42.0-75.0) 05/05/19 06:00 Lymph % (Auto) 18.2 % (21.0-51.0) L 05/05/19 06:00 [place] % (Auto) 15.0 % (0.0-13.0) H 05/05/19 06:00 Eos % (Auto) 2.4 % (0.9-2.9) 05/05/19 06:00 Baso % (Auto) 0.6 % (0.2-1.0) 05/05/19 06:00 Neut # (Auto) 4.8 x10^3/uL (2.2-4.8) 05/05/19 06:00 Lymph # (Auto) 1.4 X10^3/uL (1.3-2.9) 05/05/19 06:00 [place] # (Auto) 1.1 x10^3/uL (0.3-0.8) H 05/05/19 06:00 Eos # (Auto) 0.2 x10^3/uL (0.0-0.2) 05/05/19 06:00 Baso # (Auto) 0.0 X10^3/uL (0.0-0.1) 05/05/19 06:00 Absolute Nucleated RBC 0.0 /100WBC 05/05/19 06:00 Sodium 137 mmol/L (136-145) 05/05/19 06:00 Corrected Sodium 138 mmol/L (136-145) 05/05/19 06:00 Potassium 4.1 mmol/L (3.5-5.1) 05/05/19 06:00 Chloride 102 mmol/L (98-107) 05/05/19 06:00 Carbon Dioxide 27.2 mmol/L (21-32) 05/05/19 06:00 BUN 3 mg/dL (7-18) L 05/05/19 06:00 Creatinine 0.62 mg/dL (0.70-1.30) L 05/05/19 06:00 Est GFR (MDRD) Af Amer > 60 (>60) 05/05/19 06:00 Est GFR (MDRD) Non-Af > 60 (>60) 05/05/19 06:00 Glucose 121 mg/dL (65-99) H 05/05/19 06:00 POC Glucose (mg/dL) 125 mg/dL (65-99) H 05/05/19 05:24 Lactic Acid 1.4 mmol/L (0.4-2.0) 05/04/19 14:38 Calcium 8.4 mg/dL (8.5-10.1) L 05/05/19 06:00 Corrected Calcium 9.8 mg/dL (8.5-10.1) 05/05/19 06:00 Magnesium 1.8 mg/dL (1.7-2.9) 05/05/19 06:00 Total Bilirubin 0.60 mg/dL (0.2-1.0) 05/05/19 06:00 AST 47 Units/L (15-37) H 05/05/19 06:00 ALT 40 Units/L (12-78) 05/05/19 06:00 Alkaline Phosphatase 64 Units/L (46-116) 05/05/19 06:00 Creatine Kinase 722 Units/L (39-308) H 05/04/19 12:20 CK-MB (CK-2) 2.5 ng/mL (0-4.0) 05/04/19 12:20 CK/CKMB % Calc 0.4 % (<4) 05/04/19 12:20 Troponin I < 0.02 ng/mL (0-1.5) 05/04/19 12:20 Total Protein 6.8 g/dL (6.4-8.2) 05/05/19 06:00 Albumin 2.3 g/dL (3.4-5.0) L 05/05/19 06:00 Globulin 4.5 g/dL (2.5-4.5) 05/05/19 06:00 Albumin/Globulin Ratio 0.5 Ratio (1.1-2.1) L 05/05/19 06:00 Specimen Type Catherized urine 05/04/19 12:13 Urine Color Dark yellow (YELLOW) 05/04/19 12:13 Urine Appearance Hazy (CLEAR) 05/04/19 12:13 Urine pH 7.0 (5.0 - 8.0) 05/04/19 12:13 Ur Specific [place] 1.005 (1.000-1.030) 05/04/19 12:13 Urine Protein 1+ (NEGATIVE) 05/04/19 12:13 Urine Glucose (UA) Negative (NEGATIVE) 05/04/19 12:13 Urine Ketones 1+ (NEGATIVE) 05/04/19 12:13 Urine Occult Blood Negative (NEGATIVE) 05/04/19 12:13 Urine Nitrite Negative (NEGATIVE) 05/04/19 12:13 Urine Bilirubin Negative (NEGATIVE) 05/04/19 12:13 Urine Urobilinogen 3+ (NORMAL) 05/04/19 12:13 Ur Leukocyte Esterase 1+ (NEGATIVE) 05/04/19 12:13 Urine RBC 0-2 /HPF (0-3) 05/04/19 12:13 Urine WBC 3-5 /HPF (0-5) 05/04/19 12:13 Ur Squamous Epith Cells Few /HPF (NEGATIVE) 05/04/19 12:13 Urine Bacteria Trace /HPF (NEGATIVE) 05/04/19 12:13 Urine Mucus Few /HPF (NEGATIVE) 05/04/19 12:13 Ur Culture Indicated? No/not indicated 05/04/19 12:13 Plan (1) AMS (altered mental status): Status: Acute Qualifiers: Altered mental status type: transient alteration of awareness Qualified Code(s): R40.4 - Transient alteration of awareness Plan: Oriented to self and place, able to follow commands and answer questions. CT head: negative for acute changes, chronic lacunar infarct noted. (2) Hypokalemia: Status: Acute Plan: Resolved, replace as per protocol (3) Rhabdomyolysis: Status: Acute Qualifiers: Rhabdomyolysis type: non-traumatic Qualified Code(s): M62.82 - Rhabdomyolysis Plan: CK elevated, continue hydration likely due to fall at home (4) Leg weakness: Status: Acute Qualifiers: Laterality: bilateral Qualified Code(s): R29.898 - Other symptoms and signs involving the musculoskeletal system Plan: b/l LE weakness, CT-head negative. Will get MRI-brain to rule out acute stroke PT/OT (5) Lung mass: Status: Acute Plan: CXR: Persistent right basal infiltrate consistent with pneumonia or atelectasis. Stable appearance of left midlung mass which has been previously described on chest CT of 03/24/2019, and is suspicious for carcinoma. Patient did not follow up with Pulmonary since the last admission. (6) Right lower lobe pneumonia: Status: Acute Qualifiers: Pneumonia type: due to unspecified organism Qualified Code(s): J18.9 - Pneumonia, unspecified organism Plan: Continue Rocephin and Doxycycline Follow tabitha martinez (7) GERD (gastroesophageal reflux disease): Status: Acute Qualifiers: Esophagitis presence: without esophagitis Qualified Code(s): K21.9 - Gastro-esophageal reflux disease without esophagitis Plan: Continue pantoprazole (8) CAD (coronary artery disease): Status: Acute Qualifiers: Associated angina: angina presence unspecified Coronary Disease- Associated Artery/Lesion type: unspecified vessel or lesion type [place] vs. transplanted heart: [place] heart Qualified Code(s): I25.10 - Atherosclerotic heart disease of [place] coronary artery without angina pectoris Plan: continue aspirin, statin, ezetimibe, losartan and metoprolol (9) Non compliance with medical treatment: Status: Acute (10) Type 2 diabetes mellitus: Status: Chronic Qualifiers: Diabetes mellitus complication detail: with peripheral angiopathy without gangrene Diabetes mellitus complication status: with circulatory complication Diabetes mellitus long-term insulin use: with long-term use Qualified Code(s): E11.51 - Type 2 diabetes mellitus with diabetic peripheral angiopathy without gangrene; Z79.4 - jail (current) use of insulin Plan: start SSI while inpatient
[2019-05-05] MEDS: VIBRAMYCIN 100 MG in NS 100 ML IV + SPIKE MINIBAG* 100 ML IV SCH ×2 (12:38→20:37)
[2019-05-05] MEDS: LOVENOX INJ 40 MG SYR SC SCH (12:38)
[2019-05-05] MEDS: FERROUS GLUCONATE PO SCH (17:11)
[2019-05-05] MEDS: ZETIA TAB 10 MG PO SCH (20:37)
[2019-05-06] MEDS: DUONEB 0.5 MG/3 MG (3 mL) NEB SCH ×6 (01:00→20:45)
[2019-05-06] MEDS: NS 1000 ML 1,000 ML IV SCH ×3 (05:03→20:25)
[2019-05-06 06:50] LABS: BASOPHILS # (AUTO) 0.1 X10^3/uL (0.0-0.1); BASOPHILS % (AUTO) 0.8 % (0.2-1.0); EOSINOPHILS # (AUTO) 0.2 x10^3/uL (0.0-0.2); EOSINOPHILS % (AUTO) 3.3 % (0.9-2.9); HEMATOCRIT 38.8 % (42.0-54.0); HEMOGLOBIN 12.8 g/dL (13.5-18.0); LYMPHOCYTES # (AUTO) 1.4 X10^3/uL (1.3-2.9); LYMPHOCYTES % (AUTO) 18.9 % (21.0-51.0); MEAN CORPUSCULAR HEMOGLOBIN 28.5 pg (27.0-34.0); MEAN CORPUSCULAR VOLUME 86.3 fL (80.0-100.0); MEAN PLATELET VOLUME 6.4 fL (7.4-11.0); MONOCYTES # (AUTO) 1.2 x10^3/uL (0.3-0.8); MONOCYTES % (AUTO) 15.8 % (0.0-13.0); NEUTROPHILS # (AUTO) 4.5 x10^3/uL (2.2-4.8); NEUTROPHILS % (AUTO) 61.2 % (42.0-75.0); PLATELET COUNT 305 X10^3/uL (150.0-450.0); RED BLOOD COUNT 4.49 X10^6/uL (4.7-6.0); RED CELL DISTRIBUTION WIDTH 17.1 % (11.6-16.5); WHITE BLOOD COUNT 7.3 X10^3/uL (3.6-10.0)
[2019-05-06 07:07] LABS: ALANINE AMINOTRANSFERASE 55 Units/L (12-78); ALBUMIN 2.3 g/dL (3.4-5.0); ALKALINE PHOSPHATASE 69 Units/L (46-116); ASPARTATE AMINO TRANSFERASE 47 Units/L (15-37); BLOOD UREA NITROGEN 2 mg/dL (7-18); CARBON DIOXIDE 26.3 mmol/L (21-32); CHLORIDE 104 mmol/L (98-107); COR CA(FOR HYPOALB) 9.4 mg/dL (8.5-10.1); COR NA(FOR HYPERGLY) 140 mmol/L (136-145); CREATINE KINASE 242 Units/L (39-308); CREATININE 0.62 mg/dL (0.70-1.30); MAGNESIUM 1.7 mg/dL (1.7-2.9); SODIUM 140 mmol/L (136-145); TOTAL PROTEIN 6.7 g/dL (6.4-8.2); eGFR NON BLACK RACES > 60 (>60)
[2019-05-06] MEDS: ROBITUSSIN DM PO SCH ×4 (09:20→20:25)
[2019-05-06] MEDS: TOPROL XL PO SCH (09:20)
[2019-05-06] MEDS: VIBRAMYCIN 100 MG in NS 100 ML IV + SPIKE MINIBAG* 100 ML IV SCH ×2 (09:20→20:25)
[2019-05-06] MEDS: ROCEPHIN VIAL 1 GRAM 1 G in NS 100 ML IV + SPIKE MINIBAG* 100 ML IV SCH (09:21)
[2019-05-06] MEDS: VSL#3 PO SCH (09:21)
[2019-05-06] MEDS: LOVENOX INJ 40 MG SYR SC SCH (09:21)
[2019-05-06] MEDS: COZAAR PO SCH (09:22)
[2019-05-06] MEDS: ASPIRIN 81 MG CHEWTAB PO SCH (09:22)
[2019-05-06] MEDS: K-DUR TAB 20 MEQ PO PRN (09:22)
[2019-05-06] MEDS: PROTONIX TAB 40 MG PO SCH (09:22)
--- NOTE | 2019-05-06 10:01 | PCM.PROG ---
Progress Note Progress Note for Day of Date of Exam: 05/06/19 Subjective Subjective: Patient seen at bedside, reports doing well. He is currently on 2L NC, he is not able to tell me how much O2 he uses at home. Patient was found at home on the floor in a very bad condition covered with urine. Patient states his neighbor and his niece check on him regularly. He also states HH services come during the week but he is not sure which company. Adult protective services were called when the patient was admitted. Waiting on their recommendations regarding patient's home conditions. Continue Rocephin and doxycycline for pneumonia. Blood cultures negative, sputum pending. Continue duonebs. Will add prednisone due to wheezing on exam. CK trending down. Replace electrolytes as per protocol. MRI brain was cancelled yesterday, patient does not have any specific neurological deficit but overall generalized weakness due to being in a poor state. Past Medical Family Social History Past Med/Fam/Surg Hx: No changes since H&P Allergies: Allergies No Known Drug Allergies Allergy (Verified 11/30/18 11:11) Review of Systems ROS: No change since H&P Vital Signs and I&O's Vital Signs: Temperature 98.6 F Pulse Rate [Left] 84 Pulse Rate 78 Respiratory Rate 22 Blood Pressure [Right Arm] 147/67 Blood Pressure 124/57 O2 Sat by Pulse Oximetry 90 Intake and Output: Intake & Output 05/03/19 05/04/19 05/05/19 05/06/19 23:59 23:59 23:59 23:59 Intake Total 220 / 220 2730 / 2730 650 / 650 Output Total 250 / 250 1925 / 1925 300 / 300 Balance -30 / -30 805 / 805 350 / 350 Physical Exam Oriented: Person and Place Throat: Normal Respiratory: Wheezes and Rhonchi Cardiovascular: Normal Auscultation: Bowel Sounds: Normal Tenderness: Normal Skin: Wound (multiple skin wounds due to fall and poor hygeine, dressing noted ) and Bruising Musculoskeletal: Right, Left, Leg and Motor Deficit Psychiatric: Normal Mood Description: Flat Affect: Flat Speech Pattern: Clear and Appropriate Laboratory and Diagnostics Result Diagrams: 05/06/19 06:20 05/06/19 06:20 Labs: 05/04/19 14:45 Blood Blood Culture - Preliminary 05/04/19 14:38 Blood Blood Culture - Preliminary 05/05/19 18:00 Sputum - Expectorated Sputum - Final Laboratory WBC 7.3 X10^3/uL (3.6-10.0) 05/06/19 06:20 RBC 4.49 X10^6/uL (4.7-6.0) L 05/06/19 06:20 Hgb 12.8 g/dL (13.5-18.0) L 05/06/19 06:20 Hct 38.8 % (42.0-54.0) L 05/06/19 06:20 MCV 86.3 fL (80.0-100.0) 05/06/19 06:20 MCH 28.5 pg (27.0-34.0) 05/06/19 06:20 MCHC 33.0 g/dL (33.0-35.0) 05/06/19 06:20 RDW 17.1 % (11.6-16.5) H 05/06/19 06:20 Plt Count 305 X10^3/uL (150.0-450.0) 05/06/19 06:20 MPV 6.4 fL (7.4-11.0) L 05/06/19 06:20 Neut % (Auto) 61.2 % (42.0-75.0) 05/06/19 06:20 Lymph % (Auto) 18.9 % (21.0-51.0) L 05/06/19 06:20 [place] % (Auto) 15.8 % (0.0-13.0) H 05/06/19 06:20 Eos % (Auto) 3.3 % (0.9-2.9) H 05/06/19 06:20 Baso % (Auto) 0.8 % (0.2-1.0) 05/06/19 06:20 Neut # (Auto) 4.5 x10^3/uL (2.2-4.8) 05/06/19 06:20 Lymph # (Auto) 1.4 X10^3/uL (1.3-2.9) 05/06/19 06:20 [place] # (Auto) 1.2 x10^3/uL (0.3-0.8) H 05/06/19 06:20 Eos # (Auto) 0.2 x10^3/uL (0.0-0.2) 05/06/19 06:20 Baso # (Auto) 0.1 X10^3/uL (0.0-0.1) 05/06/19 06:20 Absolute Nucleated RBC 0.0 /100WBC 05/06/19 06:20 Sodium 140 mmol/L (136-145) 05/06/19 06:20 Corrected Sodium 140 mmol/L (136-145) 05/06/19 06:20 Potassium 3.8 mmol/L (3.5-5.1) 05/06/19 06:20 Chloride 104 mmol/L (98-107) 05/06/19 06:20 Carbon Dioxide 26.3 mmol/L (21-32) 05/06/19 06:20 BUN 2 mg/dL (7-18) L 05/06/19 06:20 Creatinine 0.62 mg/dL (0.70-1.30) L 05/06/19 06:20 Est GFR (MDRD) Af Amer > 60 (>60) 05/06/19 06:20 Est GFR (MDRD) Non-Af > 60 (>60) 05/06/19 06:20 Glucose 116 mg/dL (65-99) H 05/06/19 06:20 POC Glucose (mg/dL) 125 mg/dL (65-99) H 05/05/19 05:24 Lactic Acid 1.4 mmol/L (0.4-2.0) 05/04/19 14:38 Calcium 8.0 mg/dL (8.5-10.1) L 05/06/19 06:20 Corrected Calcium 9.4 mg/dL (8.5-10.1) 05/06/19 06:20 Magnesium 1.7 mg/dL (1.7-2.9) 05/06/19 06:20 Total Bilirubin 0.40 mg/dL (0.2-1.0) 05/06/19 06:20 AST 47 Units/L (15-37) H 05/06/19 06:20 ALT 55 Units/L (12-78) 05/06/19 06:20 Alkaline Phosphatase 69 Units/L (46-116) 05/06/19 06:20 Creatine Kinase 242 Units/L (39-308) 05/06/19 06:20 CK-MB (CK-2) 2.5 ng/mL (0-4.0) 05/04/19 12:20 CK/CKMB % Calc 0.4 % (<4) 05/04/19 12:20 Troponin I < 0.02 ng/mL (0-1.5) 05/04/19 12:20 Total Protein 6.7 g/dL (6.4-8.2) 05/06/19 06:20 Albumin 2.3 g/dL (3.4-5.0) L 05/06/19 06:20 Globulin 4.4 g/dL (2.5-4.5) 05/06/19 06:20 Albumin/Globulin Ratio 0.5 Ratio (1.1-2.1) L 05/06/19 06:20 Specimen Type Catherized urine 05/04/19 12:13 Urine Color Dark yellow (YELLOW) 05/04/19 12:13 Urine Appearance Hazy (CLEAR) 05/04/19 12:13 Urine pH 7.0 (5.0 - 8.0) 05/04/19 12:13 Ur Specific [place] 1.005 (1.000-1.030) 05/04/19 12:13 Urine Protein 1+ (NEGATIVE) 05/04/19 12:13 Urine Glucose (UA) Negative (NEGATIVE) 05/04/19 12:13 Urine Ketones 1+ (NEGATIVE) 05/04/19 12:13 Urine Occult Blood Negative (NEGATIVE) 05/04/19 12:13 Urine Nitrite Negative (NEGATIVE) 05/04/19 12:13 Urine Bilirubin Negative (NEGATIVE) 05/04/19 12:13 Urine Urobilinogen 3+ (NORMAL) 05/04/19 12:13 Ur Leukocyte Esterase 1+ (NEGATIVE) 05/04/19 12:13 Urine RBC 0-2 /HPF (0-3) 05/04/19 12:13 Urine WBC 3-5 /HPF (0-5) 05/04/19 12:13 Ur Squamous Epith Cells Few /HPF (NEGATIVE) 05/04/19 12:13 Urine Bacteria Trace /HPF (NEGATIVE) 05/04/19 12:13 Urine Mucus Few /HPF (NEGATIVE) 05/04/19 12:13 Ur Culture Indicated? No/not indicated 05/04/19 12:13 Plan (1) AMS (altered mental status): Status: Acute Qualifiers: Altered mental status type: transient alteration of awareness Qualified Code(s): R40.4 - Transient alteration of awareness Plan: Resolved CT head: negative for acute changes, chronic lacunar infarct noted. (2) Hypokalemia: Status: Acute Plan: Resolved, replace as per protocol (3) Rhabdomyolysis: Status: Acute Qualifiers: Rhabdomyolysis type: non-traumatic Qualified Code(s): M62.82 - Rhabdomyolysis Plan: CK trending down, continue gentle hydration. (4) Leg weakness: Status: Acute Qualifiers: Laterality: bilateral Qualified Code(s): R29.898 - Other symptoms and signs involving the musculoskeletal system Plan: b/l LE weakness, CT-head negative. PT/OT (5) Lung mass: Status: Acute Plan: CXR: Persistent right basal infiltrate consistent with pneumonia or atelectasis. Stable appearance of left midlung mass which has been previously described on chest CT of 03/24/2019, and is suspicious for carcinoma. Patient did not follow up with Pulmonary since the last admission. (6) Right lower lobe pneumonia: Status: Acute Qualifiers: Pneumonia type: due to unspecified organism Qualified Code(s): J18.9 - Pneumonia, unspecified organism Plan: Continue Rocephin and Doxycycline Follow tabitha martinez (7) GERD (gastroesophageal reflux disease): Status: Acute Qualifiers: Esophagitis presence: without esophagitis Qualified Code(s): K21.9 - Gastro-esophageal reflux disease without esophagitis Plan: Continue pantoprazole (8) CAD (coronary artery disease): Status: Acute Qualifiers: Associated angina: angina presence unspecified Coronary Disease- Associated Artery/Lesion type: unspecified vessel or lesion type [place] vs. transplanted heart: [place] heart Qualified Code(s): I25.10 - Atherosclerotic heart disease of [place] coronary artery without angina pectoris Plan: continue aspirin, statin, ezetimibe, losartan and metoprolol (9) Non compliance with medical treatment: Status: Acute (10) Type 2 diabetes mellitus: Status: Chronic Qualifiers: Diabetes mellitus complication detail: with peripheral angiopathy without gangrene Diabetes mellitus complication status: with circulatory complication Diabetes mellitus senior living insulin use: with watermelon harvesting supervisor use Qualified Code(s): E11.51 - Type 2 diabetes mellitus with diabetic peripheral angiopathy without gangrene; Z79.4 - tank terminal gauger (current) use of insulin Plan: start SSI while inpatient (11) COPD exacerbation: Status: Acute Plan: Duonebs, start prednisone 40 mg O2 as needed
[2019-05-06] MEDS: PREDNISONE TAB 20 MG PO SCH (12:56)
[2019-05-06] MEDS: MAGNESIUM SULFATE 1 GRAM/100 mL PREMIX 1 GM/100 ML BAG IV PRN ×2 (16:23→17:26)
[2019-05-06] MEDS: FERROUS GLUCONATE PO SCH (17:22)
[2019-05-06] MEDS: FLOMAX PO SCH (20:25)
[2019-05-06] MEDS: ZETIA TAB 10 MG PO SCH (20:25)
[2019-05-06] MEDS: HumuLIN R SC PRN (20:59)
[2019-05-07] MEDS: DUONEB 0.5 MG/3 MG (3 mL) NEB SCH ×6 (00:35→20:28)
[2019-05-07] MEDS: NS 1000 ML 1,000 ML IV SCH (04:25)
[2019-05-07 07:12] LABS: BASOPHILS % (AUTO) 0.2 % (0.2-1.0); EOSINOPHILS % (AUTO) 0.2 % (0.9-2.9); HEMATOCRIT 38.8 % (42.0-54.0); LYMPHOCYTES # (AUTO) 1.5 X10^3/uL (1.3-2.9); LYMPHOCYTES % (AUTO) 20.8 % (21.0-51.0); MEAN CORPUSCULAR HEMOGLOBIN 28.7 pg (27.0-34.0); MEAN CORPUSCULAR HGB CONC 33.5 g/dL (33.0-35.0); MEAN CORPUSCULAR VOLUME 85.6 fL (80.0-100.0); MEAN PLATELET VOLUME 6.4 fL (7.4-11.0); MONOCYTES # (AUTO) 0.9 x10^3/uL (0.3-0.8); MONOCYTES % (AUTO) 11.7 % (0.0-13.0); NEUTROPHILS % (AUTO) 67.1 % (42.0-75.0); PLATELET COUNT 326 X10^3/uL (150.0-450.0); RED BLOOD COUNT 4.53 X10^6/uL (4.7-6.0); RED CELL DISTRIBUTION WIDTH 16.5 % (11.6-16.5); WHITE BLOOD COUNT 7.4 X10^3/uL (3.6-10.0)
[2019-05-07 07:44] LABS: ALANINE AMINOTRANSFERASE 59 Units/L (12-78); ALBUMIN 2.3 g/dL (3.4-5.0); ALKALINE PHOSPHATASE 68 Units/L (46-116); ASPARTATE AMINO TRANSFERASE 34 Units/L (15-37); BLOOD UREA NITROGEN 4 mg/dL (7-18); CALCIUM 8.4 mg/dL (8.5-10.1); CARBON DIOXIDE 25.3 mmol/L (21-32); CHLORIDE 105 mmol/L (98-107); COR CA(FOR HYPOALB) 9.8 mg/dL (8.5-10.1); COR NA(FOR HYPERGLY) 141 mmol/L (136-145); CREATININE 0.62 mg/dL (0.70-1.30); MAGNESIUM 2.2 mg/dL (1.7-2.9); SODIUM 140 mmol/L (136-145); TOTAL PROTEIN 6.8 g/dL (6.4-8.2); eGFR NON BLACK RACES > 60 (>60)
[2019-05-07] MEDS: ROCEPHIN VIAL 1 GRAM 1 G in NS 100 ML IV + SPIKE MINIBAG* 100 ML IV SCH (10:13)
[2019-05-07] MEDS: COZAAR PO SCH (10:14)
[2019-05-07] MEDS: TOPROL XL PO SCH (10:14)
[2019-05-07] MEDS: LOVENOX INJ 40 MG SYR SC SCH (10:18)
[2019-05-07] MEDS: ROBITUSSIN DM PO SCH ×4 (10:18→21:11)
[2019-05-07] MEDS: PREDNISONE TAB 20 MG PO SCH (10:18)
[2019-05-07] MEDS: VSL#3 PO SCH (10:18)
[2019-05-07] MEDS: ASPIRIN 81 MG CHEWTAB PO SCH (10:18)
[2019-05-07] MEDS: PROTONIX TAB 40 MG PO SCH (10:20)
[2019-05-07] MEDS: VIBRAMYCIN 100 MG in NS 100 ML IV + SPIKE MINIBAG* 100 ML IV SCH ×2 (10:30→21:18)
--- NOTE | 2019-05-07 10:54 | PCM.PROG ---
Progress Note Progress Note for Day of Date of Exam: 05/07/19 Subjective Subjective: Patient seen at bedside, no overnight events. He states he is doing fine. He is currently on 2L NC. He reports eating and drinking ok. Waiting on recommendations from Adult protective services regarding patient's living situation. Patient reports he has electricity and hot water at home. He is currently being treated for pneumonia with Rocephin and Doxycycline. His weakness has improved, continue to work with PT/OT, OOB in chair. Sputum and blood cultures are negative. Will stop IVF. Past Medical Family Social History Past Med/Fam/Surg Hx: No changes since H&P Allergies: Allergies No Known Drug Allergies Allergy (Verified 11/30/18 11:11) Review of Systems ROS: No change since H&P Vital Signs and I&O's Vital Signs: Temperature 98.5 F Pulse Rate [Left] 90 Pulse Rate 90 Respiratory Rate 20 Blood Pressure [Right Arm] 140/63 Blood Pressure 124/57 O2 Sat by Pulse Oximetry 98 Intake and Output: Intake & Output 05/04/19 05/05/19 05/06/19 05/07/19 23:59 23:59 23:59 23:59 Intake Total 220 / 220 2730 / 2730 2830 / 2830 650 / 650 Output Total 250 / 250 1925 / 1925 1425 / 1425 300 / 300 Balance -30 / -30 805 / 805 1405 / 1405 350 / 350 Physical Exam Oriented: Person and Place Throat: Normal Respiratory: Wheezes (improved from prev exam ) Cardiovascular: Normal Auscultation: Bowel Sounds: Normal Tenderness: Normal Skin: Wound (multiple skin wounds due to fall and poor hygeine, dressing noted ) and Bruising Musculoskeletal: Right, Left, Leg and Motor Deficit Psychiatric: Normal Mood Description: Flat Affect: Flat Speech Pattern: Clear and Appropriate Laboratory and Diagnostics Result Diagrams: 05/07/19 06:40 05/07/19 06:40 Labs: 05/05/19 18:00 Sputum - Expectorated Sputum Sputum Culture - Preliminary 05/05/19 18:00 Sputum - Expectorated Sputum - Final 05/04/19 14:45 Blood Blood Culture - Preliminary 05/04/19 14:38 Blood Blood Culture - Preliminary Laboratory WBC 7.4 X10^3/uL (3.6-10.0) 05/07/19 06:40 RBC 4.53 X10^6/uL (4.7-6.0) L 05/07/19 06:40 Hgb 13.0 g/dL (13.5-18.0) L 05/07/19 06:40 Hct 38.8 % (42.0-54.0) L 05/07/19 06:40 MCV 85.6 fL (80.0-100.0) 05/07/19 06:40 MCH 28.7 pg (27.0-34.0) 05/07/19 06:40 MCHC 33.5 g/dL (33.0-35.0) 05/07/19 06:40 RDW 16.5 % (11.6-16.5) 05/07/19 06:40 Plt Count 326 X10^3/uL (150.0-450.0) 05/07/19 06:40 MPV 6.4 fL (7.4-11.0) L 05/07/19 06:40 Neut % (Auto) 67.1 % (42.0-75.0) 05/07/19 06:40 Lymph % (Auto) 20.8 % (21.0-51.0) L 05/07/19 06:40 [place] % (Auto) 11.7 % (0.0-13.0) 05/07/19 06:40 Eos % (Auto) 0.2 % (0.9-2.9) L 05/07/19 06:40 Baso % (Auto) 0.2 % (0.2-1.0) 05/07/19 06:40 Neut # (Auto) 5.0 x10^3/uL (2.2-4.8) H 05/07/19 06:40 Lymph # (Auto) 1.5 X10^3/uL (1.3-2.9) 05/07/19 06:40 [place] # (Auto) 0.9 x10^3/uL (0.3-0.8) H 05/07/19 06:40 Eos # (Auto) 0.0 x10^3/uL (0.0-0.2) 05/07/19 06:40 Baso # (Auto) 0.0 X10^3/uL (0.0-0.1) 05/07/19 06:40 Absolute Nucleated RBC 0.1 /100WBC 05/07/19 06:40 Sodium 140 mmol/L (136-145) 05/07/19 06:40 Corrected Sodium 141 mmol/L (136-145) 05/07/19 06:40 Potassium 3.8 mmol/L (3.5-5.1) 05/07/19 06:40 Chloride 105 mmol/L (98-107) 05/07/19 06:40 Carbon Dioxide 25.3 mmol/L (21-32) 05/07/19 06:40 BUN 4 mg/dL (7-18) L 05/07/19 06:40 Creatinine 0.62 mg/dL (0.70-1.30) L 05/07/19 06:40 Est GFR (MDRD) Af Amer > 60 (>60) 05/07/19 06:40 Est GFR (MDRD) Non-Af > 60 (>60) 05/07/19 06:40 Glucose 132 mg/dL (65-99) H 05/07/19 06:40 POC Glucose (mg/dL) 125 mg/dL (65-99) H 05/05/19 05:24 Lactic Acid 1.4 mmol/L (0.4-2.0) 05/04/19 14:38 Calcium 8.4 mg/dL (8.5-10.1) L 05/07/19 06:40 Corrected Calcium 9.8 mg/dL (8.5-10.1) 05/07/19 06:40 Magnesium 2.2 mg/dL (1.7-2.9) 05/07/19 06:40 Total Bilirubin 0.30 mg/dL (0.2-1.0) 05/07/19 06:40 AST 34 Units/L (15-37) 05/07/19 06:40 ALT 59 Units/L (12-78) 05/07/19 06:40 Alkaline Phosphatase 68 Units/L (46-116) 05/07/19 06:40 Creatine Kinase 242 Units/L (39-308) 05/06/19 06:20 CK-MB (CK-2) 2.5 ng/mL (0-4.0) 05/04/19 12:20 CK/CKMB % Calc 0.4 % (<4) 05/04/19 12:20 Troponin I < 0.02 ng/mL (0-1.5) 05/04/19 12:20 Total Protein 6.8 g/dL (6.4-8.2) 05/07/19 06:40 Albumin 2.3 g/dL (3.4-5.0) L 05/07/19 06:40 Globulin 4.5 g/dL (2.5-4.5) 05/07/19 06:40 Albumin/Globulin Ratio 0.5 Ratio (1.1-2.1) L 05/07/19 06:40 Specimen Type Catherized urine 05/04/19 12:13 Urine Color Dark yellow (YELLOW) 05/04/19 12:13 Urine Appearance Hazy (CLEAR) 05/04/19 12:13 Urine pH 7.0 (5.0 - 8.0) 05/04/19 12:13 Ur Specific [place] 1.005 (1.000-1.030) 05/04/19 12:13 Urine Protein 1+ (NEGATIVE) 05/04/19 12:13 Urine Glucose (UA) Negative (NEGATIVE) 05/04/19 12:13 Urine Ketones 1+ (NEGATIVE) 05/04/19 12:13 Urine Occult Blood Negative (NEGATIVE) 05/04/19 12:13 Urine Nitrite Negative (NEGATIVE) 05/04/19 12:13 Urine Bilirubin Negative (NEGATIVE) 05/04/19 12:13 Urine Urobilinogen 3+ (NORMAL) 05/04/19 12:13 Ur Leukocyte Esterase 1+ (NEGATIVE) 05/04/19 12:13 Urine RBC 0-2 /HPF (0-3) 05/04/19 12:13 Urine WBC 3-5 /HPF (0-5) 05/04/19 12:13 Ur Squamous Epith Cells Few /HPF (NEGATIVE) 05/04/19 12:13 Urine Bacteria Trace /HPF (NEGATIVE) 05/04/19 12:13 Urine Mucus Few /HPF (NEGATIVE) 05/04/19 12:13 Ur Culture Indicated? No/not indicated 05/04/19 12:13 Plan (1) AMS (altered mental status): Status: Acute Qualifiers: Altered mental status type: transient alteration of awareness Qualified Code(s): R40.4 - Transient alteration of awareness Plan: Resolved CT head: negative for acute changes, chronic lacunar infarct noted. (2) Hypokalemia: Status: Acute Plan: Resolved, replace as per protocol (3) Rhabdomyolysis: Status: Acute Qualifiers: Rhabdomyolysis type: non-traumatic Qualified Code(s): M62.82 - Rhabdomyolysis Plan: Resolved, stop IVF (4) Leg weakness: Status: Acute Qualifiers: Laterality: bilateral Qualified Code(s): R29.898 - Other symptoms and signs involving the musculoskeletal system Plan: b/l LE weakness, CT-head negative. PT/OT (5) Lung mass: Status: Acute Plan: CXR: Persistent right basal infiltrate consistent with pneumonia or atelectasis. Stable appearance of left midlung mass which has been previously described on chest CT of 03/24/2019, and is suspicious for carcinoma. Patient did not follow up with Pulmonary since the last admission. (6) Right lower lobe pneumonia: Status: Acute Qualifiers: Pneumonia type: due to unspecified organism Qualified Code(s): J18.9 - Pneumonia, unspecified organism Plan: Continue Rocephin and Doxycycline - cultures negative, continue duonebs (7) GERD (gastroesophageal reflux disease): Status: Acute Qualifiers: Esophagitis presence: without esophagitis Qualified Code(s): K21.9 - Gastro-esophageal reflux disease without esophagitis Plan: Continue pantoprazole (8) CAD (coronary artery disease): Status: Acute Qualifiers: Coronary Disease-Associated Artery/Lesion type: unspecified vessel or lesion type [place] vs. transplanted heart: [place] heart Associated angina: angina presence unspecified Qualified Code(s): I25.10 - Atherosclerotic heart disease of [place] coronary artery without angina pectoris Plan: continue aspirin, statin, ezetimibe, losartan and metoprolol (9) Non compliance with medical treatment: Status: Acute (10) Type 2 diabetes mellitus: Status: Chronic Qualifiers: Diabetes mellitus marine oil terminal superintendent insulin use: with skilled nursing use Diabetes mellitus complication status: with circulatory complication Diabetes mellitus complication detail: with peripheral angiopathy without gangrene Qualified Code(s): E11.51 - Type 2 diabetes mellitus with diabetic peripheral angiopathy without gangrene; Z79.4 - long term (current) use of insulin Plan: start SSI while inpatient (11) COPD exacerbation: Status: Acute Plan: Duonebs, continue prednisone 40 mg O2 as needed
[2019-05-07] MEDS: HumuLIN R SC PRN (13:28)
[2019-05-07] MEDS: FERROUS GLUCONATE PO SCH (18:49)
[2019-05-07] MEDS: FLOMAX PO SCH (21:11)
[2019-05-07] MEDS: ZETIA TAB 10 MG PO SCH (21:18)
[2019-05-08] MEDS ORDERED: NS 500 ML IV 500 ML IV ONE (00:27)
[2019-05-08] MEDS: DUONEB 0.5 MG/3 MG (3 mL) NEB SCH ×6 (01:00→20:50)
--- NOTE | 2019-05-08 08:28 | PCM.PROG ---
Progress Note Progress Note for Day of Date of Exam: 05/08/19 Subjective Subjective: No acute overnight events, patient seen at bedside, denies any issues. He states he did not get out of bed yesterday. His leg weakness is slightly better. APS might not have been notified on admission so we will check with them today. Continue PT/OT and follow up on recommendations. Continue IV abx. Past Medical Family Social History Past Med/Fam/Surg Hx: No changes since H&P Allergies: Allergies No Known Drug Allergies Allergy (Verified 11/30/18 11:11) Review of Systems ROS: No change since H&P Vital Signs and I&O's Vital Signs: Temperature 97.7 F Pulse Rate [Left] 79 Pulse Rate 78 Respiratory Rate 18 Blood Pressure [Right Arm] 147/69 Blood Pressure 124/57 O2 Sat by Pulse Oximetry 100 Intake and Output: Intake & Output 05/05/19 05/06/19 05/07/19 05/08/19 23:59 23:59 23:59 23:59 Intake Total 2730 / 2730 2830 / 2830 2009 400 / 400 Output Total 1925 / 1925 1425 / 1425 1200 / 1200 250 / 250 Balance 805 / 805 1405 / 1405 810 / 810 150 / 150 Physical Exam Oriented: Person and Place Throat: Normal Respiratory: Wheezes (improved from prev exam ) and Rhonchi Cardiovascular: Normal Auscultation: Bowel Sounds: Normal Tenderness: Normal Skin: Wound (multiple skin wounds due to fall and poor hygeine, dressing noted ) and Bruising Musculoskeletal: Right, Left, Leg and Motor Deficit Psychiatric: Normal Mood Description: Flat Affect: Flat Speech Pattern: Clear and Appropriate Laboratory and Diagnostics Result Diagrams: 05/07/19 06:40 05/07/19 06:40 Labs: 05/05/19 18:00 Sputum - Expectorated Sputum Sputum Culture - Preliminary 05/05/19 18:00 Sputum - Expectorated Sputum - Final 05/04/19 14:45 Blood Blood Culture - Preliminary 05/04/19 14:38 Blood Blood Culture - Preliminary Laboratory WBC 7.4 X10^3/uL (3.6-10.0) 05/07/19 06:40 RBC 4.53 X10^6/uL (4.7-6.0) L 05/07/19 06:40 Hgb 13.0 g/dL (13.5-18.0) L 05/07/19 06:40 Hct 38.8 % (42.0-54.0) L 05/07/19 06:40 MCV 85.6 fL (80.0-100.0) 05/07/19 06:40 MCH 28.7 pg (27.0-34.0) 05/07/19 06:40 MCHC 33.5 g/dL (33.0-35.0) 05/07/19 06:40 RDW 16.5 % (11.6-16.5) 05/07/19 06:40 Plt Count 326 X10^3/uL (150.0-450.0) 05/07/19 06:40 MPV 6.4 fL (7.4-11.0) L 05/07/19 06:40 Neut % (Auto) 67.1 % (42.0-75.0) 05/07/19 06:40 Lymph % (Auto) 20.8 % (21.0-51.0) L 05/07/19 06:40 [place] % (Auto) 11.7 % (0.0-13.0) 05/07/19 06:40 Eos % (Auto) 0.2 % (0.9-2.9) L 05/07/19 06:40 Baso % (Auto) 0.2 % (0.2-1.0) 05/07/19 06:40 Neut # (Auto) 5.0 x10^3/uL (2.2-4.8) H 05/07/19 06:40 Lymph # (Auto) 1.5 X10^3/uL (1.3-2.9) 05/07/19 06:40 [place] # (Auto) 0.9 x10^3/uL (0.3-0.8) H 05/07/19 06:40 Eos # (Auto) 0.0 x10^3/uL (0.0-0.2) 05/07/19 06:40 Baso # (Auto) 0.0 X10^3/uL (0.0-0.1) 05/07/19 06:40 Absolute Nucleated RBC 0.1 /100WBC 05/07/19 06:40 Sodium 140 mmol/L (136-145) 05/07/19 06:40 Corrected Sodium 141 mmol/L (136-145) 05/07/19 06:40 Potassium 3.8 mmol/L (3.5-5.1) 05/07/19 06:40 Chloride 105 mmol/L (98-107) 05/07/19 06:40 Carbon Dioxide 25.3 mmol/L (21-32) 05/07/19 06:40 BUN 4 mg/dL (7-18) L 05/07/19 06:40 Creatinine 0.62 mg/dL (0.70-1.30) L 05/07/19 06:40 Est GFR (MDRD) Af Amer > 60 (>60) 05/07/19 06:40 Est GFR (MDRD) Non-Af > 60 (>60) 05/07/19 06:40 Glucose 132 mg/dL (65-99) H 05/07/19 06:40 POC Glucose (mg/dL) 125 mg/dL (65-99) H 05/05/19 05:24 Lactic Acid 1.4 mmol/L (0.4-2.0) 05/04/19 14:38 Calcium 8.4 mg/dL (8.5-10.1) L 05/07/19 06:40 Corrected Calcium 9.8 mg/dL (8.5-10.1) 05/07/19 06:40 Magnesium 2.2 mg/dL (1.7-2.9) 05/07/19 06:40 Total Bilirubin 0.30 mg/dL (0.2-1.0) 05/07/19 06:40 AST 34 Units/L (15-37) 05/07/19 06:40 ALT 59 Units/L (12-78) 05/07/19 06:40 Alkaline Phosphatase 68 Units/L (46-116) 05/07/19 06:40 Creatine Kinase 242 Units/L (39-308) 05/06/19 06:20 CK-MB (CK-2) 2.5 ng/mL (0-4.0) 05/04/19 12:20 CK/CKMB % Calc 0.4 % (<4) 05/04/19 12:20 Troponin I < 0.02 ng/mL (0-1.5) 05/04/19 12:20 Total Protein 6.8 g/dL (6.4-8.2) 05/07/19 06:40 Albumin 2.3 g/dL (3.4-5.0) L 05/07/19 06:40 Globulin 4.5 g/dL (2.5-4.5) 05/07/19 06:40 Albumin/Globulin Ratio 0.5 Ratio (1.1-2.1) L 05/07/19 06:40 Specimen Type Catherized urine 05/04/19 12:13 Urine Color Dark yellow (YELLOW) 05/04/19 12:13 Urine Appearance Hazy (CLEAR) 05/04/19 12:13 Urine pH 7.0 (5.0 - 8.0) 05/04/19 12:13 Ur Specific [place] 1.005 (1.000-1.030) 05/04/19 12:13 Urine Protein 1+ (NEGATIVE) 05/04/19 12:13 Urine Glucose (UA) Negative (NEGATIVE) 05/04/19 12:13 Urine Ketones 1+ (NEGATIVE) 05/04/19 12:13 Urine Occult Blood Negative (NEGATIVE) 05/04/19 12:13 Urine Nitrite Negative (NEGATIVE) 05/04/19 12:13 Urine Bilirubin Negative (NEGATIVE) 05/04/19 12:13 Urine Urobilinogen 3+ (NORMAL) 05/04/19 12:13 Ur Leukocyte Esterase 1+ (NEGATIVE) 05/04/19 12:13 Urine RBC 0-2 /HPF (0-3) 05/04/19 12:13 Urine WBC 3-5 /HPF (0-5) 05/04/19 12:13 Ur Squamous Epith Cells Few /HPF (NEGATIVE) 05/04/19 12:13 Urine Bacteria Trace /HPF (NEGATIVE) 05/04/19 12:13 Urine Mucus Few /HPF (NEGATIVE) 05/04/19 12:13 Ur Culture Indicated? No/not indicated 05/04/19 12:13 Plan (1) AMS (altered mental status): Status: Acute Qualifiers: Altered mental status type: transient alteration of awareness Qualified Code(s): R40.4 - Transient alteration of awareness Plan: Resolved CT head: negative for acute changes, chronic lacunar infarct noted. (2) Hypokalemia: Status: Acute Plan: Resolved, replace as per protocol (3) Rhabdomyolysis: Status: Acute Qualifiers: Rhabdomyolysis type: non-traumatic Qualified Code(s): M62.82 - Rhabdomyolysis Plan: Resolved (4) Leg weakness: Status: Acute Qualifiers: Laterality: bilateral Qualified Code(s): R29.898 - Other symptoms and signs involving the musculoskeletal system Plan: b/l LE weakness, CT-head negative. PT/OT (5) Lung mass: Status: Acute Plan: CXR: Persistent right basal infiltrate consistent with pneumonia or atelectasis. Stable appearance of left midlung mass which has been previously described on chest CT of 03/24/2019, and is suspicious for carcinoma. Patient did not follow up with Pulmonary since the last admission. (6) Right lower lobe pneumonia: Status: Acute Qualifiers: Pneumonia type: due to unspecified organism Qualified Code(s): J18.9 - Pneumonia, unspecified organism Plan: Continue Rocephin and Doxycycline - cultures negative, continue duonebs (7) GERD (gastroesophageal reflux disease): Status: Acute Qualifiers: Esophagitis presence: without esophagitis Qualified Code(s): K21.9 - Gastro-esophageal reflux disease without esophagitis Plan: Continue pantoprazole (8) CAD (coronary artery disease): Status: Acute Qualifiers: Associated angina: angina presence unspecified Coronary Disease- Associated Artery/Lesion type: unspecified vessel or lesion type [place] vs. transplanted heart: [place] heart Qualified Code(s): I25.10 - Atherosclerotic heart disease of [place] coronary artery without angina pectoris Plan: continue aspirin, statin, ezetimibe, losartan and metoprolol (9) Non compliance with medical treatment: Status: Acute (10) Type 2 diabetes mellitus: Status: Chronic Qualifiers: Diabetes mellitus complication detail: with peripheral angiopathy without gangrene Diabetes mellitus complication status: with circulatory complication Diabetes mellitus terminal carman insulin use: with terminal carman use Qualified Code(s): E11.51 - Type 2 diabetes mellitus with diabetic peripheral angiopathy without gangrene; Z79.4 - correction (current) use of insulin Plan: start SSI while inpatient (11) COPD exacerbation: Status: Acute Plan: Duonebs, continue prednisone 40 mg O2 as needed
[2019-05-08] MEDS: PREDNISONE TAB 20 MG PO SCH (09:14)
[2019-05-08] MEDS: COZAAR PO SCH (09:15)
[2019-05-08] MEDS: VSL#3 PO SCH (09:15)
[2019-05-08] MEDS: TOPROL XL PO SCH (09:15)
[2019-05-08] MEDS: PROTONIX TAB 40 MG PO SCH (09:15)
[2019-05-08] MEDS: LOVENOX INJ 40 MG SYR SC SCH (09:16)
[2019-05-08] MEDS: ASPIRIN 81 MG CHEWTAB PO SCH (09:16)
[2019-05-08] MEDS: ROCEPHIN VIAL 1 GRAM 1 G in NS 100 ML IV + SPIKE MINIBAG* 100 ML IV SCH (09:16)
[2019-05-08] MEDS: ROBITUSSIN DM PO SCH ×3 (09:16→20:39)
[2019-05-08] MEDS: VIBRAMYCIN 100 MG in NS 100 ML IV + SPIKE MINIBAG* 100 ML IV SCH ×2 (10:00→20:40)
[2019-05-08] MEDS: FLOMAX PO SCH (20:39)
[2019-05-08] MEDS: K-DUR TAB 20 MEQ PO PRN (20:39)
[2019-05-08] MEDS: ZETIA TAB 10 MG PO SCH (20:40)
[2019-05-09] MEDS: DUONEB 0.5 MG/3 MG (3 mL) NEB SCH ×6 (00:52→20:10)
[2019-05-09 06:27] LABS: BASOPHILS % (AUTO) 0.5 % (0.2-1.0); EOSINOPHILS % (AUTO) 0.6 % (0.9-2.9); HEMATOCRIT 39.2 % (42.0-54.0); LYMPHOCYTES # (AUTO) 2.8 X10^3/uL (1.3-2.9); LYMPHOCYTES % (AUTO) 35.3 % (21.0-51.0); MEAN CORPUSCULAR HEMOGLOBIN 28.8 pg (27.0-34.0); MEAN CORPUSCULAR HGB CONC 33.3 g/dL (33.0-35.0); MEAN CORPUSCULAR VOLUME 86.6 fL (80.0-100.0); MEAN PLATELET VOLUME 6.4 fL (7.4-11.0); MONOCYTES # (AUTO) 1.1 x10^3/uL (0.3-0.8); MONOCYTES % (AUTO) 13.4 % (0.0-13.0); NEUTROPHILS # (AUTO) 4.1 x10^3/uL (2.2-4.8); NEUTROPHILS % (AUTO) 50.2 % (42.0-75.0); PLATELET COUNT 376 X10^3/uL (150.0-450.0); RED BLOOD COUNT 4.52 X10^6/uL (4.7-6.0); RED CELL DISTRIBUTION WIDTH 16.8 % (11.6-16.5); WHITE BLOOD COUNT 8.1 X10^3/uL (3.6-10.0)
[2019-05-09 06:49] LABS: ALANINE AMINOTRANSFERASE 117 Units/L (12-78); ALBUMIN 2.5 g/dL (3.4-5.0); ALKALINE PHOSPHATASE 64 Units/L (46-116); ASPARTATE AMINO TRANSFERASE 58 Units/L (15-37); BLOOD UREA NITROGEN 8 mg/dL (7-18); CALCIUM 8.6 mg/dL (8.5-10.1); CARBON DIOXIDE 27.8 mmol/L (21-32); CHLORIDE 107 mmol/L (98-107); COR CA(FOR HYPOALB) 9.8 mg/dL (8.5-10.1); CREATININE 0.74 mg/dL (0.70-1.30); SODIUM 143 mmol/L (136-145); TOTAL PROTEIN 6.9 g/dL (6.4-8.2); eGFR NON BLACK RACES > 60 (>60)
[2019-05-09] MEDS: FERROUS GLUCONATE PO SCH ×2 (07:18→17:07)
--- NOTE | 2019-05-09 08:17 | PCM.PROG ---
Progress Note Progress Note for Day of Date of Exam: 05/09/19 Subjective Subjective: Patient seen at bedside, no events overnight. Waiting on APS recommendations regarding patient's home condition. Patient worked with PT, sat on the recliner. Discussed STR with patient and he refused and would like to go home with home health. He stated that he had PT at home 2 days a week. He states his strength has improved. He is currently on 2L NC. He will finish last dose of antibiotics today. Continue PT/OT. Past Medical Family Social History Past Med/Fam/Surg Hx: No changes since H&P Allergies: Allergies No Known Drug Allergies Allergy (Verified 11/30/18 11:11) Review of Systems ROS: No change since H&P Vital Signs and I&O's Vital Signs: Temperature 98.9 F Pulse Rate [Left] 95 Pulse Rate 82 Respiratory Rate 20 Blood Pressure [Right Arm] 140/64 Blood Pressure 124/57 O2 Sat by Pulse Oximetry 99 Intake and Output: Intake & Output 05/06/19 05/07/19 05/08/19 05/09/19 23:59 23:59 23:59 23:59 Intake Total 2830 / 2830 2009 1280 / 1280 Output Total 1425 / 1425 1200 / 1200 475 / 475 100 / 100 Balance 1405 / 1405 810 / 810 805 / 805 -90 / -90 Physical Exam Oriented: Person and Place Throat: Normal Respiratory: Wheezes (improved from prev exam ) and Rhonchi Cardiovascular: Tachycardia Auscultation: Bowel Sounds: Normal Tenderness: Normal Skin: Wound (multiple skin wounds due to fall and poor hygeine, dressing noted ) and Bruising Musculoskeletal: Right, Left, Leg and Motor Deficit (weakness improved ) Psychiatric: Normal Mood Description: Flat Affect: Flat Speech Pattern: Clear and Appropriate Laboratory and Diagnostics Result Diagrams: 05/09/19 05:51 05/09/19 05:51 Labs: 05/05/19 18:00 Sputum - Expectorated Sputum Sputum Culture - Final 05/05/19 18:00 Sputum - Expectorated Sputum - Final 05/04/19 14:45 Blood Blood Culture - Preliminary 05/04/19 14:38 Blood Blood Culture - Preliminary Laboratory WBC 8.1 X10^3/uL (3.6-10.0) 05/09/19 05:51 RBC 4.52 X10^6/uL (4.7-6.0) L 05/09/19 05:51 Hgb 13.0 g/dL (13.5-18.0) L 05/09/19 05:51 Hct 39.2 % (42.0-54.0) L 05/09/19 05:51 MCV 86.6 fL (80.0-100.0) 05/09/19 05:51 MCH 28.8 pg (27.0-34.0) 05/09/19 05:51 MCHC 33.3 g/dL (33.0-35.0) 05/09/19 05:51 RDW 16.8 % (11.6-16.5) H 05/09/19 05:51 Plt Count 376 X10^3/uL (150.0-450.0) 05/09/19 05:51 MPV 6.4 fL (7.4-11.0) L 05/09/19 05:51 Neut % (Auto) 50.2 % (42.0-75.0) 05/09/19 05:51 Lymph % (Auto) 35.3 % (21.0-51.0) 05/09/19 05:51 [place] % (Auto) 13.4 % (0.0-13.0) H 05/09/19 05:51 Eos % (Auto) 0.6 % (0.9-2.9) L 05/09/19 05:51 Baso % (Auto) 0.5 % (0.2-1.0) 05/09/19 05:51 Neut # (Auto) 4.1 x10^3/uL (2.2-4.8) 05/09/19 05:51 Lymph # (Auto) 2.8 X10^3/uL (1.3-2.9) 05/09/19 05:51 [place] # (Auto) 1.1 x10^3/uL (0.3-0.8) H 05/09/19 05:51 Eos # (Auto) 0.0 x10^3/uL (0.0-0.2) 05/09/19 05:51 Baso # (Auto) 0.0 X10^3/uL (0.0-0.1) 05/09/19 05:51 Absolute Nucleated RBC 0.0 /100WBC 05/09/19 05:51 Sodium 143 mmol/L (136-145) 05/09/19 05:51 Corrected Sodium TNP 05/09/19 05:51 Potassium 3.4 mmol/L (3.5-5.1) L 05/09/19 05:51 Chloride 107 mmol/L (98-107) 05/09/19 05:51 Carbon Dioxide 27.8 mmol/L (21-32) 05/09/19 05:51 BUN 8 mg/dL (7-18) 05/09/19 05:51 Creatinine 0.74 mg/dL (0.70-1.30) 05/09/19 05:51 Est GFR (MDRD) Af Amer > 60 (>60) 05/09/19 05:51 Est GFR (MDRD) Non-Af > 60 (>60) 05/09/19 05:51 Glucose 104 mg/dL (65-99) H 05/09/19 05:51 POC Glucose (mg/dL) 120 mg/dL (65-99) H 05/09/19 05:41 Lactic Acid 1.4 mmol/L (0.4-2.0) 05/04/19 14:38 Calcium 8.6 mg/dL (8.5-10.1) 05/09/19 05:51 Corrected Calcium 9.8 mg/dL (8.5-10.1) 05/09/19 05:51 Magnesium 1.8 mg/dL (1.7-2.9) 05/09/19 05:51 Total Bilirubin 0.30 mg/dL (0.2-1.0) 05/09/19 05:51 AST 58 Units/L (15-37) H 05/09/19 05:51 ALT 117 Units/L (12-78) H 05/09/19 05:51 Alkaline Phosphatase 64 Units/L (46-116) 05/09/19 05:51 Creatine Kinase 242 Units/L (39-308) 05/06/19 06:20 CK-MB (CK-2) 2.5 ng/mL (0-4.0) 05/04/19 12:20 CK/CKMB % Calc 0.4 % (<4) 05/04/19 12:20 Troponin I < 0.02 ng/mL (0-1.5) 05/04/19 12:20 Total Protein 6.9 g/dL (6.4-8.2) 05/09/19 05:51 Albumin 2.5 g/dL (3.4-5.0) L 05/09/19 05:51 Globulin 4.4 g/dL (2.5-4.5) 05/09/19 05:51 Albumin/Globulin Ratio 0.6 Ratio (1.1-2.1) L 05/09/19 05:51 Specimen Type Catherized urine 05/04/19 12:13 Urine Color Dark yellow (YELLOW) 05/04/19 12:13 Urine Appearance Hazy (CLEAR) 05/04/19 12:13 Urine pH 7.0 (5.0 - 8.0) 05/04/19 12:13 Ur Specific [place] 1.005 (1.000-1.030) 05/04/19 12:13 Urine Protein 1+ (NEGATIVE) 05/04/19 12:13 Urine Glucose (UA) Negative (NEGATIVE) 05/04/19 12:13 Urine Ketones 1+ (NEGATIVE) 05/04/19 12:13 Urine Occult Blood Negative (NEGATIVE) 05/04/19 12:13 Urine Nitrite Negative (NEGATIVE) 05/04/19 12:13 Urine Bilirubin Negative (NEGATIVE) 05/04/19 12:13 Urine Urobilinogen 3+ (NORMAL) 05/04/19 12:13 Ur Leukocyte Esterase 1+ (NEGATIVE) 05/04/19 12:13 Urine RBC 0-2 /HPF (0-3) 05/04/19 12:13 Urine WBC 3-5 /HPF (0-5) 05/04/19 12:13 Ur Squamous Epith Cells Few /HPF (NEGATIVE) 05/04/19 12:13 Urine Bacteria Trace /HPF (NEGATIVE) 05/04/19 12:13 Urine Mucus Few /HPF (NEGATIVE) 05/04/19 12:13 Ur Culture Indicated? No/not indicated 05/04/19 12:13 Plan (1) AMS (altered mental status): Status: Acute Qualifiers: Altered mental status type: transient alteration of awareness Qualified Code(s): R40.4 - Transient alteration of awareness Plan: Resolved CT head: negative for acute changes, chronic lacunar infarct noted. (2) Hypokalemia: Status: Acute Plan: replace as per protocol (3) Rhabdomyolysis: Status: Acute Qualifiers: Rhabdomyolysis type: non-traumatic Qualified Code(s): M62.82 - Rhabdomyolysis Plan: Resolved (4) Leg weakness: Status: Acute Qualifiers: Laterality: bilateral Qualified Code(s): R29.898 - Other symptoms and signs involving the musculoskeletal system Plan: b/l LE weakness, CT-head negative. PT/OT (5) Lung mass: Status: Acute Plan: CXR: Persistent right basal infiltrate consistent with pneumonia or atelectasis. Stable appearance of left midlung mass which has been previously described on chest CT of 03/24/2019, and is suspicious for carcinoma. Patient did not follow up with Pulmonary since the last admission. (6) Right lower lobe pneumonia: Status: Acute Qualifiers: Pneumonia type: due to unspecified organism Qualified Code(s): J18.9 - Pneumonia, unspecified organism Plan: Last dose of Rocephin and Doxycycline today - cultures negative, continue duonebs (7) GERD (gastroesophageal reflux disease): Status: Acute Qualifiers: Esophagitis presence: without esophagitis Qualified Code(s): K21.9 - Gastro-esophageal reflux disease without esophagitis Plan: Continue pantoprazole (8) CAD (coronary artery disease): Status: Acute Qualifiers: Associated angina: angina presence unspecified Coronary Disease-Associated Artery/Lesion type: unspecified vessel or lesion type [place] vs. transplanted heart: [place] heart Qualified Code(s): I25.10 - Atherosc lerotic heart disease of [place] coronary artery without angina pectoris Plan: continue aspirin, statin, ezetimibe, losartan and metoprolol (9) Non compliance with medical treatment: Status: Acute (10) Type 2 diabetes mellitus: Status: Chronic Qualifiers: Diabetes mellitus complication detail: with peripheral angiopathy without gangrene Diabetes mellitus complication status: with circulatory complication Diabetes mellitus termite renewal inspector insulin use: with prison use Qualified Code(s): E11.51 - Type 2 diabetes mellitus with diabetic peripheral angiopathy without gangrene; Z79.4 - long term (current) use of insulin Plan: start SSI while inpatient (11) COPD exacerbation: Status: Acute Plan: Duonebs, continue prednisone 40 mg O2 as needed
[2019-05-09] MEDS: COZAAR PO SCH (09:30)
[2019-05-09] MEDS: LOVENOX INJ 40 MG SYR SC SCH (09:30)
[2019-05-09] MEDS: ROBITUSSIN DM PO SCH ×4 (09:30→20:57)
[2019-05-09] MEDS: ASPIRIN 81 MG CHEWTAB PO SCH (09:30)
[2019-05-09] MEDS: ROCEPHIN VIAL 1 GRAM 1 G in NS 100 ML IV + SPIKE MINIBAG* 100 ML IV SCH (09:30)
[2019-05-09] MEDS: PREDNISONE TAB 20 MG PO SCH (09:30)
[2019-05-09] MEDS: TOPROL XL PO SCH (09:30)
[2019-05-09] MEDS: VIBRAMYCIN 100 MG in NS 100 ML IV + SPIKE MINIBAG* 100 ML IV SCH ×2 (09:30→20:58)
[2019-05-09] MEDS: PROTONIX TAB 40 MG PO SCH (09:30)
[2019-05-09] MEDS: VSL#3 PO SCH (09:30)
[2019-05-09] MEDS: MAGNESIUM SULFATE 1 GRAM/100 mL PREMIX 1 GM/100 ML BAG IV PRN ×2 (19:18→20:10)
[2019-05-09] MEDS: FLOMAX PO SCH (20:57)
[2019-05-09] MEDS: ZETIA TAB 10 MG PO SCH (20:58)
[2019-05-10] MEDS: DUONEB 0.5 MG/3 MG (3 mL) NEB SCH ×6 (01:00→20:40)
[2019-05-10 06:43] LABS: BASOPHILS % (AUTO) 0.6 % (0.2-1.0); EOSINOPHILS # (AUTO) 0.1 x10^3/uL (0.0-0.2); EOSINOPHILS % (AUTO) 1.1 % (0.9-2.9); HEMOGLOBIN 12.8 g/dL (13.5-18.0); LYMPHOCYTES # (AUTO) 2.5 X10^3/uL (1.3-2.9); LYMPHOCYTES % (AUTO) 33.2 % (21.0-51.0); MEAN CORPUSCULAR HEMOGLOBIN 28.3 pg (27.0-34.0); MEAN CORPUSCULAR HGB CONC 32.8 g/dL (33.0-35.0); MEAN CORPUSCULAR VOLUME 86.3 fL (80.0-100.0); MEAN PLATELET VOLUME 6.3 fL (7.4-11.0); MONOCYTES % (AUTO) 13.5 % (0.0-13.0); NEUTROPHILS # (AUTO) 3.9 x10^3/uL (2.2-4.8); NEUTROPHILS % (AUTO) 51.6 % (42.0-75.0); PLATELET COUNT 322 X10^3/uL (150.0-450.0); RED BLOOD COUNT 4.52 X10^6/uL (4.7-6.0); RED CELL DISTRIBUTION WIDTH 17.1 % (11.6-16.5); WHITE BLOOD COUNT 7.5 X10^3/uL (3.6-10.0)
[2019-05-10 06:59] LABS: ALANINE AMINOTRANSFERASE 194 Units/L (12-78); ALBUMIN 2.4 g/dL (3.4-5.0); ALKALINE PHOSPHATASE 69 Units/L (46-116); ASPARTATE AMINO TRANSFERASE 109 Units/L (15-37); BLOOD UREA NITROGEN 8 mg/dL (7-18); CALCIUM 8.3 mg/dL (8.5-10.1); CARBON DIOXIDE 29.8 mmol/L (21-32); CHLORIDE 107 mmol/L (98-107); COR CA(FOR HYPOALB) 9.6 mg/dL (8.5-10.1); SODIUM 142 mmol/L (136-145); TOTAL PROTEIN 6.7 g/dL (6.4-8.2); eGFR NON BLACK RACES > 60 (>60)
--- NOTE | 2019-05-10 08:01 | PCM.PROG ---
Progress Note Progress Note for Day of Date of Exam: 05/10/19 Subjective Subjective: No acute events overnight, patient seen at bedside. Denies any issues. Martinez removed yesterday, patient is still weak to go to the bathroom. He sat in the recliner with assistance. Discussed going to [facility] for physical therapy and patient agreed. CM notified and will look into rehab places today. Add Ensure with meals. Past Medical Family Social History Past Med/Fam/Surg Hx: No changes since H&P Allergies: Allergies No Known Drug Allergies Allergy (Verified 11/30/18 11:11) Review of Systems ROS: No change since H&P Vital Signs and I&O's Vital Signs: Temperature 98.5 F Pulse Rate [Left] 79 Pulse Rate 81 Respiratory Rate 22 Blood Pressure [Right Arm] 161/67 Blood Pressure 124/57 O2 Sat by Pulse Oximetry 100 Intake and Output: Intake & Output 05/07/19 05/08/19 05/09/19 05/10/19 23:59 23:59 23:59 23:59 Intake Total 2009 1280 / 1280 1100 / 1100 Output Total 1200 / 1200 475 / 475 150 / 150 Balance 810 / 810 805 / 805 950 / 950 Physical Exam Oriented: Person and Place Throat: Normal Respiratory: Wheezes (improved from prev exam ) Cardiovascular: Normal Auscultation: Bowel Sounds: Normal Tenderness: Normal Skin: Wound (multiple skin wounds due to fall and poor hygeine, dressing noted ) and Bruising Musculoskeletal: Right, Left, Leg and Motor Deficit (weakness improved ) Psychiatric: Normal Mood Description: Flat Affect: Flat Speech Pattern: Clear and Appropriate Laboratory and Diagnostics Result Diagrams: 05/10/19 06:20 05/10/19 06:20 Labs: 05/04/19 14:45 Blood Blood Culture - Final 05/04/19 14:38 Blood Blood Culture - Final 05/05/19 18:00 Sputum - Expectorated Sputum Sputum Culture - Final 05/05/19 18:00 Sputum - Expectorated Sputum - Final Laboratory WBC 7.5 X10^3/uL (3.6-10.0) 05/10/19 06:20 RBC 4.52 X10^6/uL (4.7-6.0) L 05/10/19 06:20 Hgb 12.8 g/dL (13.5-18.0) L 05/10/19 06:20 Hct 39.0 % (42.0-54.0) L 05/10/19 06:20 MCV 86.3 fL (80.0-100.0) 05/10/19 06:20 MCH 28.3 pg (27.0-34.0) 05/10/19 06:20 MCHC 32.8 g/dL (33.0-35.0) L 05/10/19 06:20 RDW 17.1 % (11.6-16.5) H 05/10/19 06:20 Plt Count 322 X10^3/uL (150.0-450.0) 05/10/19 06:20 MPV 6.3 fL (7.4-11.0) L 05/10/19 06:20 Neut % (Auto) 51.6 % (42.0-75.0) 05/10/19 06:20 Lymph % (Auto) 33.2 % (21.0-51.0) 05/10/19 06:20 [place] % (Auto) 13.5 % (0.0-13.0) H 05/10/19 06:20 Eos % (Auto) 1.1 % (0.9-2.9) 05/10/19 06:20 Baso % (Auto) 0.6 % (0.2-1.0) 05/10/19 06:20 Neut # (Auto) 3.9 x10^3/uL (2.2-4.8) 05/10/19 06:20 Lymph # (Auto) 2.5 X10^3/uL (1.3-2.9) 05/10/19 06:20 [place] # (Auto) 1.0 x10^3/uL (0.3-0.8) H 05/10/19 06:20 Eos # (Auto) 0.1 x10^3/uL (0.0-0.2) 05/10/19 06:20 Baso # (Auto) 0.0 X10^3/uL (0.0-0.1) 05/10/19 06:20 Absolute Nucleated RBC 0.0 /100WBC 05/10/19 06:20 Sodium 142 mmol/L (136-145) 05/10/19 06:20 Corrected Sodium TNP 05/10/19 06:20 Potassium 3.5 mmol/L (3.5-5.1) 05/10/19 06:20 Chloride 107 mmol/L (98-107) 05/10/19 06:20 Carbon Dioxide 29.8 mmol/L (21-32) 05/10/19 06:20 BUN 8 mg/dL (7-18) 05/10/19 06:20 Creatinine 0.70 mg/dL (0.70-1.30) 05/10/19 06:20 Est GFR (MDRD) Af Amer > 60 (>60) 05/10/19 06:20 Est GFR (MDRD) Non-Af > 60 (>60) 05/10/19 06:20 Glucose 106 mg/dL (65-99) H 05/10/19 06:20 POC Glucose (mg/dL) 117 mg/dL (65-99) H 05/10/19 05:47 Lactic Acid 1.4 mmol/L (0.4-2.0) 05/04/19 14:38 Calcium 8.3 mg/dL (8.5-10.1) L 05/10/19 06:20 Corrected Calcium 9.6 mg/dL (8.5-10.1) 05/10/19 06:20 Magnesium 1.8 mg/dL (1.7-2.9) 05/09/19 05:51 Total Bilirubin 0.40 mg/dL (0.2-1.0) 05/10/19 06:20 AST 109 Units/L (15-37) H 05/10/19 06:20 ALT 194 Units/L (12-78) H 05/10/19 06:20 Alkaline Phosphatase 69 Units/L (46-116) 05/10/19 06:20 Creatine Kinase 242 Units/L (39-308) 05/06/19 06:20 CK-MB (CK-2) 2.5 ng/mL (0-4.0) 05/04/19 12:20 CK/CKMB % Calc 0.4 % (<4) 05/04/19 12:20 Troponin I < 0.02 ng/mL (0-1.5) 05/04/19 12:20 Total Protein 6.7 g/dL (6.4-8.2) 05/10/19 06:20 Albumin 2.4 g/dL (3.4-5.0) L 05/10/19 06:20 Globulin 4.3 g/dL (2.5-4.5) 05/10/19 06:20 Albumin/Globulin Ratio 0.6 Ratio (1.1-2.1) L 05/10/19 06:20 Specimen Type Catherized urine 05/04/19 12:13 Urine Color Dark yellow (YELLOW) 05/04/19 12:13 Urine Appearance Hazy (CLEAR) 05/04/19 12:13 Urine pH 7.0 (5.0 - 8.0) 05/04/19 12:13 Ur Specific [place] 1.005 (1.000-1.030) 05/04/19 12:13 Urine Protein 1+ (NEGATIVE) 05/04/19 12:13 Urine Glucose (UA) Negative (NEGATIVE) 05/04/19 12:13 Urine Ketones 1+ (NEGATIVE) 05/04/19 12:13 Urine Occult Blood Negative (NEGATIVE) 05/04/19 12:13 Urine Nitrite Negative (NEGATIVE) 05/04/19 12:13 Urine Bilirubin Negative (NEGATIVE) 05/04/19 12:13 Urine Urobilinogen 3+ (NORMAL) 05/04/19 12:13 Ur Leukocyte Esterase 1+ (NEGATIVE) 05/04/19 12:13 Urine RBC 0-2 /HPF (0-3) 05/04/19 12:13 Urine WBC 3-5 /HPF (0-5) 05/04/19 12:13 Ur Squamous Epith Cells Few /HPF (NEGATIVE) 05/04/19 12:13 Urine Bacteria Trace /HPF (NEGATIVE) 05/04/19 12:13 Urine Mucus Few /HPF (NEGATIVE) 05/04/19 12:13 Ur Culture Indicated? No/not indicated 05/04/19 12:13 Plan (1) AMS (altered mental status): Status: Acute Qualifiers: Altered mental status type: transient alteration of awareness Qualified Code(s): R40.4 - Transient alteration of awareness Plan: Resolved CT head: negative for acute changes, chronic lacunar infarct noted. (2) Hypokalemia: Status: Acute Plan: replace as per protocol (3) Rhabdomyolysis: Status: Acute Qualifiers: Rhabdomyolysis type: non-traumatic Qualified Code(s): M62.82 - Rhabdomyolysis Plan: Resolved (4) Leg weakness: Status: Acute Qualifiers: Laterality: bilateral Qualified Code(s): R29.898 - Other symptoms and signs involving the musculoskeletal system Plan: b/l LE weakness, CT-head negative. PT/OT , send referrals for STR (5) Lung mass: Status: Acute Plan: CXR: Persistent right basal infiltrate consistent with pneumonia or atelectasis. Stable appearance of left midlung mass which has been previously described on chest CT of 03/24/2019, and is suspicious for carcinoma. Patient did not follow up with Pulmonary since the last admission. (6) Right lower lobe pneumonia: Status: Acute Qualifiers: Pneumonia type: due to unspecified organism Qualified Code(s): J18.9 - Pneumonia, unspecified organism Plan: Completed course of antibiotics - cultures negative, continue duonebs (7) GERD (gastroesophageal reflux disease): Status: Acute Qualifiers: Esophagitis presence: without esophagitis Qualified Code(s): K21.9 - Gastro-esophageal reflux disease without esophagitis Plan: Continue pantoprazole (8) CAD (coronary artery disease): Status: Acute Qualifiers: Associated angina: angina presence unspecified Coronary Disease- Associated Artery/Lesion type: unspecified vessel or lesion type [place] vs. transplanted heart: [place] heart Qualified Code(s): I25.10 - Atherosclerotic heart disease of [place] coronary artery without angina pectoris Plan: continue aspirin, statin, ezetimibe, losartan and metoprolol (9) Non compliance with medical treatment: Status: Acute (10) Type 2 diabetes mellitus: Status: Chronic Qualifiers: Diabetes mellitus complication detail: with peripheral angiopathy without gangrene Diabetes mellitus complication status: with circulatory complication Diabetes mellitus half-way insulin use: with half-way use Qualified Code(s): E11.51 - Type 2 diabetes mellitus with diabetic peripheral angiopathy without gangrene; Z79.4 - long-term (current) use of insulin Plan: start SSI while inpatient (11) COPD exacerbation: Status: Acute Plan: Duonebs O2 as needed
[2019-05-10] MEDS: ASPIRIN 81 MG CHEWTAB PO SCH (09:11)
[2019-05-10] MEDS: VSL#3 PO SCH (09:12)
[2019-05-10] MEDS: PROTONIX TAB 40 MG PO SCH (09:12)
[2019-05-10] MEDS: ROBITUSSIN DM PO SCH ×4 (09:12→21:30)
[2019-05-10] MEDS: TOPROL XL PO SCH (09:12)
[2019-05-10] MEDS: COZAAR PO SCH (09:13)
[2019-05-10] MEDS: LOVENOX INJ 40 MG SYR SC SCH (09:13)
[2019-05-10] MEDS: FERROUS GLUCONATE PO SCH (17:07)
[2019-05-10] MEDS: FLOMAX PO SCH (21:29)
[2019-05-10] MEDS: ZETIA TAB 10 MG PO SCH (21:30)
[2019-05-10] MEDS: MICRO K EXTEN CAP 10 MEQ PO PRN (21:31)
[2019-05-11] MEDS: DUONEB 0.5 MG/3 MG (3 mL) NEB SCH ×6 (01:25→19:50)
[2019-05-11] MEDS: ASPIRIN 81 MG CHEWTAB PO SCH (09:26)
[2019-05-11] MEDS: LOVENOX INJ 40 MG SYR SC SCH (09:26)
[2019-05-11] MEDS: ROBITUSSIN DM PO SCH ×4 (09:26→21:06)
[2019-05-11] MEDS: VSL#3 PO SCH (09:27)
[2019-05-11] MEDS: COZAAR PO SCH (09:27)
[2019-05-11] MEDS: TOPROL XL PO SCH (09:28)
[2019-05-11] MEDS: PROTONIX TAB 40 MG PO SCH (09:28)
--- NOTE | 2019-05-11 14:45 | PCM.PROG ---
Progress Note Progress Note for Day of Date of Exam: 05/11/19 Subjective Subjective: Patient seen at bedside, doing well. He has been sitting in the recliner. Awaiting alf placement. Past Medical Family Social History Past Med/Fam/Surg Hx: No changes since H&P Allergies: Allergies No Known Drug Allergies Allergy (Verified 11/30/18 11:11) Review of Systems ROS: No change since H&P Vital Signs and I&O's Vital Signs: Temperature 98.5 F Pulse Rate [Left] 94 Pulse Rate 82 Respiratory Rate 22 Blood Pressure [Left Arm] 104/54 Blood Pressure [Right Arm] 111/82 Blood Pressure 124/57 O2 Sat by Pulse Oximetry 98 Intake and Output: Intake & Output 05/08/19 05/09/19 05/10/19 05/11/19 23:59 23:59 23:59 23:59 Intake Total 1280 / 1280 1100 / 1100 1070 / 1070 10 10 Output Total 475 / 475 150 / 150 Balance 805 / 805 950 / 950 1070 / 1070 10 Physical Exam Oriented: Person and Place Throat: Normal Respiratory: Wheezes (improved from prev exam ) Cardiovascular: Normal Auscultation: Bowel Sounds: Normal Tenderness: Normal Skin: Wound (multiple skin wounds due to fall and poor hygeine, dressing noted ) and Bruising Musculoskeletal: Right, Left, Leg and Motor Deficit (weakness improved ) Psychiatric: Normal Mood Description: Flat Affect: Flat Speech Pattern: Clear and Appropriate Laboratory and Diagnostics Result Diagrams: 05/10/19 06:20 05/10/19 06:20 Labs: 05/04/19 14:45 Blood Blood Culture - Final 05/04/19 14:38 Blood Blood Culture - Final 05/05/19 18:00 Sputum - Expectorated Sputum Sputum Culture - Final 05/05/19 18:00 Sputum - Expectorated Sputum - Final Laboratory WBC 7.5 X10^3/uL (3.6-10.0) 05/10/19 06:20 RBC 4.52 X10^6/uL (4.7-6.0) L 05/10/19 06:20 Hgb 12.8 g/dL (13.5-18.0) L 05/10/19 06:20 Hct 39.0 % (42.0-54.0) L 05/10/19 06:20 MCV 86.3 fL (80.0-100.0) 05/10/19 06:20 MCH 28.3 pg (27.0-34.0) 05/10/19 06:20 MCHC 32.8 g/dL (33.0-35.0) L 05/10/19 06:20 RDW 17.1 % (11.6-16.5) H 05/10/19 06:20 Plt Count 322 X10^3/uL (150.0-450.0) 05/10/19 06:20 MPV 6.3 fL (7.4-11.0) L 05/10/19 06:20 Neut % (Auto) 51.6 % (42.0-75.0) 05/10/19 06:20 Lymph % (Auto) 33.2 % (21.0-51.0) 05/10/19 06:20 [place] % (Auto) 13.5 % (0.0-13.0) H 05/10/19 06:20 Eos % (Auto) 1.1 % (0.9-2.9) 05/10/19 06:20 Baso % (Auto) 0.6 % (0.2-1.0) 05/10/19 06:20 Neut # (Auto) 3.9 x10^3/uL (2.2-4.8) 05/10/19 06:20 Lymph # (Auto) 2.5 X10^3/uL (1.3-2.9) 05/10/19 06:20 [place] # (Auto) 1.0 x10^3/uL (0.3-0.8) H 05/10/19 06:20 Eos # (Auto) 0.1 x10^3/uL (0.0-0.2) 05/10/19 06:20 Baso # (Auto) 0.0 X10^3/uL (0.0-0.1) 05/10/19 06:20 Absolute Nucleated RBC 0.0 /100WBC 05/10/19 06:20 Sodium 142 mmol/L (136-145) 05/10/19 06:20 Corrected Sodium TNP 05/10/19 06:20 Potassium 3.5 mmol/L (3.5-5.1) 05/10/19 06:20 Chloride 107 mmol/L (98-107) 05/10/19 06:20 Carbon Dioxide 29.8 mmol/L (21-32) 05/10/19 06:20 BUN 8 mg/dL (7-18) 05/10/19 06:20 Creatinine 0.70 mg/dL (0.70-1.30) 05/10/19 06:20 Est GFR (MDRD) Af Amer > 60 (>60) 05/10/19 06:20 Est GFR (MDRD) Non-Af > 60 (>60) 05/10/19 06:20 Glucose 106 mg/dL (65-99) H 05/10/19 06:20 POC Glucose (mg/dL) 105 mg/dL (65-99) H 05/11/19 05:23 Lactic Acid 1.4 mmol/L (0.4-2.0) 05/04/19 14:38 Calcium 8.3 mg/dL (8.5-10.1) L 05/10/19 06:20 Corrected Calcium 9.6 mg/dL (8.5-10.1) 05/10/19 06:20 Magnesium 1.8 mg/dL (1.7-2.9) 05/09/19 05:51 Total Bilirubin 0.40 mg/dL (0.2-1.0) 05/10/19 06:20 AST 109 Units/L (15-37) H 05/10/19 06:20 ALT 194 Units/L (12-78) H 05/10/19 06:20 Alkaline Phosphatase 69 Units/L (46-116) 05/10/19 06:20 Creatine Kinase 242 Units/L (39-308) 05/06/19 06:20 CK-MB (CK-2) 2.5 ng/mL (0-4.0) 05/04/19 12:20 CK/CKMB % Calc 0.4 % (<4) 05/04/19 12:20 Troponin I < 0.02 ng/mL (0-1.5) 05/04/19 12:20 Total Protein 6.7 g/dL (6.4-8.2) 05/10/19 06:20 Albumin 2.4 g/dL (3.4-5.0) L 05/10/19 06:20 Globulin 4.3 g/dL (2.5-4.5) 05/10/19 06:20 Albumin/Globulin Ratio 0.6 Ratio (1.1-2.1) L 05/10/19 06:20 Specimen Type Catherized urine 05/04/19 12:13 Urine Color Dark yellow (YELLOW) 05/04/19 12:13 Urine Appearance Hazy (CLEAR) 05/04/19 12:13 Urine pH 7.0 (5.0 - 8.0) 05/04/19 12:13 Ur Specific [place] 1.005 (1.000-1.030) 05/04/19 12:13 Urine Protein 1+ (NEGATIVE) 05/04/19 12:13 Urine Glucose (UA) Negative (NEGATIVE) 05/04/19 12:13 Urine Ketones 1+ (NEGATIVE) 05/04/19 12:13 Urine Occult Blood Negative (NEGATIVE) 05/04/19 12:13 Urine Nitrite Negative (NEGATIVE) 05/04/19 12:13 Urine Bilirubin Negative (NEGATIVE) 05/04/19 12:13 Urine Urobilinogen 3+ (NORMAL) 05/04/19 12:13 Ur Leukocyte Esterase 1+ (NEGATIVE) 05/04/19 12:13 Urine RBC 0-2 /HPF (0-3) 05/04/19 12:13 Urine WBC 3-5 /HPF (0-5) 05/04/19 12:13 Ur Squamous Epith Cells Few /HPF (NEGATIVE) 05/04/19 12:13 Urine Bacteria Trace /HPF (NEGATIVE) 05/04/19 12:13 Urine Mucus Few /HPF (NEGATIVE) 05/04/19 12:13 Ur Culture Indicated? No/not indicated 05/04/19 12:13 Plan (1) AMS (altered mental status): Status: Acute Qualifiers: Altered mental status type: transient alteration of awareness Qualified Code(s): R40.4 - Transient alteration of awareness Plan: Resolved CT head: negative for acute changes, chronic lacunar infarct noted. (2) Hypokalemia: Status: Acute Plan: replace as per protocol (3) Rhabdomyolysis: Status: Acute Qualifiers: Rhabdomyolysis type: non-traumatic Qualified Code(s): M62.82 - Rhabdomyolysis Plan: Resolved (4) Leg weakness: Status: Acute Qualifiers: Laterality: bilateral Qualified Code(s): R29.898 - Other symptoms and signs involving the musculoskeletal system Plan: b/l LE weakness, CT-head negative. PT/OT , send referrals for STR (5) Lung mass: Status: Acute Plan: CXR: Persistent right basal infiltrate consistent with pneumonia or atelectasis. Stable appearance of left midlung mass which has been previously described on chest CT of 03/24/2019, and is suspicious for carcinoma. Patient did not follow up with Pulmonary since the last admission. (6) Right lower lobe pneumonia: Status: Acute Qualifiers: Pneumonia type: due to unspecified organism Qualified Code(s): J18.9 - Pneumonia, unspecified organism Plan: Completed course of antibiotics - cultures negative, continue duonebs (7) GERD (gastroesophageal reflux disease): Status: Acute Qualifiers: Esophagitis presence: without esophagitis Qualified Code(s): K21.9 - Gastro-esophageal reflux disease without esophagitis Plan: Continue pantoprazole (8) CAD (coronary artery disease): Status: Acute Qualifiers: Coronary Disease-Associated Artery/Lesion type: unspecified vessel or lesion type [place] vs. transplanted heart: [place] heart Associated angina: angina presence unspecified Qualified Code(s): I25.10 - Atherosclerotic heart disease of [place] coronary artery without angina pectoris Plan: continue aspirin, statin, ezetimibe, losartan and metoprolol (9) Non compliance with medical treatment: Status: Acute (10) Type 2 diabetes mellitus: Status: Chronic Qualifiers: Diabetes mellitus longterm insulin use: with alliances consultant use Diabetes mellitus complication status: with circulatory complication Diabetes mellitus complication detail: with peripheral angiopathy without gangrene Qualified Code(s): E11.51 - Type 2 diabetes mellitus with diabetic peripheral angiopathy without gangrene; Z79.4 - halfway (current) use of insulin Plan: start SSI while inpatient (11) COPD exacerbation: Status: Acute Plan: Duonebs O2 as needed
[2019-05-11] MEDS: FERROUS GLUCONATE PO SCH (17:54)
[2019-05-11] MEDS: MICRO K EXTEN CAP 10 MEQ PO PRN (21:06)
[2019-05-11] MEDS: ZETIA TAB 10 MG PO SCH (21:07)
[2019-05-11] MEDS: FLOMAX PO SCH (21:07)
[2019-05-11] MEDS ORDERED: COLACE CAP 100 MG PO PRN (23:55)
[2019-05-11] MEDS ORDERED: MILK OF MAGNESIA PO PRN (23:55)
[2019-05-12] MEDS: DUONEB 0.5 MG/3 MG (3 mL) NEB SCH ×3 (01:11→09:00)
[2019-05-12 08:08] VITALS: BP 145/54
--- NOTE | 2019-05-12 09:03 | W.DIS.FURT ---
Summary of Discharge Discharge Summary of Date Date of Exam: 05/12/19 Admission Date Date of Admission: 05/04/19 Admission Diagnosis Hospital Course: Mr. Barraza is a 68y/o male with multiple comorbidities including CAD, CHF, Type 2 DM, COPD and medical non-compliance. He was found on the floor covered in urine when EMS got there. He was not able to get up so was brought to the ED. He was also confused initially. He reports falling as he was walking to the bathroom but does not recall any other events. He denies feeling sick recently. He reports no trouble with breathing. He states he has been taking his medications. During his last hospitalization, there was a mass found on CT chest and he was supposed to follow up with pulmonary but he states he did not follow up. ED work up included CT head which was negative for acute process, CXR showed RLL infiltrate and mass that was present before concerning for carcinoma. His CK was elevated and potassium was low. He was started on normal saline and IV antibiotics for pneumonia. His labs were monitored daily and electrolytes were replaced as needed. APS was called due to concern about patient's safety at home. PT/OT were consulted and patient's overall weakness improved a little bit but he continued to require assistance to get out of bed. Patient agreed to longterm placement as he lives alone and has not been able to take care of himself. HE completed his course of antibiotics. He will be discharged to [facility] with his home medications. He will need a follow up with Pulmonary. Patient stable for discharge. Vital Signs: Vital Signs (72 hours) 05/09/19 09:23 05/09/19 12:00 05/09/19 16:00 Temperature 98.6 F 98.5 F Pulse Rate 86 Pulse Rate [Left] 94 H 84 Respiratory Rate 20 20 Blood Pressure [Left Arm] Blood Pressure [Right Arm] 165/74 147/63 O2 Sat by Pulse Oximetry 97 95 97 05/09/19 20:00 05/09/19 20:10 05/10/19 00:00 Temperature 98.5 F 98.6 F Pulse Rate 81 Pulse Rate [Left] 81 73 Respiratory Rate 24 26 H Blood Pressure [Left Arm] Blood Pressure [Right Arm] 150/69 144/66 O2 Sat by Pulse Oximetry 95 98 98 05/10/19 04:00 05/10/19 08:00 05/10/19 08:51 Temperature 98.5 F 98.9 F Pulse Rate 90 Pulse Rate [Left] 79 86 Respiratory Rate 22 24 Blood Pressure [Left Arm] Blood Pressure [Right Arm] 161/67 147/65 O2 Sat by Pulse Oximetry 100 97 92 L 05/10/19 12:00 05/10/19 16:00 05/10/19 19:56 Temperature 98.6 F 98.2 F 98.9 F Pulse Rate Pulse Rate [Left] 84 78 71 Respiratory Rate 22 22 18 Blood Pressure [Left Arm] 112/54 119/50 Blood Pressure [Right Arm] 111/82 O2 Sat by Pulse Oximetry 99 99 100 05/10/19 20:40 05/11/19 00:00 05/11/19 04:00 Temperature 98.9 F 98.4 F Pulse Rate 85 Pulse Rate [Left] 80 87 Respiratory Rate 18 18 Blood Pressure [Left Arm] 136/68 121/53 Blood Pressure [Right Arm] O2 Sat by Pulse Oximetry 94 L 100 99 05/11/19 05:35 05/11/19 08:00 05/11/19 08:28 Temperature 98.7 F Pulse Rate 87 Pulse Rate [Left] 92 H Respiratory Rate 22 Blood Pressure [Left Arm] 134/59 Blood Pressure [Right Arm] O2 Sat by Pulse Oximetry 99 98 96 05/11/19 12:00 05/11/19 12:05 05/11/19 16:00 Temperature 98.5 F 99.1 F Pulse Rate 82 Pulse Rate [Left] 94 H 80 Respiratory Rate 22 22 Blood Pressure [Left Arm] 104/54 121/56 Blood Pressure [Right Arm] O2 Sat by Pulse Oximetry 97 98 94 L 05/11/19 16:37 05/11/19 19:48 05/11/19 20:00 Temperature 99.0 F Pulse Rate 78 74 Pulse Rate [Left] 75 Respiratory Rate 26 H Blood Pressure [Left Arm] 112/68 Blood Pressure [Right Arm] O2 Sat by Pulse Oximetry 96 98 100 05/12/19 00:00 05/12/19 03:58 05/12/19 08:00 Temperature 98.7 F 98.5 F 98.7 F Pulse Rate Pulse Rate [Left] 72 80 85 Respiratory Rate 24 24 18 Blood Pressure [Left Arm] 141/53 115/45 145/54 Blood Pressure [Right Arm] O2 Sat by Pulse Oximetry 92 L 99 96 Labs: Laboratory Last Values WBC 7.5 X10^3/uL (3.6-10.0) 05/10/19 06:20 RBC 4.52 X10^6/uL (4.7-6.0) L 05/10/19 06:20 Hgb 12.8 g/dL (13.5-18.0) L 05/10/19 06:20 Hct 39.0 % (42.0-54.0) L 05/10/19 06:20 MCV 86.3 fL (80.0-100.0) 05/10/19 06:20 MCH 28.3 pg (27.0-34.0) 05/10/19 06:20 MCHC 32.8 g/dL (33.0-35.0) L 05/10/19 06:20 RDW 17.1 % (11.6-16.5) H 05/10/19 06:20 Plt Count 322 X10^3/uL (150.0-450.0) 05/10/19 06:20 MPV 6.3 fL (7.4-11.0) L 05/10/19 06:20 Neut % (Auto) 51.6 % (42.0-75.0) 05/10/19 06:20 Lymph % (Auto) 33.2 % (21.0-51.0) 05/10/19 06:20 Coleman % (Auto) 13.5 % (0.0-13.0) H 05/10/19 06:20 Eos % (Auto) 1.1 % (0.9-2.9) 05/10/19 06:20 Baso % (Auto) 0.6 % (0.2-1.0) 05/10/19 06:20 Neut # (Auto) 3.9 x10^3/uL (2.2-4.8) 05/10/19 06:20 Lymph # (Auto) 2.5 X10^3/uL (1.3-2.9) 05/10/19 06:20 Coleman # (Auto) 1.0 x10^3/uL (0.3-0.8) H 05/10/19 06:20 Eos # (Auto) 0.1 x10^3/uL (0.0-0.2) 05/10/19 06:20 Baso # (Auto) 0.0 X10^3/uL (0.0-0.1) 05/10/19 06:20 Absolute Nucleated RBC 0.0 /100WBC 05/10/19 06:20 Sodium 142 mmol/L (136-145) 05/10/19 06:20 Corrected Sodium TNP 05/10/19 06:20 Potassium 3.5 mmol/L (3.5-5.1) 05/10/19 06:20 Chloride 107 mmol/L (98-107) 05/10/19 06:20 Carbon Dioxide 29.8 mmol/L (21-32) 05/10/19 06:20 BUN 8 mg/dL (7-18) 05/10/19 06:20 Creatinine 0.70 mg/dL (0.70-1.30) 05/10/19 06:20 Est GFR (MDRD) Af Amer > 60 (>60) 05/10/19 06:20 Est GFR (MDRD) Non-Af > 60 (>60) 05/10/19 06:20 Glucose 106 mg/dL (65-99) H 05/10/19 06:20 POC Glucose (mg/dL) 123 mg/dL (65-99) H 05/12/19 05:21 Lactic Acid 1.4 mmol/L (0.4-2.0) 05/04/19 14:38 Calcium 8.3 mg/dL (8.5-10.1) L 05/10/19 06:20 Corrected Calcium 9.6 mg/dL (8.5-10.1) 05/10/19 06:20 Magnesium 1.8 mg/dL (1.7-2.9) 05/09/19 05:51 Total Bilirubin 0.40 mg/dL (0.2-1.0) 05/10/19 06:20 AST 109 Units/L (15-37) H 05/10/19 06:20 ALT 194 Units/L (12-78) H 05/10/19 06:20 Alkaline Phosphatase 69 Units/L (46-116) 05/10/19 06:20 Creatine Kinase 242 Units/L (39-308) 05/06/19 06:20 CK-MB (CK-2) 2.5 ng/mL (0-4.0) 05/04/19 12:20 CK/CKMB % Calc 0.4 % (<4) 05/04/19 12:20 Troponin I < 0.02 ng/mL (0-1.5) 05/04/19 12:20 Total Protein 6.7 g/dL (6.4-8.2) 05/10/19 06:20 Albumin 2.4 g/dL (3.4-5.0) L 05/10/19 06:20 Globulin 4.3 g/dL (2.5-4.5) 05/10/19 06:20 Albumin/Globulin Ratio 0.6 Ratio (1.1-2.1) L 05/10/19 06:20 Specimen Type Catherized urine 05/04/19 12:13 Urine Color Dark yellow (YELLOW) 05/04/19 12:13 Urine Appearance Hazy (CLEAR) 05/04/19 12:13 Urine pH 7.0 (5.0 - 8.0) 05/04/19 12:13 Ur Specific [place] 1.005 (1.000-1.030) 05/04/19 12:13 Urine Protein 1+ (NEGATIVE) 05/04/19 12:13 Urine Glucose (UA) Negative (NEGATIVE) 05/04/19 12:13 Urine Ketones 1+ (NEGATIVE) 05/04/19 12:13 Urine Occult Blood Negative (NEGATIVE) 05/04/19 12:13 Urine Nitrite Negative (NEGATIVE) 05/04/19 12:13 Urine Bilirubin Negative (NEGATIVE) 05/04/19 12:13 Urine Urobilinogen 3+ (NORMAL) 05/04/19 12:13 Ur Leukocyte Esterase 1+ (NEGATIVE) 05/04/19 12:13 Urine RBC 0-2 /HPF (0-3) 05/04/19 12:13 Urine WBC 3-5 /HPF (0-5) 05/04/19 12:13 Ur Squamous Epith Cells Few /HPF (NEGATIVE) 05/04/19 12:13 Urine Bacteria Trace /HPF (NEGATIVE) 05/04/19 12:13 Urine Mucus Few /HPF (NEGATIVE) 05/04/19 12:13 Ur Culture Indicated? No/not indicated 05/04/19 12:13 Reason For Visit: AMS,DEHYDRATION,PNEUMONIA,RHABDOMYOLYSIS, Discharge Date Discharge Date: 05/12/19 Discharge Diagnosis All Active Problems (Updated 05/05/19 @ 09:50 by Brooke Villalta) Non compliance with medical treatment (Acute) CAD (coronary artery disease) (Acute) GERD (gastroesophageal reflux disease) (Acute) Right lower lobe pneumonia (Acute) Lung mass (Acute) Leg weakness (Acute) AMS (altered mental status) (Acute) Hypokalemia (Acute) Pneumonia (Acute) Acute dehydration (Acute) Rhabdomyolysis (Acute) Hypokalemia (Acute) Hypertension (Acute) COPD exacerbation (Acute) Tobacco use (Chronic) PAD (peripheral artery disease) (Chronic) Type 2 diabetes mellitus (Chronic) CVA (cerebral vascular accident) (Chronic) Weakness of left lower extremity (Chronic) Shoulder joint replacement status (Chronic) Ankle abrasion (Chronic) Cellulitis (Chronic) Lobar pneumonia, unspecified organism (Acute) Mass of upper lobe of left lung (Acute) Cerebrovascular accident, old (Chronic) Plan of Treatment: Continue with present treatment and follow up plan. Pt is to keep follow up appointment as instructed and take medications as ordered. Discharge Medications Discharge Medications: No Known Drug Allergies Allergy (Verified 11/30/18 11:11) CONTINUE taking the following medications clopidogrel 75 mg PO DAILY 05/06/19 [History] Follow up and Referral Follow Up: 2 Weeks (Pulmonary ) Discharge Disposition Discharge Disposition: [place]
[2019-05-12] MEDS: COZAAR PO SCH (09:15)
[2019-05-12] MEDS: TOPROL XL PO SCH (09:15)
[2019-05-12] MEDS: PROTONIX TAB 40 MG PO SCH (09:15)
[2019-05-12] MEDS: LOVENOX INJ 40 MG SYR SC SCH (09:15)
[2019-05-12] MEDS: VSL#3 PO SCH (09:15)
[2019-05-12] MEDS: ROBITUSSIN DM PO SCH (09:15)
[2019-05-12] MEDS: ASPIRIN 81 MG CHEWTAB PO SCH (09:16)
[2019-05-12] MEDS ORDERED: NICOTINE PATCH TD ONE (10:23)
[2019-05-12] MEDS ORDERED: NICOTINE PATCH TD SCH (11:00)
== END 2019-05-12 10:40 | DRG 194 ==
LOC: MED/SURG 10:25 → ER 10:25 → OBSVTOIN 15:49 → MED/SURG 16:05
PROVIDERS: ADMIT Internal Medicine; ATTEND Internal Medicine
DX: R40.4 Transient alteration of awareness; K21.9 Gastro-esophageal reflux disease without esophagitis; Z91.81 History of falling; M62.82 Rhabdomyolysis; Z79.4 Long term (current) use of insulin; I10 Essential (primary) hypertension; Z91.19 Patient's noncompliance with other medical treatment and regimen; E11.51 Type 2 diabetes mellitus with diabetic peripheral angiopathy without gangrene; R26.89 Other abnormalities of gait and mobility; M25.512 Pain in left shoulder; I25.10 Atherosclerotic heart disease of native coronary artery without angina pectoris; E86.0 Dehydration; E78.49 Other hyperlipidemia; R91.8 Other nonspecific abnormal finding of lung field; J18.8 Other pneumonia, unspecified organism; E87.6 Hypokalemia; J44.1 Chronic obstructive pulmonary disease with (acute) exacerbation
CPT/HCPCS: 36415; 51702; 70450; 71010; 71045; 73030; 80053; 81001; 82550; 82553; 83605; 83735; 84484; 85025; 87040; 87070; 87205; 93005; 94640; 94669; 94760; 96365; 96374; 97110; 97163; 97166; 97530; 97535; 99284; A4222; G0378; J0696; J1650; J1815; J3475; J3480; J3490; J7030; J7040; J7050; J7512; J7620; J8499

== ENCOUNTER 2020-04-05 08:42 | Inpatient (IN) ==
[2020-04-05 08:59] VITALS: BMI 33.3
--- NOTE | 2020-04-05 09:25 | DR.SOBA ---
HPI Time Seen Time Seen by Provider: 04/05/20 09:02 Primary Care Physician Primary Care Physician: LILLIE BEAN HPI Comment HPI Comment: PATIENT IS 69YR OLD MALE IN ER WITH INCREASING SOB AND O2 SAT 75% ON RA IN ER. PATIENT IS COVID 19 VIRUS POSITIVE AND IS WHEEZING. NO FEVER. HISTORY COPD, CHF AND HYPERTENSION. PATIENT IS NOT ON OXYGEN AT THE NURSING H OME. Complaints Chief Complaint Doctors Comments: INCREASING SOB, COVID 19 VIRUS POSITIVE. Chief Complaint:: PT TO ER VIA W,C FROM [facility] , PT IS COVID POSITIVE AND PT C/O > SOB, UPON ARRIVAL TO ER PT HAS SATS OF 75, PT ON RA AND EXP WHEEZES AND RALES NOTED ,BR COVID-19 Coronavirus risk:travel/contact w/high risk person: No Has patient experienced Coronavirus symptoms: No Coronavirus symptoms experienced: Coughing and Shortness of Breath Reviewed Nurses Notes Reviewed: Yes Source History Provided: Patient and Half-Way Mode of Arrival Mode of Arrival: Wheelchair Timing Onset of Chief Complaint: 04/04/20 Duration Duration: Hours Context Onset:: At Rest PE Risk Factors:: Immobilization History of:: COPD PMH PMH Past Medical History: Yes Past Medical History: Arthritis, Cirrhosis, CHF, COPD, Coronary Artery Disease, CVA, Diabetes, Dyslipidemia, GERD and Hypertension Past Surgical History: Yes Surgical History: Unknown Family History History of Family Medical Conditions: Yes Family Medical History: Diabetes Mellitus, Coronary Artery Disease and Heart Failure Social History Does patient currently use any type of tobacco product: No Have you used tobacco products in the last 12 months: No Type of Tobacco Use: None Does any household member use tobacco: No Alcohol Use: None Do you use any recreational Drugs:: No Lives With: Family Lives Where: Home Travel Risk Coronavirus risk:travel/contact w/high risk person: No Has patient experienced Coronavirus symptoms: No Coronavirus symptoms experienced: Coughing and Shortness of Breath Infectious screening In the last 2 months have you had wt loss of >10#?: NO Have you had fever, night sweats or hemotysis?: No Have you traveled outside the country in the last 6 months?: No Isolation: Droplet ROS Review of Systems Constitutional: See HPI, Weakness and Fatigue; negative Fever Eyes: No Symptoms Reported and See HPI ENTM: See HPI, Nose Discharge and Nose Congestion Respiratoy: Non-Productive Cough, Short of Breath and Wheezing Cardiovascular: See HPI and Chest Pain (CHEST TIGHTNESS.); negative Palpitations Gastrointestinal/Abdominal: No Symptoms Reported and See HPI; negative Abdominal Pain, Diarrhea and Vomiting Genitourinary: No Symptoms Reported and See HPI; negative Dysuria Neurological: See HPI and Weakness; negative Headache and Dizziness Musculoskeletal: See HPI and Back Pain; negative Muscle Pain Integumentary: No Symptoms Reported and See HPI; negative Change in Color and Rash Hematologic/Lymphatic: No Symptoms Reported and See HPI; negative Easy Bruising and Swollen Glands Endocrine: No Symptoms Reported and See HPI; negative Increased Thirst and Increased Urine Psychiatric: No Symptoms Reported and See HPI All Other Systems: Reviewed and Negative PE Vital Signs Vitals: Temperature 99.1 F Pulse Rate 106 Respiratory Rate 38 Blood Pressure [Left Arm] 109/54 Blood Pressure 137/63 O2 Sat by Pulse Oximetry 90 General Limitations: No Limitations General Appearance: Alert and In No Apparent Distress Head Head Exam: Normal Inspection Eyes Eye exam: Normal Appearance and PERRL; negative Scleral Icterus and Conjunctival Injection ENT ENT Exam: Normal Exam, Normal Oropharynx, Normal External Ear Exam and TM's Normal Bilaterally Neck Neck Exam: Normal Inspection and Trachea Midline; negative Tenderness and Lymphadenopathy Chest Chest Inspection: Normal Inspection and Symmetric Chest Wall Rise; negative Tenderness Respiratory Respiratory Exam: Normal Lung Sounds Bilat and Respiratory Distress; negative Accessory Muscle Use and Chest Wall Tenderness Respiratory Exam: Bilateral: Wheezing and Bilateral: Rhonchi, Upper: Wheezing and Lower: Wheezing and Lower: Rhonchi Cardiovascular Cardiovascular Exam: Regular Rate, Normal Rhythm and Normal Heart Sounds; negative Systolic Murmur and Diastolic Murmur Abdominal Exam Abdominal Exam: Normal Inspection, Normal Bowel Sounds and Soft; negative Tenderness Extremities Extremities Exam: Normal Inspection and Normal Capillary Refill; negative Tenderness, Edema and Calf Tenderness Back Back Exam: Normal Inspection; negative (R) CVA Tenderness and (L) CVA Tenderness Neurologic Neurological Exam: Alert and Oriented X3; negative Motor Sensory Deficit Psychiatric Psychiatric Exam: Normal Affect and Normal Mood Skin Skin Exam: Dry MDM Additional Information Obtained Additional Information Obtained From: Old Records Differential Diagnosis Differential Diagnosis: Bronchitis, CHF, COPD, Dysrhythmia, Hypertensive Emergency, Hyponatremia, Mycardial Infarction, Pneumonia, Pneumothorax, Respiratory Insufficiency and URI COURSE Treatment Treatment: SEE ORDERS. NS 1L IV AND ROCEPHIN 1GM IVPB IN ER. AMI, Reevaluation 1st: Improved Consultation Consultation Comments: DISCUSSED PATIENT WITH DR. MOREIRA AND SHE WILL ADMIT PATIENT. ROR Labs Reviewed Laboratory Results Reviewed?: Yes Result Diagrams: 04/06/20 06:13 04/06/20 06:13 Laboratory: Sample Site Rr 04/05/20 09:33 ABG pH 7.480 (7.35-7.45) H 04/05/20 09:33 ABG pCO2 36.0 mmHg (35.0-45.0) 04/05/20 09:33 ABG pO2 66.0 mmHg (80.0-100.0) L 04/05/20 09:33 ABG HCO3 26.8 mmol/L (22-26) H 04/05/20 09:33 ABG O2 Saturation 94.0 % (90-100) 04/05/20 09:33 ABG Base Excess 3.3 mmol/L (-2.0-2.0) H 04/05/20 09:33 Hai Test + 04/05/20 09:33 A-a Gradient 174.0 mmHg 04/05/20 09:33 FiO2 40.0 04/05/20 09:33 Blood Gas Comments Oswaldo well gmb 04/05/20 09:33 Lactic Acid 1.8 mmol/L (0.4-2.0) 04/05/20 09:32 Creatine Kinase 62 Units/L (39-308) 04/05/20 09:32 CK-MB (CK-2) < 1.0 ng/mL (0-4.0) 04/05/20 09:32 CK/CKMB % Calc 1.6 % (<4) 04/05/20 09:32 Troponin I 0.02 ng/mL (0-1.5) 04/05/20 09:32 B-Natriuretic Peptide 269 pg/mL (0-79) H 04/05/20 09:32 XRAY XRAY Interpreted by: Radiologist (REPORT NOTED AND DISCUSSED WITH PATIENT.) and Self Opioid Opioid Risk Tool Age (Ronaldo box if 16-45): No History of Preadolescent Sexual Abuse: No Total: 0 Total Score Risk Category: Low Risk Copyright: [facility] predicting aberrant behaviors Diagnosis Discharge Problem: Hypoxia Pneumonia Qualifiers: Pneumonia type: due to unspecified organism Laterality: right Lung location: upper lobe of lung Qualified Code(s): J18.9 - Pneumonia, unspecified organism CHF (congestive heart failure) Qualifiers: Heart failure type: combined systolic and diastolic Heart failure chronicity: acute on chronic Qualified Code(s): I50.43 - Acute on chronic combined systolic (congestive) and diastolic (congestive) heart failure Instructions Forms: Precautions for COVID19 Patient Portal Social Distancing
[2020-04-05 09:37] LABS: ABG BASE EXCESS 3.3 mmol/L (-2.0-2.0); ABG HCO3 26.8 mmol/L (22-26)
--- NOTE | 2020-04-05 10:06 | RAD ---
HISTORYCOVID, SOBSTUDYCHEST, 1 VIEWCOMPARISONPortable chest March 26, 2020.FINDINGSThe trachea is midline. The cardiac silhouette is borderline enlarged and stable. The infiltrate in the left midlung field shows mild improvement compared to March 26, 2020 but worsening infiltrates are seen right upper lobe peripherally and in the right lung base medially when compared to the last film. There is no pneumothorax or effusions seen.. The bony thorax is unremarkable other than left shoulder prosthesis in place normally aligned..IMPRESSIONImprovement in the infiltrate in the left midlung field but worsening infiltrates right upper lobe and right lower lobe medially when compared to the last film of March 26, 2020.Electronically signed by: JOSE OLSEN (Apr 05, 2020 10:04:12)
[2020-04-05 10:12] LABS: LACTIC ACID 1.8 mmol/L (0.4-2.0)
[2020-04-05 10:14] LABS: CKMB % 1.6 % (<4); CREATINE KINASE 62 Units/L (39-308); CREATINE KINASE MB < 1.0 ng/mL (0-4.0); TROPONIN I 0.02 ng/mL (0-1.5)
[2020-04-05] MEDS ORDERED: LASIX IVP ONE (13:00)
[2020-04-05] MEDS ORDERED: ROCEPHIN VIAL 1 GRAM 1 G in NS 100 ML IV + SPIKE MINIBAG* 100 ML IV ONE (13:03)
[2020-04-05] MEDS ORDERED: ROCEPHIN 1 GRAM IV PREMIX 1 G/50 ML IV.SOLN. IV ONE (13:25)
[2020-04-05] MEDS ORDERED: LASIX ONE (13:25)
[2020-04-05] MEDS ORDERED: NS 1000 ML 1,000 ML ONE (13:25)
[2020-04-05] MEDS ORDERED: REMDESIVIR 200 MG in NS 250 ML IV 250 ML IV ONE (14:09)
[2020-04-05] MEDS ORDERED: REMDESIVIR IV ONE ×2 (14:47→16:50)
[2020-04-05] MEDS ORDERED: NS 250 ML IV 250 ML IV ONE ×2 (14:47→16:50)
[2020-04-05] MEDS ORDERED: PHARMACY CONSULT LTC MEDICATIONS XX SCH (16:00)
[2020-04-05] MEDS ORDERED: TYLENOL 325 MG TAB PO PRN (17:37)
[2020-04-05 19:13] LABS: BILIRUBIN,URINE NEGATIVE (NEGATIVE); BLOOD/HEMOGLOBIN,URINE NEGATIVE (NEGATIVE); GLUCOSE, URINE 3+ (NEGATIVE); KETONES,URINE NEGATIVE (NEGATIVE); LEUKOCYTE ESTERASE ,URINE NEGATIVE (NEGATIVE); NITRITES,URINE NEGATIVE (NEGATIVE); PH,URINE 6.5 (5.0 - 8.0); PROTEIN,URINE 2+ (NEGATIVE); UROBILINOGEN,URINE 2+ (NORMAL)
[2020-04-05] MEDS ORDERED: PEPCID TAB 40 MG ONE (19:13)
[2020-04-05] MEDS ORDERED: LOVENOX INJ 30 MG SYR SC ONE (19:13)
[2020-04-05] MEDS ORDERED: VITAMIN C ONE (19:13)
[2020-04-05 19:22] LABS: APPEARANCE,URINE CLEAR (CLEAR); BACTERIA,URINE TRACE /HPF (NEGATIVE); COLOR,URINE YELLOW (YELLOW); RBC,URINE NONE SEEN /HPF (0-3); SQUAMOUS EPITHELIAL CELL,UR MODERATE /HPF (NEGATIVE)
[2020-04-05] MEDS ORDERED: HumuLIN R ONE (19:51)
[2020-04-05] MEDS: SNACK - Diabetic Appropriate PO SCH (20:06)
[2020-04-05] MEDS: LOVENOX INJ 30 MG SYR SC SCH (20:06)
[2020-04-05] MEDS: PEPCID TAB 40 MG PO SCH (20:08)
[2020-04-05] MEDS: HumuLIN R SC PRN (20:08)
[2020-04-05] MEDS: VITAMIN C PO SCH (20:08)
[2020-04-05] MEDS ORDERED: DUONEB 0.5 MG/3 MG (3 mL) NEB ONE (22:14)
[2020-04-05] MEDS: DUONEB 0.5 MG/3 MG (3 mL) NEB SCH (22:33)
[2020-04-06] MEDS ORDERED: HumuLIN R ONE ×3 (06:07→16:38)
[2020-04-06] MEDS: DUONEB 0.5 MG/3 MG (3 mL) NEB SCH ×3 (06:09→20:45)
[2020-04-06] MEDS: HumuLIN R SC PRN ×4 (06:10→21:45)
[2020-04-06 06:55] LABS: BASOPHILS # (AUTO) 0.1 X10^3/uL (0.0-0.1); BASOPHILS % (AUTO) 1.1 % (0.2-1.0); EOSINOPHILS # (AUTO) 0.1 x10^3/uL (0.0-0.2); EOSINOPHILS % (AUTO) 1.6 % (0.9-2.9); HEMATOCRIT 35.6 % (42.0-54.0); HEMOGLOBIN 11.6 g/dL (13.5-18.0); LYMPHOCYTES % (AUTO) 12.4 % (21.0-51.0); MEAN CORPUSCULAR HEMOGLOBIN 27.8 pg (27.0-34.0); MEAN CORPUSCULAR HGB CONC 32.7 g/dL (33.0-35.0); MEAN PLATELET VOLUME 7.3 fL (7.4-11.0); MONOCYTES # (AUTO) 1.3 x10^3/uL (0.3-0.8); MONOCYTES % (AUTO) 16.7 % (0.0-13.0); NEUTROPHILS # (AUTO) 5.4 x10^3/uL (2.2-4.8); NEUTROPHILS % (AUTO) 68.2 % (42.0-75.0); PLATELET COUNT 521 X10^3/uL (150.0-450.0); RED BLOOD COUNT 4.19 X10^6/uL (4.7-6.0); RED CELL DISTRIBUTION WIDTH 15.5 % (11.6-16.5)
[2020-04-06 07:11] LABS: ALANINE AMINOTRANSFERASE 182 Units/L (12-78); ALKALINE PHOSPHATASE 143 Units/L (46-116); ASPARTATE AMINO TRANSFERASE 136 Units/L (15-37); BLOOD UREA NITROGEN 11 mg/dL (7-18); CALCIUM 8.6 mg/dL (8.5-10.1); CARBON DIOXIDE 24.9 mmol/L (21-32); CHLORIDE 102 mmol/L (98-107); COR CA(FOR HYPOALB) 10.2 mg/dL (8.5-10.1); COR NA(FOR HYPERGLY) 139 mmol/L (136-145); CREATININE 0.91 mg/dL (0.70-1.30); MAGNESIUM 1.9 mg/dL (1.7-2.9); SODIUM 137 mmol/L (136-145); TOTAL PROTEIN 7.3 g/dL (6.4-8.2); eGFR NON BLACK RACES > 60 (>60)
[2020-04-06 08:00] LABS: BAND NEUTROPHILS % 2 % (0-10); METAMYELOCYTES % 1; PLATELET MORPHOLOGY COMMENT NORMAL (NORMAL)
[2020-04-06] MEDS ORDERED: PREDNISONE TAB 20 MG PO ONE (08:26)
[2020-04-06] MEDS ORDERED: CLARITIN ONE (08:26)
[2020-04-06] MEDS ORDERED: VITAMIN C ONE (08:27)
[2020-04-06] MEDS ORDERED: ZINC SULFATE ONE (08:27)
[2020-04-06] MEDS ORDERED: LOVENOX INJ 30 MG SYR SC ONE (08:27)
[2020-04-06] MEDS ORDERED: REMDESIVIR 100 MG in NS 250 ML IV 250 ML IV SCH ×4 (09:00)
[2020-04-06] MEDS ORDERED: PREDNISONE TAB 20 MG PO SCH (09:00)
[2020-04-06] MEDS ORDERED: ZINC 100 MG PO SCH (09:00)
[2020-04-06] MEDS: AMARYL TAB 4 MG PO SCH (09:17)
[2020-04-06] MEDS: ZINC SULFATE PO SCH ×2 (09:17→21:45)
[2020-04-06] MEDS: CLARITIN PO SCH (09:17)
[2020-04-06] MEDS: VITAMIN C PO SCH ×2 (09:18→21:45)
[2020-04-06] MEDS: LOVENOX INJ 30 MG SYR SC SCH ×2 (09:19→21:45)
[2020-04-06] MEDS ORDERED: ZOSYN VIAL 3.375 GRAMS IV ONE ×2 (10:44→14:34)
[2020-04-06] MEDS ORDERED: NS 100 ML IV + SPIKE MINIBAG* 100 ML IV ONE ×2 (10:44→14:35)
[2020-04-06] MEDS ORDERED: SOLU-Medrol 40 MG VIAL ONE ×2 (10:44→14:34)
--- NOTE | 2020-04-06 11:39 | DR.H&P ---
H&P History & Physical for Day of: H&P Date: 04/06/20 Chief Complaint Chief Complaint: SOB, weakness, wheezing Allergies Allergies Allergy/AdvReac Type Severity Reaction Status Date / Time No Known Drug Allergies Allergy Verified 11/30/18 11:11 History of Present Illness History of Present Illness: Mr. Barraza is a 69y/o male patient who was transferred to ED from [facility] due to worsening dyspnea, wheezing and weakness. His O2 sats were noted to be in mid 70s. Patient tested positive for COVID on 03/29/19. He received outpatient treatment with Bamlanivimab last weekend. He also received Zithromax and prednisone. His resp status declined yesterday so was sent to ED. He was initially on 2-3L NC but was transitioned to HHFNC overnight due to decrease in O2 sats. ABG 7.48/36/66/26 sats 96% on 4L NC. BNP 269 WBC 8 Hgb 11.6 Plt 521 CXR: Improvement in the infiltrate in the left mid lung field but worsening infiltrates right upper lobe and right lower lobe medially Patient is currently on HHFNC at FiO2 59%, sats have been in the low 90s. He did receive a dose of Lasix on admission along with Rocephin and solumedrol. Plan: will order d-dimer and if elevated get CTA to rule out PE. Wean O2 as tolerated to keep sats > 90%. Continue Remdesivir. Start Zosyn and solumedrol. Resume home meds. Start Levemir and SSI. Continue bronchodilators and vitamin support. Monitor resp status closely. Follow AM labs, ABG and imaging. Time spent for clinical assessment, physical examination, reviewing labs/imaging and documentation greater than 45 mins. Past Medical History Past Medical History: Arthritis, Cirrhosis, CHF, COPD, Coronary Artery Disease, CVA, Diabetes, Dyslipidemia, GERD and Hypertension Past Surgical History Surgical History: Unknown Family History Family Medical History: Diabetes Mellitus, Coronary Artery Disease and Heart Failure Social History Does patient currently use any type of tobacco product: No Have you used tobacco products in the last 12 months: No Type of Tobacco Use: None Does any household member use tobacco: No Alcohol Use: None Drug Use: None Prescription drug monitoring program results: PDMP reviewed and no concerns identified Medications Home Medications: No Known Drug Allergies Allergy (Verified 11/30/18 11:11) CONTINUE taking the following medications acetaminophen [Tylenol] 650 mg PO Q6HR PRN 04/05/20 [History] ascorbic acid (vitamin C) 1,000 mg PO BID 04/05/20 [History] atorvastatin [Lipitor] 10 mg PO HS 04/05/20 [History] famotidine 40 mg PO HS 04/05/20 [History] furosemide 20 mg PO Q24H PRN 04/05/20 [History] glimepiride 4 mg PO DAILY 04/05/20 [History] insulin detemir U-100 [Levemir Flexpen] 20 unit SUBCUT HS 04/05/20 [History] loratadine [Claritin] 10 mg PO DAILY 04/05/20 [History] prednisone 20 mg PO DAILY 04/05/20 [History] zinc 220 mg PO BID 04/05/20 [History] Labs Result Diagrams: 04/06/20 06:13 04/06/20 06:13 Labs: Laboratory WBC 8.0 X10^3/uL (3.6-10.0) 04/06/20 06:13 RBC 4.19 X10^6/uL (4.7-6.0) L 04/06/20 06:13 Hgb 11.6 g/dL (13.5-18.0) L 04/06/20 06:13 Hct 35.6 % (42.0-54.0) L 04/06/20 06:13 MCV 85.0 fL (80.0-100.0) 04/06/20 06:13 MCH 27.8 pg (27.0-34.0) 04/06/20 06:13 MCHC 32.7 g/dL (33.0-35.0) L 04/06/20 06:13 RDW 15.5 % (11.6-16.5) 04/06/20 06:13 Plt Count 521 X10^3/uL (150.0-450.0) H 04/06/20 06:13 Plt Count Comment Adequate (ADEQUATE) 04/06/20 06:13 MPV 7.3 fL (7.4-11.0) L 04/06/20 06:13 Neut % (Auto) 68.2 % (42.0-75.0) 04/06/20 06:13 Lymph % (Auto) 12.4 % (21.0-51.0) L 04/06/20 06:13 [place] % (Auto) 16.7 % (0.0-13.0) H 04/06/20 06:13 Eos % (Auto) 1.6 % (0.9-2.9) 04/06/20 06:13 Baso % (Auto) 1.1 % (0.2-1.0) H 04/06/20 06:13 Neut # (Auto) 5.4 x10^3/uL (2.2-4.8) H 04/06/20 06:13 Lymph # (Auto) 1.0 X10^3/uL (1.3-2.9) L 04/06/20 06:13 [place] # (Auto) 1.3 x10^3/uL (0.3-0.8) H 04/06/20 06:13 Eos # (Auto) 0.1 x10^3/uL (0.0-0.2) 04/06/20 06:13 Baso # (Auto) 0.1 X10^3/uL (0.0-0.1) 04/06/20 06:13 Absolute Nucleated RBC 0.1 /100WBC 04/06/20 06:13 Total Counted 100 04/06/20 06:13 Neutrophils % (Manual) 60 % (39-76) 04/06/20 06:13 Band Neutrophils % 2 % (0-10) 04/06/20 06:13 Lymphocytes % (Manual) 15 % (13-43) 04/06/20 06:13 Monocytes % (Manual) 18 % (4-9) H 04/06/20 06:13 Eosinophils % (Manual) 4 % (0-6) 04/06/20 06:13 Metamyelocytes % 1 04/06/20 06:13 Plt Morphology Comment Normal (NORMAL) 04/06/20 06:13 RBC Morphology Normal (NORMAL) 04/06/20 06:13 PT 15.9 SECONDS (11.8-14.3) 04/06/20 06:13 INR Target Range - 04/06/20 06:13 INR 1.31 (0.8-1.3) H 04/06/20 06:13 APTT 35.3 SECONDS (22.9-36.5) 04/06/20 06:13 PTT Comment - 04/06/20 06:13 D-Dimer 4.00 ug/ml (0.0-0.57) H* 04/06/20 06:13 Sample Site Rr 04/05/20 09:33 ABG pH 7.480 (7.35-7.45) H 04/05/20 09:33 ABG pCO2 36.0 mmHg (35.0-45.0) 04/05/20 09:33 ABG pO2 66.0 mmHg (80.0-100.0) L 04/05/20 09:33 ABG HCO3 26.8 mmol/L (22-26) H 04/05/20 09:33 ABG O2 Saturation 94.0 % (90-100) 04/05/20 09:33 ABG Base Excess 3.3 mmol/L (-2.0-2.0) H 04/05/20 09:33 Hai Test + 04/05/20 09:33 A-a Gradient 174.0 mmHg 04/05/20 09:33 FiO2 40.0 04/05/20 09:33 Blood Gas Comments Oswaldo well gmb 04/05/20 09:33 Sodium 137 mmol/L (136-145) 04/06/20 06:13 Corrected Sodium 139 mmol/L (136-145) 04/06/20 06:13 Potassium 3.9 mmol/L (3.5-5.1) 04/06/20 06:13 Chloride 102 mmol/L (98-107) 04/06/20 06:13 Carbon Dioxide 24.9 mmol/L (21-32) 04/06/20 06:13 BUN 11 mg/dL (7-18) 04/06/20 06:13 Creatinine 0.91 mg/dL (0.70-1.30) 04/06/20 06:13 Est GFR (MDRD) Af Amer > 60 (>60) 04/06/20 06:13 Est GFR (MDRD) Non-Af > 60 (>60) 04/06/20 06:13 Glucose 172 mg/dL (65-99) H 04/06/20 06:13 POC Glucose (mg/dL) 159 mg/dL (65-99) H 04/06/20 06:01 Lactic Acid 1.8 mmol/L (0.4-2.0) 04/05/20 09:32 Calcium 8.6 mg/dL (8.5-10.1) 04/06/20 06:13 Corrected Calcium 10.2 mg/dL (8.5-10.1) H 04/06/20 06:13 Magnesium 1.9 mg/dL (1.7-2.9) 04/06/20 06:13 Total Bilirubin 1.20 mg/dL (0.2-1.0) H 04/06/20 06:13 AST 136 Units/L (15-37) H 04/06/20 06:13 ALT 182 Units/L (12-78) H 04/06/20 06:13 Alkaline Phosphatase 143 Units/L (46-116) H 04/06/20 06:13 Creatine Kinase 62 Units/L (39-308) 04/05/20 09:32 CK-MB (CK-2) < 1.0 ng/mL (0-4.0) 04/05/20 09:32 CK/CKMB % Calc 1.6 % (<4) 04/05/20 09:32 Troponin I 0.02 ng/mL (0-1.5) 04/05/20 09:32 B-Natriuretic Peptide 269 pg/mL (0-79) H 04/05/20 09:32 Total Protein 7.3 g/dL (6.4-8.2) 04/06/20 06:13 Albumin 2.0 g/dL (3.4-5.0) L 04/06/20 06:13 Globulin 5.3 g/dL (2.5-4.5) H 04/06/20 06:13 Albumin/Globulin Ratio 0.4 Ratio (1.1-2.1) L 04/06/20 06:13 Specimen Type Catherized urine 04/05/20 18:53 Urine Color Yellow (YELLOW) 04/05/20 18:53 Urine Appearance Clear (CLEAR) 04/05/20 18:53 Urine pH 6.5 (5.0 - 8.0) 04/05/20 18:53 Ur Specific White 1.010 (1.000-1.030) 04/05/20 18:53 Urine Protein 2+ (NEGATIVE) 04/05/20 18:53 Urine Glucose (UA) 3+ (NEGATIVE) 04/05/20 18:53 Urine Ketones Negative (NEGATIVE) 04/05/20 18:53 Urine Occult Blood Negative (NEGATIVE) 04/05/20 18:53 Urine Nitrite Negative (NEGATIVE) 04/05/20 18:53 Urine Bilirubin Negative (NEGATIVE) 04/05/20 18:53 Urine Urobilinogen 2+ (NORMAL) 04/05/20 18:53 Ur Leukocyte Esterase Negative (NEGATIVE) 04/05/20 18:53 Urine RBC None seen /HPF (0-3) 04/05/20 18:53 Urine WBC None seen /HPF (0-5) 04/05/20 18:53 Ur Squamous Epith Cells Moderate /HPF (NEGATIVE) 04/05/20 18:53 Urine Bacteria Trace /HPF (NEGATIVE) 04/05/20 18:53 Ur Culture Indicated? No/not indicated 04/05/20 18:53 Review of Systems Constitutional: Weakness and Malaise Eyes: No Symptoms Reported ENT: No Symptoms Reported Respiratory: Cough, Shortness of Breath and SOB with Excertion Cardiovascular: No Symptoms Reported Gastrointestinal: No Symptoms Reported Genitourinary: No Symptoms Reported Musculoskeletal: Back Pain Skin: No Symptoms Reported Neurological: No Symptoms Reported Physical Exam Vital Signs: Temperature 99.0 F Pulse Rate [Left] 94 Pulse Rate 80 Respiratory Rate 24 Blood Pressure [Left Arm] 140/65 Blood Pressure 137/63 O2 Sat by Pulse Oximetry 89 Oriented: Normal Eyes: Normal Ear: Normal Nose: Normal Throat: Normal Respiratory: Diminished Throughout and Wheezes Throughout Cardiovascular: Tachycardia Auscultation: Bowel Sounds: Normal Palpation: Normal Tenderness: Normal Skin: Decreased [place] Musculoskeletal: Normal Psychiatric: Normal Mood Description: Calm Affect: Normal Speech Pattern: Clear and Appropriate Assessment/Plan (1) Acute respiratory failure with hypoxia: Status: Acute (2) Pneumonia due to COVID-19 virus: Status: Acute (3) COPD exacerbation: Status: Acute (4) CHF (congestive heart failure): Qualifiers: Heart failure chronicity: acute on chronic Heart failure type: combined systolic and diastolic Qualified Code(s): I50.43 - Acute on chronic combined systolic (congestive) and diastolic (congestive) heart failure Status: Acute (5) GERD (gastroesophageal reflux disease): Qualifiers: Esophagitis presence: without esophagitis Qualified Code(s): K21.9 - Gastro-esophageal reflux disease without esophagitis Status: Acute (6) Lung mass: Status: Acute (7) Transaminitis: Status: Acute (8) Uncontrolled diabetes mellitus: Qualifiers: Diabetes mellitus type: type 2 Glycemic state: with hyperglycemia Qualified Code(s): E11.65 - Type 2 diabetes mellitus with hyperglycemia Status: Acute (9) Hypertension: Qualifiers: Hypertension type: essential hypertension Qualified Code(s): I10 - Essential (primary) hypertension Status: Acute Review H&P Reviewed: Yes Patient was examined?: Yes
[2020-04-06] MEDS: SOLU-Medrol 125 MG VIAL IVP SCH ×3 (11:41→21:45)
[2020-04-06] MEDS: ZOSYN VIAL 3.375 GRAMS 3.375 G in NS 100 ML IV + SPIKE MINIBAG* 100 ML IV SCH ×3 (11:41→21:45)
[2020-04-06] MEDS: VITAMIN D3 125 mcg (5,000 UNITS) PO SCH (13:03)
[2020-04-06] MEDS: VITAMIN A PO SCH (13:03)
--- NOTE | 2020-04-06 13:05 | CT ---
HISTORYcovid, rule out PESTUDYCTA CHESTCOMPARISONOctmarcum [facility] [address]TECHNIQUEAxial CT images of the chest were obtained after the administration of 75 mL IV contrast utilizing a CTA protocol. 3D MIPS were performed and reviewed for further evaluation.Radiation dose: 750.40 mGy-cm total DLPFINDINGSNo significant pericardial effusion.No mediastinal or hilar lymphadenopathy.Coronary artery calcifications.Atherosclerotic changes to the aorta without aneurysm or dissection.Pulmonary arteries are normal in caliber without filling defects to suggest a pulmonary embolus to the level of the lobar pulmonary artery; peripheral pulmonary arteries are limited by motion.Airways are widely patent.Secretions along the left margin of the trachea and linear secretions in the right main bronchus.Thyroid appears normal.No pleural effusion.Diffuse scattered areas of infiltrate throughout both lungs; involving approximately 50 percent of the total lung parenchyma.No pneumothorax.No concerning lung parenchymal lesion identified.Small calcified gallstones layering in the dependent portion of the gallbladder with no imaging findings of acute cholecystitis.Otherwise, the imaged portion of the upper abdomen is unremarkable.No acute osseous abnormality.Multilevel mild degenerative disc disease with bridging marginal osteophytes in the mid to lower thoracic spine.Vertebral body heights maintained with normal alignment.IMPRESSION1. Diffuse scattered areas of infiltrate throughout both lungs; involving approximately 50 percent of the total lung parenchyma. Findings are consistent with the given history of a COVID-19 respiratory infection.2. No pulmonary embolus identified.3. Cholelithiasis with no imaging findings of acute cholecystitis.Electronically signed by: Nathan Oneal (Apr 06, 2020 13:04:14)
[2020-04-06] MEDS ORDERED: LEVEMIR SC SCH (21:00)
[2020-04-06] MEDS: PEPCID TAB 40 MG PO SCH (21:45)
[2020-04-06] MEDS: SNACK - Diabetic Appropriate PO SCH ×2 (21:45)
[2020-04-06] MEDS: LIPITOR TAB 10 MG PO SCH (21:45)
[2020-04-07] MEDS: DUONEB 0.5 MG/3 MG (3 mL) NEB SCH ×3 (05:22→21:00)
[2020-04-07] MEDS: ZOSYN VIAL 3.375 GRAMS 3.375 G in NS 100 ML IV + SPIKE MINIBAG* 100 ML IV SCH ×3 (05:45→21:55)
[2020-04-07] MEDS: SOLU-Medrol 125 MG VIAL IVP SCH ×3 (05:45→21:55)
[2020-04-07] MEDS: HumuLIN R SC PRN ×3 (05:45→16:04)
[2020-04-07 06:58] LABS: BASOPHILS % (AUTO) 0.4 % (0.2-1.0); HEMATOCRIT 37.6 % (42.0-54.0); HEMOGLOBIN 12.5 g/dL (13.5-18.0); LYMPHOCYTES # (AUTO) 0.8 X10^3/uL (1.3-2.9); LYMPHOCYTES % (AUTO) 8.6 % (21.0-51.0); MEAN CORPUSCULAR HEMOGLOBIN 28.5 pg (27.0-34.0); MEAN CORPUSCULAR HGB CONC 33.3 g/dL (33.0-35.0); MEAN CORPUSCULAR VOLUME 85.8 fL (80.0-100.0); MEAN PLATELET VOLUME 7.4 fL (7.4-11.0); MONOCYTES # (AUTO) 0.3 x10^3/uL (0.3-0.8); MONOCYTES % (AUTO) 3.8 % (0.0-13.0); NEUTROPHILS # (AUTO) 7.7 x10^3/uL (2.2-4.8); NEUTROPHILS % (AUTO) 87.2 % (42.0-75.0); PLATELET COUNT 535 X10^3/uL (150.0-450.0); RED BLOOD COUNT 4.39 X10^6/uL (4.7-6.0); RED CELL DISTRIBUTION WIDTH 15.5 % (11.6-16.5); WHITE BLOOD COUNT 8.8 X10^3/uL (3.6-10.0)
[2020-04-07 07:07] LABS: ALANINE AMINOTRANSFERASE 186 Units/L (12-78); ALKALINE PHOSPHATASE 136 Units/L (46-116); ASPARTATE AMINO TRANSFERASE 81 Units/L (15-37); BLOOD UREA NITROGEN 18 mg/dL (7-18); CALCIUM 8.5 mg/dL (8.5-10.1); CARBON DIOXIDE 23.3 mmol/L (21-32); CHLORIDE 104 mmol/L (98-107); COR CA(FOR HYPOALB) 10.1 mg/dL (8.5-10.1); COR NA(FOR HYPERGLY) 144 mmol/L (136-145); CREATININE 0.87 mg/dL (0.70-1.30); SODIUM 140 mmol/L (136-145); TOTAL PROTEIN 7.6 g/dL (6.4-8.2); eGFR NON BLACK RACES > 60 (>60)
[2020-04-07] MEDS: AMARYL TAB 4 MG PO SCH (09:34)
[2020-04-07] MEDS: LOVENOX INJ 30 MG SYR SC SCH ×2 (09:35→21:55)
[2020-04-07] MEDS: ZINC SULFATE PO SCH ×2 (09:35→21:55)
[2020-04-07] MEDS: REMDESIVIR 100 MG in NS 250 ML IV 250 ML IV SCH (09:36)
[2020-04-07] MEDS: VITAMIN A PO SCH (09:36)
[2020-04-07] MEDS: VITAMIN D3 125 mcg (5,000 UNITS) PO SCH (09:36)
[2020-04-07] MEDS: VITAMIN C PO SCH ×2 (10:30→21:55)
[2020-04-07] MEDS: CLARITIN PO SCH (11:28)
--- NOTE | 2020-04-07 11:37 | PCM.PROG ---
Progress Note Progress Note for Day of Date of Exam: 04/07/20 Subjective Subjective: Patient seen at bedside, no overnight events. He is currently on HHNC at FiO2 90%. Patient states he feels slightly better, breathing has improved a little bit. He did have to go up on his O2. Denies fever or chills. Denies GI Sx. Patient is being treated for COVID-19 pneumonia and acute res piratory failure. Labs: WBC 8.8 Hgb 12.5 Glucose 286 CRP 164 AST/ALT 81/186 CTA done yesterday: no PE, pulmonary opacities noted bilaterally, about 50% of the lung Plan: Wean O2 as tolerated, aggressive pulmonary toilet with bronchodilators. Continue immune support with vitamins. Continue Solumedrol, Remdesivir and Zosyn. Increase levemir to 20 units, continue SSI. Monitor AM labs, ABG and imaging. Time spent for clinical assessment, physical examination, reviewing labs/imaging, decision making and documentation greater than 45 mins. Past Medical Family Social History Past Med/Fam/Surg Hx: No changes since H&P Allergies: Allergies No Known Drug Allergies Allergy (Verified 11/30/18 11:11) Review of Systems ROS: No change since H&P Vital Signs and I&O's Vital Signs: Temperature 97.7 F Pulse Rate [Left] 81 Pulse Rate 83 Respiratory Rate 23 Blood Pressure [Left Arm] 137/67 Blood Pressure 137/63 O2 Sat by Pulse Oximetry 91 Intake and Output: Intake & Output 04/04/20 04/05/20 04/06/20 04/07/20 23:59 23:59 23:59 23:59 Intake Total 640 / 640 1443 / 1443 434 / 434 Output Total 300 / 300 1400 / 1400 275 / 275 Balance 340 / 340 43 / 43 159 / 159 Physical Exam Oriented: Normal Eyes: Normal Ear: Normal Nose: Normal Throat: Normal Respiratory: Generalized, Wheezes and Rhonchi Cardiovascular: Normal Auscultation: Bowel Sounds: Normal Tenderness: Normal Skin: Decreased [place] Musculoskeletal: Normal Psychiatric: Normal Mood Description: Calm Affect: Normal Speech Pattern: Clear and Appropriate Laboratory and Diagnostics Result Diagrams: 04/07/20 05:57 04/07/20 05:57 Labs: 04/05/20 09:40 Blood Blood Culture - Preliminary 04/05/20 09:32 Blood Blood Culture - Preliminary Laboratory WBC 8.8 X10^3/uL (3.6-10.0) 04/07/20 05:57 RBC 4.39 X10^6/uL (4.7-6.0) L 04/07/20 05:57 Hgb 12.5 g/dL (13.5-18.0) L 04/07/20 05:57 Hct 37.6 % (42.0-54.0) L 04/07/20 05:57 MCV 85.8 fL (80.0-100.0) 04/07/20 05:57 MCH 28.5 pg (27.0-34.0) 04/07/20 05:57 MCHC 33.3 g/dL (33.0-35.0) 04/07/20 05:57 RDW 15.5 % (11.6-16.5) 04/07/20 05:57 Plt Count 535 X10^3/uL (150.0-450.0) H 04/07/20 05:57 Plt Count Comment Adequate (ADEQUATE) 04/06/20 06:13 MPV 7.4 fL (7.4-11.0) 04/07/20 05:57 Neut % (Auto) 87.2 % (42.0-75.0) H 04/07/20 05:57 Lymph % (Auto) 8.6 % (21.0-51.0) L 04/07/20 05:57 [place] % (Auto) 3.8 % (0.0-13.0) 04/07/20 05:57 Eos % (Auto) 0.0 % (0.9-2.9) L 04/07/20 05:57 Baso % (Auto) 0.4 % (0.2-1.0) 04/07/20 05:57 Neut # (Auto) 7.7 x10^3/uL (2.2-4.8) H 04/07/20 05:57 Lymph # (Auto) 0.8 X10^3/uL (1.3-2.9) L 04/07/20 05:57 [place] # (Auto) 0.3 x10^3/uL (0.3-0.8) 04/07/20 05:57 Eos # (Auto) 0.0 x10^3/uL (0.0-0.2) 04/07/20 05:57 Baso # (Auto) 0.0 X10^3/uL (0.0-0.1) 04/07/20 05:57 Absolute Nucleated RBC 0.2 /100WBC 04/07/20 05:57 Total Counted 100 04/06/20 06:13 Neutrophils % (Manual) 60 % (39-76) 04/06/20 06:13 Band Neutrophils % 2 % (0-10) 04/06/20 06:13 Lymphocytes % (Manual) 15 % (13-43) 04/06/20 06:13 Monocytes % (Manual) 18 % (4-9) H 04/06/20 06:13 Eosinophils % (Manual) 4 % (0-6) 04/06/20 06:13 Metamyelocytes % 1 04/06/20 06:13 Plt Morphology Comment Normal (NORMAL) 04/06/20 06:13 RBC Morphology Normal (NORMAL) 04/06/20 06:13 PT 15.9 SECONDS (11.8-14.3) 04/06/20 06:13 INR Target Range - 04/06/20 06:13 INR 1.31 (0.8-1.3) H 04/06/20 06:13 APTT 35.3 SECONDS (22.9-36.5) 04/06/20 06:13 PTT Comment - 04/06/20 06:13 D-Dimer 4.00 ug/ml (0.0-0.57) H* 04/06/20 06:13 Sample Site Rr 04/05/20 09:33 ABG pH 7.480 (7.35-7.45) H 04/05/20 09:33 ABG pCO2 36.0 mmHg (35.0-45.0) 04/05/20 09:33 ABG pO2 66.0 mmHg (80.0-100.0) L 04/05/20 09:33 ABG HCO3 26.8 mmol/L (22-26) H 04/05/20 09:33 ABG O2 Saturation 94.0 % (90-100) 04/05/20 09:33 ABG Base Excess 3.3 mmol/L (-2.0-2.0) H 04/05/20 09:33 Hai Test + 04/05/20 09:33 A-a Gradient 174.0 mmHg 04/05/20 09:33 FiO2 40.0 04/05/20 09:33 Blood Gas Comments Oswaldo well gmb 04/05/20 09:33 Sodium 140 mmol/L (136-145) 04/07/20 05:57 Corrected Sodium 144 mmol/L (136-145) 04/07/20 05:57 Potassium 4.0 mmol/L (3.5-5.1) 04/07/20 05:57 Chloride 104 mmol/L (98-107) 04/07/20 05:57 Carbon Dioxide 23.3 mmol/L (21-32) 04/07/20 05:57 BUN 18 mg/dL (7-18) 04/07/20 05:57 Creatinine 0.87 mg/dL (0.70-1.30) 04/07/20 05:57 Est GFR (MDRD) Af Amer > 60 (>60) 04/07/20 05:57 Est GFR (MDRD) Non-Af > 60 (>60) 04/07/20 05:57 Glucose 286 mg/dL (65-99) H 04/07/20 05:57 POC Glucose (mg/dL) 268 mg/dL (65-99) H 04/07/20 05:14 Lactic Acid 1.8 mmol/L (0.4-2.0) 04/05/20 09:32 Calcium 8.5 mg/dL (8.5-10.1) 04/07/20 05:57 Corrected Calcium 10.1 mg/dL (8.5-10.1) 04/07/20 05:57 Magnesium 1.9 mg/dL (1.7-2.9) 04/06/20 06:13 Total Bilirubin 0.80 mg/dL (0.2-1.0) 04/07/20 05:57 AST 81 Units/L (15-37) H 04/07/20 05:57 ALT 186 Units/L (12-78) H 04/07/20 05:57 Alkaline Phosphatase 136 Units/L (46-116) H 04/07/20 05:57 Creatine Kinase 62 Units/L (39-308) 04/05/20 09:32 CK-MB (CK-2) < 1.0 ng/mL (0-4.0) 04/05/20 09:32 CK/CKMB % Calc 1.6 % (<4) 04/05/20 09:32 Troponin I 0.02 ng/mL (0-1.5) 04/05/20 09:32 C-Reactive Protein 164.30 mg/L (0-3.0) H 04/07/20 05:57 B-Natriuretic Peptide 269 pg/mL (0-79) H 04/05/20 09:32 Total Protein 7.6 g/dL (6.4-8.2) 04/07/20 05:57 Albumin 2.0 g/dL (3.4-5.0) L 04/07/20 05:57 Globulin 5.6 g/dL (2.5-4.5) H 04/07/20 05:57 Albumin/Globulin Ratio 0.4 Ratio (1.1-2.1) L 04/07/20 05:57 Specimen Type Catherized urine 04/05/20 18:53 Urine Color Yellow (YELLOW) 04/05/20 18:53 Urine Appearance Clear (CLEAR) 04/05/20 18:53 Urine pH 6.5 (5.0 - 8.0) 04/05/20 18:53 Ur Specific [place] 1.010 (1.000-1.030) 04/05/20 18:53 Urine Protein 2+ (NEGATIVE) 04/05/20 18:53 Urine Glucose (UA) 3+ (NEGATIVE) 04/05/20 18:53 Urine Ketones Negative (NEGATIVE) 04/05/20 18:53 Urine Occult Blood Negative (NEGATIVE) 04/05/20 18:53 Urine Nitrite Negative (NEGATIVE) 04/05/20 18:53 Urine Bilirubin Negative (NEGATIVE) 04/05/20 18:53 Urine Urobilinogen 2+ (NORMAL) 04/05/20 18:53 Ur Leukocyte Esterase Negative (NEGATIVE) 04/05/20 18:53 Urine RBC None seen /HPF (0-3) 04/05/20 18:53 Urine WBC None seen /HPF (0-5) 04/05/20 18:53 Ur Squamous Epith Cells Moderate /HPF (NEGATIVE) 04/05/20 18:53 Urine Bacteria Trace /HPF (NEGATIVE) 04/05/20 18:53 Ur Culture Indicated? No/not indicated 04/05/20 18:53 Plan (1) Acute respiratory failure with hypoxia: Status: Acute (2) Pneumonia due to COVID-19 virus: Status: Acute (3) COPD exacerbation: Status: Acute (4) CHF (congestive heart failure): Status: Acute Qualifiers: Heart failure chronicity: acute on chronic Heart failure type: combined systolic and diastolic Qualified Code(s): I50.43 - Acute on chronic combined systolic (congestive) and diastolic (congestive) heart failure (5) GERD (gastroesophageal reflux disease): Status: Acute Qualifiers: Esophagitis presence: without esophagitis Qualified Code(s): K21.9 - Gastro-esophageal reflux disease without esophagitis (6) Lung mass: Status: Acute (7) Transaminitis: Status: Acute (8) Uncontrolled diabetes mellitus: Status: Acute Qualifiers: Diabetes mellitus type: type 2 Glycemic state: with hyperglycemia Qualified Code(s): E11.65 - Type 2 diabetes mellitus with hyperglycemia (9) Hypertension: Status: Acute Qualifiers: Hypertension type: essential hypertension Qualified Code(s): I10 - Essential (primary) hypertension
[2020-04-07] MEDS: PULMICORT NEB TX 0.5 MG NEB SCH ×2 (14:11→21:00)
[2020-04-07] MEDS ORDERED: LEVEMIR SC SCH (21:00)
[2020-04-07] MEDS: PEPCID TAB 40 MG PO SCH (21:55)
[2020-04-07] MEDS: LIPITOR TAB 10 MG PO SCH (21:55)
[2020-04-07] MEDS: SNACK - Diabetic Appropriate PO SCH (21:55)
--- NOTE | 2020-04-08 05:03 | RAD ---
PROCEDURE: Chest X-ray 1 View .HISTORY: COVID PNEUMONIA .TECHNIQUE: AP view .COMPARISON: 04/05/2020.TECHNICAL QUALITY: Satisfactory .FINDINGS:Unchanged prominent size heart.No mediastinal widening.Continued moderately severe consolidation both lung franz with some increase in density both upper lung franz. No pleural fluid or pneumothorax.IMPRESSION:1. Mildly increased pneumonia bilaterally.2. Unchanged prominent size heart.Electronically signed by: All Sánchez (Apr 08, 2020 05:02:19)
[2020-04-08] MEDS: DUONEB 0.5 MG/3 MG (3 mL) NEB SCH ×2 (05:15→12:53)
[2020-04-08] MEDS: SOLU-Medrol 125 MG VIAL IVP SCH ×2 (05:19→15:00)
[2020-04-08] MEDS: ZOSYN VIAL 3.375 GRAMS 3.375 G in NS 100 ML IV + SPIKE MINIBAG* 100 ML IV SCH ×2 (05:19→15:45)
[2020-04-08 05:23] LABS: ABG ALLEN TEST POS; ABG BASE EXCESS 2.9 mmol/L (-2.0-2.0); ABG HCO3 25.3 mmol/L (22-26)
[2020-04-08] MEDS: HumuLIN R SC PRN ×3 (06:40→17:02)
[2020-04-08 07:06] LABS: BASOPHILS % (AUTO) 0.3 % (0.2-1.0); HEMATOCRIT 38.3 % (42.0-54.0); HEMOGLOBIN 12.5 g/dL (13.5-18.0); LYMPHOCYTES # (AUTO) 0.7 X10^3/uL (1.3-2.9); LYMPHOCYTES % (AUTO) 5.8 % (21.0-51.0); MEAN CORPUSCULAR HGB CONC 32.6 g/dL (33.0-35.0); MEAN CORPUSCULAR VOLUME 85.6 fL (80.0-100.0); MEAN PLATELET VOLUME 7.3 fL (7.4-11.0); MONOCYTES # (AUTO) 0.9 x10^3/uL (0.3-0.8); MONOCYTES % (AUTO) 7.4 % (0.0-13.0); NEUTROPHILS # (AUTO) 11.1 x10^3/uL (2.2-4.8); NEUTROPHILS % (AUTO) 86.5 % (42.0-75.0); PLATELET COUNT 635 X10^3/uL (150.0-450.0); RED BLOOD COUNT 4.47 X10^6/uL (4.7-6.0); RED CELL DISTRIBUTION WIDTH 15.1 % (11.6-16.5); WHITE BLOOD COUNT 12.8 X10^3/uL (3.6-10.0)
[2020-04-08 07:27] LABS: ALANINE AMINOTRANSFERASE 228 Units/L (12-78); ALBUMIN 2.1 g/dL (3.4-5.0); ALKALINE PHOSPHATASE 143 Units/L (46-116); ASPARTATE AMINO TRANSFERASE 111 Units/L (15-37); BLOOD UREA NITROGEN 19 mg/dL (7-18); CALCIUM 8.4 mg/dL (8.5-10.1); CARBON DIOXIDE 22.2 mmol/L (21-32); CHLORIDE 107 mmol/L (98-107); COR CA(FOR HYPOALB) 9.9 mg/dL (8.5-10.1); COR NA(FOR HYPERGLY) 147 mmol/L (136-145); CREATININE 0.93 mg/dL (0.70-1.30); SODIUM 142 mmol/L (136-145); TOTAL PROTEIN 7.5 g/dL (6.4-8.2); eGFR NON BLACK RACES > 60 (>60)
[2020-04-08] MEDS ORDERED: LEVEMIR SC SCH (09:00)
[2020-04-08] MEDS: VITAMIN D3 125 mcg (5,000 UNITS) PO SCH (10:00)
[2020-04-08] MEDS: ZINC SULFATE PO SCH (10:00)
[2020-04-08] MEDS: AMARYL TAB 4 MG PO SCH (10:00)
[2020-04-08] MEDS: VITAMIN C PO SCH (10:00)
[2020-04-08] MEDS: CLARITIN PO SCH (10:00)
[2020-04-08] MEDS: REMDESIVIR 100 MG in NS 250 ML IV 250 ML IV SCH (10:00)
[2020-04-08] MEDS: VITAMIN A PO SCH (10:00)
[2020-04-08] MEDS ORDERED: NS 100 ML IV 100 ML IV ONE (11:01)
[2020-04-08] MEDS: PULMICORT NEB TX 0.5 MG NEB SCH (11:18)
--- NOTE | 2020-04-08 11:30 | PCM.PROG ---
Progress Note Progress Note for Day of Date of Exam: 04/08/20 Subjective Subjective: Patient seen at bedside, no overnight events. He is currently on HHNC at FiO2 92%. Patient states he feels slightly better, breathing has improved a little bit. Denies fever or chills. Denies GI Sx. Patient is being treated for COVID-19 pneumonia and acute respiratory failure. Labs: WBC 12.8 Hgb 12.5 Glucose 289 AST/ALT: 111/228 AB.52/31/55/25 on FiO2 92% CTA: no PE, pulmonary opacities noted bilaterally, about 50% of the lung CXR: mildly increased pneumonia bilaterally Plan: Will order an echo to evaluate LV function. Wean O2 as tolerated, aggressive pulmonary toilet with bronchodilators. Will also add flutter valve. Continue immune support with vitamins. Continue Solumedrol, Remdesivir and Zosyn. Increase levemir to 15 units BID, continue SSI. PT/OT as tolerated. Monitor AM labs, ABG and imaging. Time spent for clinical assessment, physical examination, reviewing labs/imaging, decision making and documentation greater than 45 mins. Past Medical Family Social History Past Med/Fam/Surg Hx: No changes since H&P Allergies: Allergies No Known Drug Allergies Allergy (Verified 11/30/18 11:11) Review of Systems ROS: No change since H&P Vital Signs and I&O's Vital Signs: Temperature 98.8 F Pulse Rate [Left] 73 Pulse Rate 72 Respiratory Rate 24 Blood Pressure [Left Arm] 149/71 Blood Pressure 137/63 O2 Sat by Pulse Oximetry 92 Intake and Output: Intake & Output 04/05/20 04/06/20 04/07/20 04/08/20 23:59 23:59 23:59 23:59 Intake Total 640 / 640 1443 / 1443 1868 / 1868 598 / 598 Output Total 300 / 300 1400 / 1400 1425 / 1425 375 / 375 Balance 340 / 340 43 / 43 443 / 443 223 / 223 Physical Exam Oriented: Normal Eyes: Normal Ear: Normal Nose: Normal Throat: Normal Respiratory: Generalized, Wheezes and Rhonchi Cardiovascular: Normal Auscultation: Bowel Sounds: Normal Tenderness: Normal Skin: Decreased Turgur Musculoskeletal: Normal Psychiatric: Normal Mood Description: Calm Affect: Normal Speech Pattern: Clear and Appropriate Laboratory and Diagnostics Result Diagrams: 04/08/20 05:35 04/08/20 05:35 Labs: 04/05/20 09:40 Blood Blood Culture - Preliminary 04/05/20 09:32 Blood Blood Culture - Preliminary Laboratory WBC 12.8 X10^3/uL (3.6-10.0) H 04/08/20 05:35 RBC 4.47 X10^6/uL (4.7-6.0) L 04/08/20 05:35 Hgb 12.5 g/dL (13.5-18.0) L 04/08/20 05:35 Hct 38.3 % (42.0-54.0) L 04/08/20 05:35 MCV 85.6 fL (80.0-100.0) 04/08/20 05:35 MCH 28.0 pg (27.0-34.0) 04/08/20 05:35 MCHC 32.6 g/dL (33.0-35.0) L 04/08/20 05:35 RDW 15.1 % (11.6-16.5) 04/08/20 05:35 Plt Count 635 X10^3/uL (150.0-450.0) H 04/08/20 05:35 Plt Count Comment Adequate (ADEQUATE) 04/06/20 06:13 MPV 7.3 fL (7.4-11.0) L 04/08/20 05:35 Neut % (Auto) 86.5 % (42.0-75.0) H 04/08/20 05:35 Lymph % (Auto) 5.8 % (21.0-51.0) L 04/08/20 05:35 [place] % (Auto) 7.4 % (0.0-13.0) 04/08/20 05:35 Eos % (Auto) 0.0 % (0.9-2.9) L 04/08/20 05:35 Baso % (Auto) 0.3 % (0.2-1.0) 04/08/20 05:35 Neut # (Auto) 11.1 x10^3/uL (2.2-4.8) H 04/08/20 05:35 Lymph # (Auto) 0.7 X10^3/uL (1.3-2.9) L 04/08/20 05:35 [place] # (Auto) 0.9 x10^3/uL (0.3-0.8) H 04/08/20 05:35 Eos # (Auto) 0.0 x10^3/uL (0.0-0.2) 04/08/20 05:35 Baso # (Auto) 0.0 X10^3/uL (0.0-0.1) 04/08/20 05:35 Absolute Nucleated RBC 0.0 /100WBC 04/08/20 05:35 Total Counted 100 04/06/20 06:13 Neutrophils % (Manual) 60 % (39-76) 04/06/20 06:13 Band Neutrophils % 2 % (0-10) 04/06/20 06:13 Lymphocytes % (Manual) 15 % (13-43) 04/06/20 06:13 Monocytes % (Manual) 18 % (4-9) H 04/06/20 06:13 Eosinophils % (Manual) 4 % (0-6) 04/06/20 06:13 Metamyelocytes % 1 04/06/20 06:13 Plt Morphology Comment Normal (NORMAL) 04/06/20 06:13 RBC Morphology Normal (NORMAL) 04/06/20 06:13 PT 15.9 SECONDS (11.8-14.3) 04/06/20 06:13 INR Target Range - 04/06/20 06:13 INR 1.31 (0.8-1.3) H 04/06/20 06:13 APTT 35.3 SECONDS (22.9-36.5) 04/06/20 06:13 PTT Comment - 04/06/20 06:13 D-Dimer 4.00 ug/ml (0.0-0.57) H* 04/06/20 06:13 Sample Site Lrad 04/08/20 05:15 ABG pH 7.520 (7.35-7.45) H 04/08/20 05:15 ABG pCO2 31.0 mmHg (35.0-45.0) L 04/08/20 05:15 ABG pO2 55.0 mmHg (80.0-100.0) L 04/08/20 05:15 ABG HCO3 25.3 mmol/L (22-26) 04/08/20 05:15 ABG O2 Saturation 92.0 % (90-100) 04/08/20 05:15 ABG Base Excess 2.9 mmol/L (-2.0-2.0) H 04/08/20 05:15 Hai Test Pos 04/08/20 05:15 A-a Gradient 562.0 mmHg 04/08/20 05:15 FiO2 92.0 04/08/20 05:15 Blood Gas Comments Oswaldo well ah 04/08/20 05:15 Sodium 142 mmol/L (136-145) 04/08/20 05:35 Corrected Sodium 147 mmol/L (136-145) H 04/08/20 05:35 Potassium 4.0 mmol/L (3.5-5.1) 04/08/20 05:35 Chloride 107 mmol/L (98-107) 04/08/20 05:35 Carbon Dioxide 22.2 mmol/L (21-32) 04/08/20 05:35 BUN 19 mg/dL (7-18) H 04/08/20 05:35 Creatinine 0.93 mg/dL (0.70-1.30) 04/08/20 05:35 Est GFR (MDRD) Af Amer > 60 (>60) 04/08/20 05:35 Est GFR (MDRD) Non-Af > 60 (>60) 04/08/20 05:35 Glucose 289 mg/dL (65-99) H 04/08/20 05:35 POC Glucose (mg/dL) 276 mg/dL (65-99) H 04/08/20 05:22 Lactic Acid 1.8 mmol/L (0.4-2.0) 04/05/20 09:32 Calcium 8.4 mg/dL (8.5-10.1) L 04/08/20 05:35 Corrected Calcium 9.9 mg/dL (8.5-10.1) 04/08/20 05:35 Magnesium 1.9 mg/dL (1.7-2.9) 04/06/20 06:13 Total Bilirubin 0.70 mg/dL (0.2-1.0) 04/08/20 05:35 AST 111 Units/L (15-37) H 04/08/20 05:35 ALT 228 Units/L (12-78) H 04/08/20 05:35 Alkaline Phosphatase 143 Units/L (46-116) H 04/08/20 05:35 Creatine Kinase 62 Units/L (39-308) 04/05/20 09:32 CK-MB (CK-2) < 1.0 ng/mL (0-4.0) 04/05/20 09:32 CK/CKMB % Calc 1.6 % (<4) 04/05/20 09:32 Troponin I 0.02 ng/mL (0-1.5) 04/05/20 09:32 C-Reactive Protein 164.30 mg/L (0-3.0) H 04/07/20 05:57 B-Natriuretic Peptide 269 pg/mL (0-79) H 04/05/20 09:32 Total Protein 7.5 g/dL (6.4-8.2) 04/08/20 05:35 Albumin 2.1 g/dL (3.4-5.0) L 04/08/20 05:35 Globulin 5.4 g/dL (2.5-4.5) H 04/08/20 05:35 Albumin/Globulin Ratio 0.4 Ratio (1.1-2.1) L 04/08/20 05:35 Specimen Type Catherized urine 04/05/20 18:53 Urine Color Yellow (YELLOW) 04/05/20 18:53 Urine Appearance Clear (CLEAR) 04/05/20 18:53 Urine pH 6.5 (5.0 - 8.0) 04/05/20 18:53 Ur Specific [place] 1.010 (1.000-1.030) 04/05/20 18:53 Urine Protein 2+ (NEGATIVE) 04/05/20 18:53 Urine Glucose (UA) 3+ (NEGATIVE) 04/05/20 18:53 Urine Ketones Negative (NEGATIVE) 04/05/20 18:53 Urine Occult Blood Negative (NEGATIVE) 04/05/20 18:53 Urine Nitrite Negative (NEGATIVE) 04/05/20 18:53 Urine Bilirubin Negative (NEGATIVE) 04/05/20 18:53 Urine Urobilinogen 2+ (NORMAL) 04/05/20 18:53 Ur Leukocyte Esterase Negative (NEGATIVE) 04/05/20 18:53 Urine RBC None seen /HPF (0-3) 04/05/20 18:53 Urine WBC None seen /HPF (0-5) 04/05/20 18:53 Ur Squamous Epith Cells Moderate /HPF (NEGATIVE) 04/05/20 18:53 Urine Bacteria Trace /HPF (NEGATIVE) 04/05/20 18:53 Ur Culture Indicated? No/not indicated 04/05/20 18:53 Plan (1) Acute respiratory failure with hypoxia: Status: Acute (2) Pneumonia due to COVID-19 virus: Status: Acute (3) COPD exacerbation: Status: Acute (4) CHF (congestive heart failure): Status: Acute Qualifiers: Heart failure chronicity: acute on chronic Heart failure type: combined systolic and diastolic Qualified Code(s): I50.43 - Acute on chronic combined systolic (congestive) and diastolic (congestive) heart failure (5) GERD (gastroesophageal reflux disease): Status: Acute Qualifiers: Esophagitis presence: without esophagitis Qualified Code(s): K21.9 - Gastro-esophageal reflux disease without esophagitis (6) Lung mass: Status: Acute (7) Transaminitis: Status: Acute (8) Uncontrolled diabetes mellitus: Status: Acute Qualifiers: Diabetes mellitus type: type 2 Glycemic state: with hyperglycemia Qualified Code(s): E11.65 - Type 2 diabetes mellitus with hyperglycemia (9) Hypertension: Status: Acute Qualifiers: Hypertension type: essential hypertension Qualified Code(s): I10 - Essential (primary) hypertension
[2020-04-08] MEDS: LOVENOX INJ 30 MG SYR SC SCH (11:42)
[2020-04-08 16:08] VITALS: BP 148/66
[2020-04-08] MEDS ORDERED: LASIX IVP ONE ×2 (17:27→17:30)
[2020-04-08 17:32] LABS: ABG BASE EXCESS -9.5 mmol/L (-2.0-2.0); ABG HCO3 18.7 mmol/L (22-26)
[2020-04-08] MEDS ORDERED: MORPHINE SULFATE INJ 2 MG INJ IVP PRN (17:36)
[2020-04-08] MEDS ORDERED: MORPHINE SULFATE INJ 2 MG INJ ONE (17:47)
[2020-04-08] MEDS ORDERED: ADRENALINE CHL INJ (ABBOJECT) IVP ONE ×5 (18:21→18:32)
== END 2020-04-08 21:05 | disposition expired | DRG 177 ==
LOC: ER 08:42 → OBS 13:51 → MED/SURG 04-06 16:50
PROVIDERS: ADMIT Internal Medicine; ATTEND Internal Medicine